=== PATIENT | female | born 1945 | race Caucasian/White ===

== ENCOUNTER → 2016-04-25 | Outpatient (CLI) | payer BC ==
[~2016-04-25] VITALS: Ht 157.5 cm; Wt 93.0 kg
[~2016-04-25] MED LIST: ACET-1256 PO; ALEN70TA2 PO; ATEN50TA8 PO; CHOL1CAP67 PO; FEXO1TAB49 PO; FLUT0.15 INTNAS; GLCSR/500 PO; HYDR-5688 PO; LISI2.5T5 PO; MELO7.5T5 PO; MULT-506 PO; PSYL48.59 PO; SYN137 PO; VENL-273 PO; ZCR10 PO
[2016-04-25 12:50] VITALS: Ht 157.5 cm; Wt 93.0 kg
== END | disposition home or self-care (01) ==
LOC: C.NRED 10:23
PROVIDERS: ATTEND Family Medicine
DX: E11.9 Type 2 diabetes mellitus without complications (principal)

== ENCOUNTER → 2017-01-24 | Outpatient (CLI) | payer BC ==
[~2017-01-24] MED LIST changes: -HYDR-5688 PO; -LISI2.5T5 PO
--- NOTE | 2017-01-24 15:52 | MAMMOGRAPHY REPORT ---
BILATERAL DIGITAL SCREENING MAMMOGRAM WITH CAD: 01/24/2017 CLINICAL HISTORY: Routine screening. Patient has no complaints. TECHNIQUE: Current study was also evaluated with a Computer Aided Detection (CAD) system. Bilateral CC and MLO views were obtained. COMPARISON: Comparison is made to exams dated: 01/17/2016 mammogram, 12/16/2014 mammogram, 12/10/2013 m ammogram, 11/17/2012 mammogram, and 10/24/2011 mammogram - [facility]. BREAST COMPOSITION: The tissue of both breasts is heterogeneously dense, which may obscure small mas ses. FINDINGS: No suspicious masses, calcifications, or areas of architectural distortion are noted in ei ther breast. There has been no significant interval change compared to prior exams. A biopsy marker clip is again noted in the right superior breast. A linear scar marker denotes a scar on the left 12 :00 breast. Bilateral benign-appearing calcifications are again noted. Bilateral asymmetries are st able. IMPRESSION: ACR BI-RADS CATEGORY 2: BENIGN There is no mammographic evidence of malignancy. A 1 year screening mammogram is recommended. The pa tient will receive written notification of the results. Approximately 10% of breast cancers are not detected with mammography. A negative mammographic report should not delay biopsy if a clinically suggestive mass is present. Paola Del Real M.D. /:01/24/2017 15:28:38 Electric Locomotive Crane Operator: Bertha MCDOWELL(Elise)(Master), [facility] letter sent: Normal 1/2 BI-RADS Code: ACR BI-RADS Category 2: Benign
== END | disposition home or self-care (01) ==
LOC: C.MAMM 12:20
PROVIDERS: ATTEND Physician Assistant
DX: Z12.31 Encounter for screening mammogram for malignant neoplasm of breast (principal)

== ENCOUNTER 2017-02-05 07:47 | Inpatient (IN) | payer BC, OTHER ==
[2017-01-03 13:10] VITALS: Ht 157.5 cm; Wt 96.8 kg
--- NOTE | 2017-01-03 13:43 | PAT Medication Instructions ---
Service Date Jan 03, 2017. Current Home Medication List Acetaminophen (Tylenol), 1,000 MG PO PRN Alendronate Sodium (Fosamax), 70 MG PO WK Atenolol (Tenormin), 50 MG PO QAM Cholecalciferol (Vitamin D-3), 1,000 UNITS PO QAM Fexofenadine Hcl (Debbie Allergy), 1 TAB PO NOON Fluticasone Propionate (Nasal) (Flonase Allergy Relief), 2 SPRAYS INTNAS QAM Levothyroxine Sodium (Levothyroxine Sodium), 137 MCG PO QAM Meloxicam (Mobic), 15 MG PO QAM Metformin HCl (Metformin HCl ER), 500 MG PO QAM Multivitamin (Multivitamin), 1 TAB PO QAM Psyllium (Metamucil), 1 DOSE PO NOON Simvastatin (Simvastatin), 10 MG PO QAM Venlafaxine Hcl (Venlafaxine Hcl Er), 75 MG PO QAM Medication Instructions For Your Scheduled Surgery -Check with your surgeon for instructions regarding: Meloxicam (Mobic), 15 MG PO QAM - Continue as directed: Alendronate Sodium (Fosamax), 70 MG PO WK - Hold the following medications 48 hours prior to surgery: Metformin HCl (Metformin HCl ER), 500 MG PO QAM - Hold the following medications the morning of surgery: Multivitamin (Multivitamin), 1 TAB PO QAM Cholecalciferol (Vitamin D-3), 1,000 UNITS PO QAM Fexofenadine Hcl (Debbie Allergy), 1 TAB PO NOON Psyllium (Metamucil), 1 DOSE PO NOON - Take the following medications the morning of surgery with a sip of water: Simvastatin (Simvastatin), 10 MG PO QAM Venlafaxine Hcl (Venlafaxine Hcl Er), 75 MG PO QAM Levothyroxine Sodium (Levothyroxine Sodium), 137 MCG PO QAM Fluticasone Propionate (Nasal) (Flonase Allergy Relief), 2 SPRAYS INTNAS QAM Acetaminophen (Tylenol), 1,000 MG PO PRN (if needed up to 4 hours prior to surgery) Atenolol (Tenormin), 50 MG PO QAM If you have any questions please call us at [phone] or [phone] or [phone]
--- NOTE | 2017-01-03 14:28 | DIAGNOSTIC IMAGING REPORT ---
CHEST PREADMISSION(PA/LAT) CLINICAL HISTORY: 71 years-old Female presenting with preoperative assessment. TECHNIQUE: 01/03/2017 COMPARISON: None. FINDINGS: Cardiac silhouette top normal in size. Minimal bandlike opacity in the left lung base. Left shoulder arthroplasty. Upper abdomen normal. IMPRESSION: 1. Minimal left basilar atelectasis or scarring. No other focal infiltrate. No convincing evidence of acute cardiopulmonary disease. Electronically signed by: Alejandro Mcleod M.D. 01/03/2017 2:27 PM Dictated Date/Time: 01/03/2017 2:26 PM
[2017-01-03 15:30] LABS: BASO % 0.4 %; BASO ABS # 0.03 K/uL (0-0.2); COMPLETE YES; EOS % 2.8 %; HEMATOCRIT 42.7 % (37-47); IG% 0.3 %; LYMPH ABS # 3.12 K/uL (1.2-3.4); MEAN CELL VOLUME 93.6 fL (80-100); MEAN CORPUSCULAR HEMOGLOBIN 30.9 pg (25-34); MEAN PLATELET VOLUME 10.2 fL (7.4-10.4); MONO % 9.3 %; NEUT % 46.2 %; PLATELET COUNT 232 K/uL (130-400); RED BLOOD COUNT 4.56 M/uL (4.2-5.4); WHITE BLOOD COUNT 7.61 K/uL (4.8-10.8)
[2017-01-03 15:34] LABS: URINE APPEARANCE CLEAR (CLEAR); URINE BILIRUBIN NEG (NEG); URINE COLOR YELLOW; URINE NITRITE NEG (NEG); URINE PH 7.5 (4.5-7.5); URINE SPECIFIC GRAVITY 1.016 (1.000-1.030); UROBILINOGEN NEG (NEG); ZZUR CULT IF INDIC CLEAN CATCH NO
[2017-01-03 15:39] LABS: MANUAL MICROSCOPIC REQUIRED? NO; REVIEW REQ? NO
[2017-01-03 15:44] LABS: PARTIAL THROMBOPLASTIN RATIO 1.1; PROTHROMBIN TIME (PATIENT) 10.5 SECONDS (9.0-12.0)
[2017-01-03 16:09] LABS: BUN/CREATININE RATIO 23.5 (10-20); CALCIUM 9.2 mg/dl (8.5-10.1); CREATININE 0.66 mg/dl (0.60-1.20); POTASSIUM 4.4 mmol/L (3.5-5.1)
--- NOTE | 2017-02-04 19:34 | HISTORY & PHYSICAL EXAMINATION ---
DATE OF ADMISSION: 02/05/2017 CHIEF COMPLAINT: Chronic right knee pain. HISTORY OF PRESENT ILLNESS: This is a 71-year-old female patient of Dr. Helm, complaining of chronic right knee pain, longstanding, now progressively getting worse. The patient has failed conservative treatment including anti-inflammatories, Tylenol, intra-articular injections, and the use of a cane. The patient has increased pain with weightbearing activities and her pain does interfere with her activities of daily living. PAST MEDICAL HISTORY: Hypercholesterolemia, irregular heartbeat, snoring, diabetes mellitus, hypothyroidism, osteoarthritis, obesity, and kidney stones. SOCIAL HISTORY: Nonsmoker, nondrinker. PAST SURGICAL HISTORY: Breast biopsy on the left, left shoulder replacement, and right knee arthroscopy for torn meniscus. FAMILY HISTORY: Noncontributory. REVIEW OF SYSTEMS: The patient complains of chronic right knee pain, otherwise denies any shortness of breath, chest pain, nausea, vomiting, or any other joint complaints. MEDICATIONS: Include: 1. Meloxicam 50 mg daily. 2. Levothyroxine 137 mcg daily. 3. Simvastatin 10 mg daily. 4. Atenolol 50 mg daily. 5. Venlafaxine 75 mg daily. 6. Metformin 500 mg daily. 7. Vitamin D3 of 1000 international units daily. 8. Multivitamin daily. 9. Alendronate 70 mg weekly on Friday. 10. ES Tylenol as needed. 11. Debbie as needed. 12. Metamucil as needed. 13. Flonase 2 sprays daily as needed. ALLERGIES: No known drug allergies. PHYSICAL EXAMINATION: GENERAL: Well-developed, well-nourished 71-year-old female in no acute distress. She is alert and oriented x3 and pleasant. HEENT: Normocephalic, atraumatic. Extraocular motions are intact. Pupils are equal and reactive to light. HEART: Regular rate and rhythm. No murmurs appreciated. LUNGS: Clear. ABDOMEN: Soft and nontender. Bowel sounds are present. EXTREMITIES: Right knee reveals a varus deformity with a limited range of motion of 0-125 degrees. She has medial joint line tenderness, crepitation moderately with passive range of motion. She has 4/5 strength. NEUROLOGIC: Neurovascularly, she is intact in her right lower extremity. DIAGNOSES: Right knee end-stage osteoarthritis, hypercholesterolemia, irregular heartbeat, sleep apnea, diabetes mellitus, hypothyroidism, osteoarthritis, obesity, kidney stones. PLAN: The patient was advised of her diagnosis. Indications, risks, benefits, and postop course have all been reviewed. The patient wishes to proceed with a right total knee arthroplasty. Necessary consent forms, preoperative testing and clearances will be obtained.
[2017-02-05] VITALS (9 sets, daily range): BP systolic 108–151; BP diastolic 65–82; PULSE 66–85; TEMP 36.5–37.1; O2SAT 88–99
[~2017-02-05] VITALS: Ht 157.5 cm; Wt 96.8 kg
[2017-02-05] MEDS: TRANEXAMIC ACID INJ 1,000 MG in SYRINGE 0 ML IV SCH ×2 (06:00→06:30)
[~2017-02-05 07:47] MED LIST changes: +ACETAMINOPHEN 500 MG TAB PO SCH; +BUPIVACAINE 0.25% 30 ML VIAL ONE; +BUPIVACAINE 0.5 % 5 MG/1 ML PF 10ML VIAL ONE; +CEFAZOLIN 2000MG IV PUSH 10 ML IV SCH; +CeleBREX 200 MG CAP PO SCH; +FAMOTIDINE 20 MG TAB PO SCH; +FENTANYL CITRATE INJ 50 MCG/1 ML 2 ML VIAL ONE; +GABAPENTIN 300 MG CAP PO SCH; +LACTATED RINGER'S 1000ML 1,000 ML IV SCH; +LACTATED RINGER'S 1000ML 500 ML IV ONE; +LACTATED RINGER'S 1000ML IV SCH; +METOCLOPRAMIDE HCL 10 MG TAB PO SCH; +MIDAZOLAM HCL 1 MG/ML 2ML VIAL ONE; +ROPIVACAINE 5MG/ML 30 ML 150 MG, BUPIVACAINE 0.5% MPF INJ 30 ML, EpINEphrine HCL INJ 0.... INFIL SCH; +TRANEXAMIC ACID INJ 1,000 MG in SODIUM CHLORIDE 0.9% 100ML 100 ML IV SCH
--- NOTE | 2017-02-05 10:08 | History & Physical Bridge Note ---
H&P Re-Evaluation Bridge Note: I have examined the patient, reviewed the History & Physical and in the interval since the performance of the History & Physical I have noted the following changes of clinical significance: No changes noted
[2017-02-05] MEDS ORDERED: POVIDONE-IODINE OP SOLN 30 ML BTL ONE (10:18)
[2017-02-05] MEDS ORDERED: ORTHO JOINT ANESTHETIC ONE (10:18)
[2017-02-05] MEDS ORDERED: BACITRACIN 50000 UNIT VIAL ONE (10:19)
[2017-02-05] MEDS ORDERED: PROPOFOL IV EMULSION 10 MG/ML 20 ML VIAL IV ONE (11:17)
--- NOTE | 2017-02-05 12:55 | [facility] Post Operative Brief Note ---
Immediate Operative Summary Operative Date Feb 05, 2017. Pre-Operative Diagnosis Right knee end-stage osteoarthritis,obesity BMI 39 Post-Operative Diagnosis Same Procedure(s) Performed Right total Knee Arthroplasty Surgeon Dr Garza Lens Finisher Surgeon(s) Christi Epps PA-C Estimated Blood Loss 5cc Findings tricompartmental djd oa Specimens a. Right knee bone and tissue Drains 2 hemovac Anesthesia spinal sedation Complication(s) None Disposition Recovery Room / PACU
[2017-02-05] MEDS ORDERED: SOD PHOSPHATE/SOD BIPHOSPHATE ENEMA 132 ML BTL PR PRN (13:00)
[2017-02-05] MEDS ORDERED: ONDANSETRON INJ 2 MG/ML 2 ML VIAL IV PRN (13:00)
[2017-02-05] MEDS ORDERED: MAGNESIUM HYDROXIDE SUSP 30 ML UDC PO PRN (13:00)
[2017-02-05] MEDS ORDERED: ZOLPIDEM TARTRATE 5 MG TAB PO PRN (13:00)
[2017-02-05] MEDS ORDERED: BISACODYL 10 MG SUPP PR PRN (13:00)
[2017-02-05] MEDS ORDERED: METOCLOPRAMIDE HCL INJ 5 MG/ML 2 ML VIAL IV PRN (13:00)
[2017-02-05] MEDS ORDERED: MoRPHine SULFATE 2 MG/ML CARP IV PRN (13:00)
--- NOTE | 2017-02-05 13:18 | Anesthesiology Progress Note ---
Anesthesia Post Op Note Date & Time Feb 05, 2017 at 13:18 Vital Signs Pain Intensity: 0 Vital Signs Past 12 Hours Date Time Temp Pulse Resp B/P (MAP) Pulse Ox O2 Delivery O2 Flow Rate FiO2 02/05/17 13:15 74 19 114/67 98 Nasal Cannula 2 02/05/17 13:05 36.1 76 22 116/65 97 Nasal Cannula 2 02/05/17 12:55 67 23 91/58 99 Nasal Cannula 2 02/05/17 12:48 36.5 68 21 101/58 99 Oxymask 10 02/05/17 08:46 36.8 66 18 151/82 96 Room Air Notes Mental Status: alert / awake / arousable, participated in evaluation Pt Amnestic to Procedure: Yes Nausea / Vomiting: adequately controlled Pain: adequately controlled Airway Patency, RR, SpO2: stable & adequate BP & HR: stable & adequate Hydration State: stable & adequate Neuraxial Anesthesia: was administered, sensory block is resolving Anesthetic Complications: no major complications apparent
--- NOTE | 2017-02-05 13:18 | DIAGNOSTIC IMAGING REPORT ---
TWO VIEWS RIGHT KNEE CLINICAL HISTORY: Postoperative examination. FINDINGS: AP and crosstable lateral portable views of the right knee are obtained. A right knee arthroplasty is in near anatomic alignment. There has been undersurface remodeling of the patella. No definite acute fracture is seen. Indeterminant cortical irregularity seen along the medial tibial plateau. There are expected postoperative changes around the knee including a surgical drain, soft tissue edema, and subcutaneous gas. IMPRESSION: 1. Expected postoperative changes status post right knee arthroplasty. No definite acute fracture is seen. 2. Cortical irregularity is suggested along the medial tibial plateau, only seen on the frontal view. Clinical correlation will be required. Electronically signed by: Avery Bailon M.D. 02/05/2017 1:17 PM Dictated Date/Time: 02/05/2017 1:16 PM
[2017-02-05] MEDS ORDERED: EpHEDrine SULFATE INJ 50 MG/ML AMP IV PRN (13:30)
[2017-02-05] MEDS ORDERED: ATROPINE SULFATE 0.1 MG/ML 5ML SYR IV PRN (13:30)
[2017-02-05] MEDS ORDERED: GLUCAGON FOR INJ 1 MG VIAL SQ PRN (14:45)
[2017-02-05] MEDS ORDERED: MoRPHine SULFATE 4 MG/ML 1 ML CARP\\VIAL IV PRN (14:45)
[2017-02-05] MEDS ORDERED: DEXTROSE 50% 50 ML SYR IV PRN (14:45)
[2017-02-05] MEDS ORDERED: GLUCOSE 10 TABS/TUBE PO PRN (14:45)
[2017-02-05] MEDS ORDERED: GLUCOSE 40% GEL 15 GM TUBE PO PRN (14:45)
[2017-02-05] MEDS: SODIUM CHLORIDE 0.9% 1000ML 1,000 ML IV SCH (16:12)
[2017-02-05] MEDS: OXYCODONE HCL IR 5 MG TAB (IMMEDIATE RELEASE) PO PRN ×2 (16:56→21:24)
[2017-02-05] MEDS: CEFAZOLIN IV 2,000 MG in SYRINGE 0 ML IV SCH (18:32)
[2017-02-05] MEDS: INSULIN ASPART 100 UNITS/ML 3 ML PEN SC SCH ×2 (18:35→21:00)
--- NOTE | 2017-02-05 19:32 | Progress Note ---
Subjective Date of Service: Feb 05, 2017. Subjective Pt evaluation today including: conversation w/ patient, physical exam, chart review, lab review, review of inpatient medication list feeling ok post op A1c 6.2 reviewed with pt notes lifestyle could improve, exercise could improve. willing to make changes no other acute issues no other acute complaints Review of Systems all other ROS otherwise negative except for as above Objective Vital Signs Date Time Temp Pulse Resp B/P (MAP) Pulse Ox O2 Delivery O2 Flow Rate FiO2 02/05/17 19:20 36.8 85 18 114/71 (85) 94 Room Air 02/05/17 18:09 36.7 77 18 123/74 (90) 97 Nasal Cannula 2.0 02/05/17 16:32 36.7 69 18 119/73 (88) 98 Nasal Cannula 2.0 02/05/17 15:36 36.5 72 18 122/75 (91) 99 Nasal Cannula 2.0 02/05/17 15:06 36.5 73 18 130/82 (98) 99 Nasal Cannula 2.0 02/05/17 14:30 36.6 81 16 108/70 (83) 98 Nasal Cannula 2.0 02/05/17 14:30 Nasal Cannula 02/05/17 14:00 77 17 106/60 96 Nasal Cannula 2 02/05/17 13:45 75 18 110/60 96 Nasal Cannula 2 02/05/17 13:30 69 16 97/59 96 Nasal Cannula 2 02/05/17 13:15 74 19 114/67 98 Nasal Cannula 2 02/05/17 13:05 36.1 76 22 116/65 97 Nasal Cannula 2 02/05/17 12:55 67 23 91/58 99 Nasal Cannula 2 02/05/17 12:48 36.5 68 21 101/58 99 Oxymask 10 02/05/17 08:46 36.8 66 18 151/82 96 Room Air Physical Exam General Appearance: no apparent distress Eyes: EOMI ENT: hearing grossly normal Neck: trachea midline Respiratory/Chest: no respiratory distress, no accessory muscle use Neurologic/Psychiatric: first sampler II-XII nml as tested, alert, normal mood/affect Skin: normal color, warm/dry Laboratory Results Last 24 Hours Test 02/05/17 08:15 02/05/17 13:14 02/05/17 14:53 02/05/17 16:57 Bedside Glucose 117 mg/dl 100 mg/dl 98 mg/dl 91 mg/dl Assessment and Plan DM2 - A1c 6.2 on low dosing of metformin. low dose supplemental insulin for now , discussed further lifestyle change as she recovers as it appears she is at the brink of being able to eliminate the need for DM meds with lifestyle hypothyroid - continue synthroid hyperlipid - continue simvastatin DVT proph - per ortho
[2017-02-05] MEDS: ACETAMINOPHEN 500 MG TAB PO SCH (21:25)
[2017-02-05] MEDS: ASPIRIN 81 MG ECTAB PO SCH (21:25)
[2017-02-05] MEDS: DOCUSATE SODIUM 100 MG CAP PO SCH (21:25)
[2017-02-06] MEDS: CEFAZOLIN IV 2,000 MG in SYRINGE 0 ML IV SCH (01:39)
[2017-02-06] MEDS: SODIUM CHLORIDE 0.9% 1000ML 1,000 ML IV SCH (01:39)
[2017-02-06 02:00] VITALS: BP 114/72; PULSE 67; O2SAT 95
[2017-02-06] MEDS: OXYCODONE HCL IR 5 MG TAB (IMMEDIATE RELEASE) PO PRN ×2 (03:26→10:17)
[2017-02-06 03:42] VITALS: BP 105/64; PULSE 76; TEMP 36.9; O2SAT 97
[2017-02-06] MEDS: LEVOTHYROXINE 137 MCG TAB PO SCH (05:48)
[2017-02-06] MEDS: ACETAMINOPHEN 500 MG TAB PO SCH ×3 (05:48→21:11)
[2017-02-06 06:11] LABS: HEMATOCRIT 36.2 % (37-47); MEAN CORPUSCULAR HEMOGLOBIN 30.4 pg (25-34); MEAN CORPUSCULAR HGB CONC 32.3 g/dl (32-36); MEAN PLATELET VOLUME 9.2 fL (7.4-10.4); PLATELET COUNT 175 K/uL (130-400); RED BLOOD COUNT 3.85 M/uL (4.2-5.4); WHITE BLOOD COUNT 9.83 K/uL (4.8-10.8)
[2017-02-06 06:39] LABS: CALCIUM 7.8 mg/dl (8.5-10.1); CREATININE 0.69 mg/dl (0.60-1.20); POTASSIUM 4.1 mmol/L (3.5-5.1)
--- NOTE | 2017-02-06 07:05 | OPERATIVE REPORT ---
DATE OF OPERATION: 02/05/2017 INDICATION FOR PROCEDURE: The patient is a 71-year-old female with chronic progressive osteoarthritis in her right knee. Radiographs demonstrate she has [id number] in the medial compartment and she has a varus knee. She also has patellofemoral DJD. She also has obesity, BMI 39. PREOPERATIVE DIAGNOSES: End-stage osteoarthritis, right knee; obesity, body mass index 39. POSTOPERATIVE DIAGNOSES: End-stage osteoarthritis, right knee; obesity, body mass index 39. PROCEDURE: Right total knee arthroplasty. SURGEON: Tristin Garza MD BUCKLE STRAP DRUM OPERATOR: Chuckie Epps PA-C ANESTHESIA: Spinal sedation, Orthomix. ESTIMATED BLOOD LOSS: 50 mL. DRAINS: Two Hemovac. COMPLICATIONS: None. OPERATIVE PROCEDURE: The patient was taken to the operating room, anesthetized under spinal anesthesia and sedation. She was placed supine on the operating room table. Pneumatic tourniquet was placed on right upper obese thigh. Her right lower extremity was prepped and draped with ChloraPrep in usual sterile fashion. The patient did have Ancef IV preop. Her right lower extremity was elevated, exsanguinated with Esmarch bandage. Pneumatic tourniquet was raised to 350 mmHg because of the obesity. Knee exam demonstrates she had full extension and she had flexion until her thigh met her calf which was around 115 to 120 degrees. The knee had no particular instability and did have an obese leg. An anterior incision was made across the right knee, skin was incised a moderately deep layer of fat. Subcutaneous flaps were elevated. An incision was made through the medial retinaculum extended up into the mid third of the quadriceps tendon and extended down to the medial tibial tubercle. Intraarticular findings demonstrated she had tricompartmental DJD, [id number] in the medial compartment, she had grade 4 wear in her upper trochlear groove and central patella. She had tricompartmental osteophytes. I used the [employer] Journey 2.0 total knee arthroplasty system using [employer] MRI templating. She was sized for a 4 femur, 2 tibia, but we did upsize the tibia to 3 intraoperatively. The knee was exposed by excising the infrapatellar fat pad and the fat pad over the anterior femur for placement of the component in that area. We did some partial synovectomy of the suprapatellar pouch where there were some thickened synovitis and synovial bands. I released the lateral synovial bands. I did a subperiosteal peel lateral release around the patella, excised the cruciate ligaments, excised the medial meniscus remnants and lateral meniscus. I did not have to do any particular releases as she had a fairly balanced knee. With the femur exposed, the custom femoral cutting block was pinned in position and the distal femoral cut was made. Then the 5-in-1 cutting block with a size 4 femur was used. The anterior, posterior and chamfer cuts were made. Then the knee was extended and a subperiosteal peel lateral release was performed. The patient had a very tight lateral retinaculum and we had some difficulty everting the patella at all. The patella width was measured and width was reproduced using a freehand cut technique and we used a 29 patellar component. Drill holes were made and the excess lateral facet was beveled off to prevent any impingement on the femoral condyle of the prosthetic. Then the tibia was subluxed and the retractors were placed and the custom tibial cutting block was pinned in position. The proximal tibial cut was made. We used a lamina bargeman to assess ligamentous balance and ligaments were balanced in extension and flexion. Then the tibia was re-exposed and the tibial baseplate size 2 was placed, but we thought it was too small, so we went ahead with a 3 which gave more appropriate coverage. It was externally rotated in line with the tibial tubercle, pinned in position and the punch for the stem was used. The fourth femoral trial was inserted and centered and the notch cutting device was used. A collet was placed and we did trial tibial inserts and 13 insert gave balanced ligaments through full range of motion. The patella had some slight liftoff with maximum flexion, so we did do a lateral release of the lateral retinaculum leaving the synovium intact and this allowed the patella to track completely centrally at this time. The trials were removed. The anesthetic Orthomix cocktail was injected per protocol. The knee was copiously irrigated with pulsatile lavage, antibiotic solution and bacitracin. The final components were cemented with Simplex G cement. Final components were the 4 right Oxinium posterior stabilized [employer] Journey 2.0 femur and tibia size 3 and the polyethylene posterior stabilized high-flex 13 and the 29 patella dome patella. While the cement cured, we used Betadine soak per protocol. I then irrigated out copiously with antibiotic solution and bacitracin. Brought 2 drains out laterally and connected them to Hemovac. I then closed the quadriceps tendon and medial retinaculum with [id number] #1 Vicryl sutures. I took the knee full range of motion and repair was secured. The subcutaneous tissues were closed with interrupted 2-0 Vicryl and #1 Vicryl. Then we closed the skin with a ZipLine closure device. We placed protective barrier and Silverlon dressing over that and the tourniquet was let down. The patient had approximately 5 mL of blood loss and tolerated the procedure well. JENNIFER Murphy was my wheelchair van operator first responder, he functioned as wheelchair van operator first responder throughout the entire procedure. He assisted in patient positioning, prepping, draping, leg positioning, soft tissue retraction, instrument management and assisted in the skin closure, and will participate in the postoperative care of patient. I attest to the content of the Intraoperative Record and any orders documented therein. Any exception s are noted below.
[2017-02-06 07:10] VITALS: BP 110/68; PULSE 75; TEMP 36.9; O2SAT 97
[2017-02-06] MEDS: INSULIN ASPART 100 UNITS/ML 3 ML PEN SC SCH ×4 (08:00→21:00)
--- NOTE | 2017-02-06 08:06 | Orthopedic Progress Note ---
Orthopedic Progress Note Date of Service Feb 06, 2017. Subjective Post OP Day: 1 Reports: feeling well (Pt states O2 sat was 88 on RA, now on O2 protocal, denies CP or SOB) Objective N/V intact, dressing C/D/I (Hemovac in place), toes mobile Date Time Temp Pulse Resp B/P (MAP) Pulse Ox O2 Delivery O2 Flow Rate FiO2 02/06/17 07:10 36.9 75 16 110/68 (82) 97 Nasal Cannula 2.0 02/06/17 03:42 36.9 76 18 105/64 (78) 97 Nasal Cannula 2.0 02/06/17 02:00 67 16 114/72 (86) 95 Nasal Cannula 2.0 02/05/17 23:18 96 Nasal Cannula 2.0 02/05/17 23:15 37.1 80 18 108/65 (79) 88 Room Air 02/05/17 23:07 Nasal Cannula 2.0 02/05/17 19:20 36.8 85 18 114/71 (85) 94 Room Air 02/05/17 18:09 36.7 77 18 123/74 (90) 97 Nasal Cannula 2.0 02/05/17 16:50 Nasal Cannula 02/05/17 16:32 36.7 69 18 119/73 (88) 98 Nasal Cannula 2.0 02/05/17 15:36 36.5 72 18 122/75 (91) 99 Nasal Cannula 2.0 02/05/17 15:06 36.5 73 18 130/82 (98) 99 Nasal Cannula 2.0 02/05/17 14:30 36.6 81 16 108/70 (83) 98 Nasal Cannula 2.0 02/05/17 14:30 Nasal Cannula 02/05/17 14:00 77 17 106/60 96 Nasal Cannula 2 02/05/17 13:45 75 18 110/60 96 Nasal Cannula 2 02/05/17 13:30 69 16 97/59 96 Nasal Cannula 2 02/05/17 13:15 74 19 114/67 98 Nasal Cannula 2 02/05/17 13:05 36.1 76 22 116/65 97 Nasal Cannula 2 02/05/17 12:55 67 23 91/58 99 Nasal Cannula 2 02/05/17 12:48 36.5 68 21 101/58 99 Oxymask 10 02/05/17 08:46 36.8 66 18 151/82 96 Room Air Laboratory Results 24 Hours: Test 02/06/17 05:59 Hematocrit 36.2 % Hemoglobin 11.7 g/dL Assessment & Plan Assessment: 71 yo female stable POD #1 s/p right TKA Plan: 1. Med management 2. DVT prophylaxis- ASA, SCDs 3. PT/OT 4. D/C planning- home w/ HH
[2017-02-06] MEDS: CHOLECALCIFEROL 1000 INTER.UNIT TAB PO SCH (08:52)
[2017-02-06] MEDS: DOCUSATE SODIUM 100 MG CAP PO SCH ×2 (08:52→21:11)
[2017-02-06] MEDS: ASPIRIN 81 MG ECTAB PO SCH ×2 (08:52→21:11)
[2017-02-06] MEDS: VENLAFAXINE HCL XR 75 MG CAPXR PO SCH (08:52)
[2017-02-06] MEDS: PANTOprazole SOD 40 MG TAB PO SCH (08:52)
[2017-02-06] MEDS: MULTIVITAMIN TAB PO SCH (08:52)
[2017-02-06] MEDS: SIMVASTATIN 10 MG TAB PO SCH (08:52)
[2017-02-06] MEDS: FLUTICASONE PROPIONATE NA SPR 16 GM BTL SCH (08:52)
[2017-02-06] MEDS: TRAMADOL HCL 50 MG TAB PO PRN ×3 (08:54→18:38)
[2017-02-06 08:57] VITALS: O2SAT 91
--- NOTE | 2017-02-06 10:50 | Hospitalist Progress Note ---
Hospitalist Progress Note Date of Service Feb 06, 2017. Subjective Pt evaluation today including: conversation w/ patient, physical exam, lab review, review of studies, review of inpatient medication list Voiding: no voiding problems Patient states she is feeling well today. Pain is moderately controlled. Just finished working w/ PT. Eating and drinking OK. +Flatus postop, no BM. She was told her O2 dropped last evening and required O2 supplement. Her PCP has recommended sleep study after surgery. Patient denies any fever, chills, sweats, lightheadedness, dizziness, vision changes, CP, palpitations, edema, SOB, wheezing, cough, abdominal pain, nausea, vomiting, diarrhea, urinary symptoms, melena, numbness/tingling, weakness, anxiety/depression, active bleeding, or new skin discoloration/changes. Medications Current Inpatient Medications Medications (Trade) Dose Ordered Sig/Sanjuana Route Start Time Stop Time Status Last Admin Dose Admin Atenolol (Tenormin Tab) 50 mg QAM PO 02/06/17 09:00 03/08/17 08:59 02/06/17 08:54 50 MG Fexofenadine HCl (Debbie Tab) 180 mg DAILY@1200 PO 02/06/17 12:00 03/08/17 11:59 Fluticasone Propionate (Flonase Nasal [place]) 2 sprays QAM NA 02/06/17 09:00 03/08/17 08:59 02/06/17 08:52 2 SPRAYS Levothyroxine Sodium (Synthroid Tab) 137 mcg DAILYBB PO 02/06/17 06:00 03/08/17 05:59 02/06/17 05:48 137 MCG Simvastatin (Zocor Tab) 10 mg QAM PO 02/06/17 09:00 03/08/17 08:59 02/06/17 08:52 10 MG Venlafaxine HCl (effeXOR EXTENDED REL CAP) 75 mg QAM PO 02/06/17 09:00 03/08/17 08:59 02/06/17 08:52 75 MG Cholecalciferol (Vitamin D Tab) 1,000 inter.unit QAM PO 02/06/17 09:00 03/08/17 08:59 02/06/17 08:52 1,000 INTER.UNIT Psyllium Hydrophilic Mucilloid (Metamucil Powder) 1 pkt DAILY@1200 PO 02/06/17 12:00 03/08/17 11:59 Oxycodone HCl (Roxicodone Immediate Rel Tab) 1 TABLET FOR PAIN RATING... Q4H PRN PO 02/05/17 13:00 02/19/17 12:59 02/06/17 10:17 5 MG Morphine Sulfate (MoRPHine SULFATE INJ) 2 mg Q4H PRN IV 02/05/17 13:00 02/19/17 12:59 Acetaminophen (Tylenol Tab) 1,000 mg Q8 PO 02/05/17 22:00 03/07/17 21:59 02/06/17 05:48 1,000 MG Magnesium Hydroxide (Milk Of Magnesia Susp) 30 ml Q6H PRN PO 02/05/17 13:00 03/07/17 12:59 Bisacodyl (Dulcolax Supp) 10 mg DAILY PRN RI 02/05/17 13:00 03/07/17 12:59 Sodium Biphosphate/ Sodium Phosphate (Fleet Enema) 132 ml DAILY PRN RI 02/05/17 13:00 03/07/17 12:59 Docusate Sodium (coLACE CAP) 100 mg BID PO 02/05/17 21:00 03/07/17 20:59 02/06/17 08:52 100 MG Diphenhydramine HCl (Benadryl Cap) 25 mg Q8H PRN PO 02/05/17 13:00 03/07/17 12:59 Zolpidem Tartrate (Ambien Tab) 5 mg HSZ PRN PO 02/05/17 13:00 03/07/17 12:59 Multivitamins (Multivitamin Tab) 1 tab QAM PO 02/06/17 09:00 03/08/17 08:59 02/06/17 08:52 1 TAB Ondansetron HCl (Zofran Inj) 4 mg Q6H PRN IV 02/05/17 13:00 03/07/17 12:59 Metoclopramide HCl (Reglan Inj) 10 mg Q6H PRN IV 02/05/17 13:00 03/07/17 12:59 Pantoprazole Sodium (Protonix Tab) 40 mg QAM PO 02/06/17 09:00 03/08/17 08:59 02/06/17 08:52 40 MG Tramadol HCl (Ultram Tab) 1 tablet for pain rating... Q4H PRN PO 02/05/17 13:00 03/07/17 12:59 02/06/17 08:54 50 MG Aspirin (Ecotrin Tab) 81 mg BID PO 02/05/17 21:00 03/07/17 20:59 02/06/17 08:52 81 MG Insulin Aspart (novoLOG ASPART) SLIDING SCALE G... ACHS SC 02/05/17 17:15 03/07/17 17:14 02/05/17 18:35 4 UNITS Glucose (Glucose 40% Gel) 15-30 GRAMS 15 GRAMS... UD PRN PO 02/05/17 14:45 03/07/17 14:44 Glucose (Glucose Chew Tab) 4-8 Tablets 4 Tabl... UD PRN PO 02/05/17 14:45 03/07/17 14:44 Dextrose (Dextrose 50% 50ML Syringe) 25-50ML OF 50% DW IV FOR... UD PRN IV 02/05/17 14:45 03/07/17 14:44 Glucagon (Glucagon Inj) 1 mg UD PRN SQ 02/05/17 14:45 03/07/17 14:44 Morphine Sulfate (MoRPHine SULFATE INJ) 4 mg Q4H PRN IV 02/05/17 14:45 02/19/17 14:44 Objective Vital Signs Date Time Temp Pulse Resp B/P (MAP) Pulse Ox O2 Delivery O2 Flow Rate FiO2 02/06/17 08:57 91 Room Air 02/06/17 07:40 Nasal Cannula 2.0 02/06/17 07:10 36.9 75 16 110/68 (82) 97 Nasal Cannula 2.0 02/06/17 03:42 36.9 76 18 105/64 (78) 97 Nasal Cannula 2.0 02/06/17 02:00 67 16 114/72 (86) 95 Nasal Cannula 2.0 02/05/17 23:18 96 Nasal Cannula 2.0 02/05/17 23:15 37.1 80 18 108/65 (79) 88 Room Air 02/05/17 23:07 Nasal Cannula 2.0 02/05/17 19:20 36.8 85 18 114/71 (85) 94 Room Air 02/05/17 18:09 36.7 77 18 123/74 (90) 97 Nasal Cannula 2.0 02/05/17 16:50 Nasal Cannula 02/05/17 16:32 36.7 69 18 119/73 (88) 98 Nasal Cannula 2.0 02/05/17 15:36 36.5 72 18 122/75 (91) 99 Nasal Cannula 2.0 02/05/17 15:06 36.5 73 18 130/82 (98) 99 Nasal Cannula 2.0 02/05/17 14:30 36.6 81 16 108/70 (83) 98 Nasal Cannula 2.0 02/05/17 14:30 Nasal Cannula 02/05/17 14:00 77 17 106/60 96 Nasal Cannula 2 02/05/17 13:45 75 18 110/60 96 Nasal Cannula 2 02/05/17 13:30 69 16 97/59 96 Nasal Cannula 2 02/05/17 13:15 74 19 114/67 98 Nasal Cannula 2 02/05/17 13:05 36.1 76 22 116/65 97 Nasal Cannula 2 02/05/17 12:55 67 23 91/58 99 Nasal Cannula 2 02/05/17 12:48 36.5 68 21 101/58 99 Oxymask 10 Physical Exam General Appearance: no apparent distress, + obese Eyes: normal inspection, PERRL ENT: hearing grossly normal Neck: supple Respiratory/Chest: lungs clear, no respiratory distress, no accessory muscle use Cardiovascular: regular rate, rhythm Abdomen: normal bowel sounds, non tender, soft Extremities: no pedal edema, no calf tenderness, + pertinent finding (Hemovac w / bloody drainage ) Neurologic/Psychiatric: alert, normal mood/affect, oriented x 3 Skin: normal color, warm/dry, no rash Laboratory Results Last 24 Hours Test 02/05/17 13:14 02/05/17 14:53 02/05/17 16:57 02/05/17 20:20 Bedside Glucose 100 mg/dl 98 mg/dl 91 mg/dl 125 mg/dl Test 02/06/17 05:59 02/06/17 08:02 White Blood Count 9.83 K/uL Red Blood Count 3.85 M/uL Hemoglobin 11.7 g/dL Hematocrit 36.2 % Mean Corpuscular Volume 94.0 fL Mean Corpuscular Hemoglobin 30.4 pg Mean Corpuscular Hemoglobin Concent 32.3 g/dl RDW Standard Deviation 49.1 fL RDW Coefficient of Variation 14.2 % Platelet Count 175 K/uL Mean Platelet Volume 9.2 fL Sodium Level 138 mmol/L Potassium Level 4.1 mmol/L Chloride Level 106 mmol/L Carbon Dioxide Level 25 mmol/L Anion Gap 7.0 mmol/L Blood Urea Nitrogen 14 mg/dl Creatinine 0.69 mg/dl Est Creatinine Clear Calc Drug Dose 83.6 ml/min Estimated GFR () 102.9 Estimated GFR (Non- 88.8 BUN/Creatinine Ratio 20.0 Random Glucose 146 mg/dl Calcium Level 7.8 mg/dl Bedside Glucose 139 mg/dl Assessment and Plan Patient is a 71 y/o female, with PMHx of T2DM, hypothyroidism, anxiety, and HLD , s/p R TKA by Dr. Garza on 02/05. s/p R TKA by Dr. Garza on 02/05: - Pain management, PT/OT, and DVT prophylaxis as per primary team - Postop CBC and PRP- STABLE T2DM- HgbA1c 6.2%: - Metformin 500 mg QAM held while inpatient- resume at discharge - BSG ACHS and ISS Hypothyroidism: Continue Synthroid 137 mcg daily HLD: Continue Simvastatin 10 mg daily Irregular heartbeat: Continue Atenolol 50 mg QAM Anxiety: Effexor 75 mg daily ?JAYLIN: f/u w/ PCP for sleep study GI prophylaxis: Protonix 40 mg daily DVT prophylaxis: ASA 81 mg BID as per surgical team Code Status: LEVEL I, FULL Dispo: As per primary team- planning for home w/ [facility] - Patient stable for discharge from medical standpoint, will sign-off.
[2017-02-06] MEDS: FEXOFENADINE HCL 180 MG TAB PO SCH (12:00)
[2017-02-06] MEDS: PSYLLIUM 58.6% PWD PACK S\\F PO SCH (12:00)
[2017-02-06 13:07] VITALS: BP 111/69; PULSE 76; TEMP 37; O2SAT 92
[2017-02-06 15:00] VITALS: BP 124/74; PULSE 82; TEMP 36.8; O2SAT 93
[2017-02-07] VITALS (7 sets, daily range): BP systolic 118–132; BP diastolic 74–80; PULSE 68–84; TEMP 36.4–37.4; O2SAT 89–95
[2017-02-07] MEDS: TRAMADOL HCL 50 MG TAB PO PRN ×3 (01:57→16:06)
[2017-02-07] MEDS: ACETAMINOPHEN 500 MG TAB PO SCH ×2 (06:11→15:20)
[2017-02-07] MEDS: LEVOTHYROXINE 137 MCG TAB PO SCH (06:11)
[2017-02-07 06:27] LABS: HEMATOCRIT 34.4 % (37-47); MEAN CELL VOLUME 93.5 fL (80-100); MEAN CORPUSCULAR HEMOGLOBIN 30.4 pg (25-34); MEAN CORPUSCULAR HGB CONC 32.6 g/dl (32-36); MEAN PLATELET VOLUME 9.5 fL (7.4-10.4); PLATELET COUNT 169 K/uL (130-400); RED BLOOD COUNT 3.68 M/uL (4.2-5.4); WHITE BLOOD COUNT 10.07 K/uL (4.8-10.8)
[2017-02-07 06:59] LABS: CALCIUM 8.5 mg/dl (8.5-10.1); CREATININE 0.49 mg/dl (0.60-1.20); POTASSIUM 3.9 mmol/L (3.5-5.1)
[2017-02-07] MEDS: INSULIN ASPART 100 UNITS/ML 3 ML PEN SC SCH ×2 (08:00→12:00)
--- NOTE | 2017-02-07 08:02 | Orthopedic Progress Note ---
Orthopedic Progress Note Date of Service Feb 07, 2017. Subjective Post OP Day: 2 Reports: feeling well, pain controlled w PO medications, Denies: complaints, chest pain, SOB, nausea / vomiting, light headedness, calf pain Additional Notes: HAD ONE ISOLATED EPISODE OF DIZZINESS IN BR, NONE SINCE. gOT "WOOZY" ONE TIME IN PT YESTERDAY. THINKS IT MAY BE RELATED TO OXY. Objective calves soft nontender, N/V intact, capillary refill less than 2 sec., dressing C /D/I, A&O x3, toes mobile SILVERLON IN TACT. Date Time Temp Pulse Resp B/P (MAP) Pulse Ox O2 Delivery O2 Flow Rate FiO2 02/07/17 07:43 37.4 78 20 132/80 (97) 91 Room Air 02/07/17 00:20 Room Air 02/07/17 00:04 36.9 84 16 131/76 (94) 90 Room Air 02/06/17 15:20 Room Air 02/06/17 15:00 36.8 82 18 124/74 (91) 93 Room Air 02/06/17 13:07 37.0 76 16 111/69 (83) 92 Room Air 02/06/17 08:57 91 Room Air Laboratory Results 24 Hours: Test 02/07/17 06:09 Hematocrit 34.4 % Hemoglobin 11.2 g/dL Assessment & Plan Assessment: 71 yo female stable POD #2 s/p right TKA Plan: 1. Med management 2. DVT prophylaxis- ASA, SCDs 3. PT/OT 4. D/C planning- home w/ HH TODAY LATER TOWARDS DINNER IF NO DIZZINESS, WILL STOP OXY PATIENT STATES TRAMADOL HAS DONE WELL FOR HER IN THE PAST.
[2017-02-07] MEDS ORDERED: ULT50X PO (08:04)
[2017-02-07] MEDS ORDERED: ACET-24 PO (08:04)
[2017-02-07] MEDS ORDERED: ASPEC81 PO (08:04)
--- NOTE | 2017-02-07 08:06 | Discharge Instructions ---
Discharge Instructions Date of Service Feb 07, 2017. Admission Reason for Admission: Right Knee Degenerative Joint Disease Discharge Discharge Diagnosis / Problem: RIGHT TKA Discharge Goals Goal(s): Improve function Activity Recommendations Activity Limitations: as noted below . Instructions / Follow-Up Instructions / Follow-Up ACTIVITY RECOMMENDATIONS: SELF CARE INSTRUCTIONS AFTER TOTAL KNEE REPLACEMENT A. You may need to continue a physical therapy program after discharge from the hospital. There are several options available to you. Your doctor will assist you in selecting the best one for you. 1. An out-patient facility 2 to 3 times a week for therapy or home therapy. 2. Continue working on all exercises taught to you in the hospital. Your goals should be to increase bending of your knee to 90 degrees and beyond and to fully straighten your knee. B. You may progress at your own pace from walking with a walker or crutches to a cane; then to no assistive devices. C. Make walking a part of your daily routine. Be up as much as comfortable with rest periods throughout the day. Rest with leg elevation is very important. Use the ice wrap frequently for the first 3-4 weeks. D. There are no restrictions on activities. 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 E. Wear the long elastic stockings (KATELYN hose) 20 hours a day for 2 weeks after surgery. They can be removed several times a day for laundering and for a bath. F. You may shower, no tub baths until cleared by your doctor. SPECIAL CARE INSTRUCTIONS: VERY IMPORTANT TO READ AND REVIEW A. There are a few signs you need to watch for after you are home. Call [facility] if you notice any of the followin. Increased severe knee pain. Some pain is expected especially when you exercise. 2. Increased swelling in your leg or knee; pain or swelling of the calf muscle in either lower leg. 3. Any fluid drainage from the incision. 4. Shortness of breath or chest pain. B. Please call [facility] at if you have any concerns or questions about your operation or recovery. The doctor or his nurse will return your call promptly. C. You must take antibiotics before dental work, bladder, bowel or other surgery. Your doctor will provide you with a permanent care to carry describing this precaution. IMPORTANT: * REMEMBER TO TAKE ASPIRIN, 81 MG, TWICE DAILY FOR 4 WEEKS UNLESS OTHERWISE DIRECTED. THIS IS YOUR BLOOD THINNER. * HIGH RISK PATIENTS MAY BE PRESCRIBED A STRONGER BLOOD THINNER. THIS WILL BE PROVIDED AT DISCHARGE. * CALL IF INCREASED PAIN, REDNESS, DRAINAGE OR FEVER GREATER THAT 101. * WEAR KATELYN HOSE 20 HOURS PER DAY FOR 2 WEEKS. * YOU MAY HAVE A LARGE BAND-AID LIKE DRESSING (SILVERON). THIS WILL REMAIN ON YOUR INCISION FOR 7 DAYS, THEN CAN BE REMOVED. IF INCISION IS LEAKING THROUGH DRESSING, CALL THE OFFICE . YOU WILL HAVE A "ZIPPER" TYPE DRESSING UNDER THE SILVERLON, PLEASE KEEP THIS IN TACT UNTIL FOLLOW UP IN OFFICE. FOLLOW UP VISIT: If appointment is not already scheduled: Please call [facility] to make a follow-up appointment for 2 weeks after your surgery at . Current Hospital Diet Patient's current hospital diet: Diabetes Type 2 Diet Discharge Diet Recommended Diet: Diabetes Type 2 Diet Procedures Procedures Performed: Right total Knee Arthroplasty Pending Studies Studies pending at discharge: no Laboratory Results Hemoglobin A1c Test 01/03/17 14:03 Range/Units Estimated Average Glucose 131 mg/dl Hemoglobin A1c 6.2 H 4.5-5.6 % Medical Emergencies . Who to Call and When: Medical Emergencies: If at any time you feel your situation is an emergency, please call 911 immediately. . Non-Emergent Contact Non-Emergency issues call your: Primary Care Provider . "Provider Documentation" section prepared by Chuckie Epps. . VTE Core Measure Inpt VTE Proph given/why not?: Other Anticoagulation (ASA), T.E.Evin Oliveira, SCD's [place] Drug Monitoring Program Search Results: patient reviewed within database, no issues identified
[2017-02-07] MEDS: PANTOprazole SOD 40 MG TAB PO SCH (09:00)
[2017-02-07] MEDS: FLUTICASONE PROPIONATE NA SPR 16 GM BTL SCH (09:16)
[2017-02-07] MEDS: MULTIVITAMIN TAB PO SCH (09:17)
[2017-02-07] MEDS: VENLAFAXINE HCL XR 75 MG CAPXR PO SCH (09:17)
[2017-02-07] MEDS: CHOLECALCIFEROL 1000 INTER.UNIT TAB PO SCH (09:18)
[2017-02-07] MEDS: SIMVASTATIN 10 MG TAB PO SCH (09:18)
[2017-02-07] MEDS: ASPIRIN 81 MG ECTAB PO SCH (10:47)
[2017-02-07] MEDS: DOCUSATE SODIUM 100 MG CAP PO SCH (10:47)
[2017-02-07] MEDS: FEXOFENADINE HCL 180 MG TAB PO SCH (10:49)
[2017-02-07] MEDS: PSYLLIUM 58.6% PWD PACK S\\F PO SCH (10:49)
--- NOTE | 2017-02-21 09:44 | DISCHARGE SUMMARY ---
HISTORY OF PRESENT ILLNESS: This is a 71-year-old female patient of Dr. Garza'iva complaining of chronic right knee pain, long-standing progressively getting worse. The patient failed conservative treatment and elected to proceed with a right total knee arthroplasty. PAST MEDICAL HISTORY: Hypercholesterolemia, irregular heartbeat, snoring, diabetes mellitus, hypothyroidism, osteoarthritis, obesity and kidney stones. POSTOPERATIVE COURSE: The patient underwent elective right total knee arthroplasty on 02/05/2017. She was followed closely postoperatively with DVT prophylaxis in the form of aspirin, physical therapy, medical consultation and pain control. Postoperatively postoperative day #1 she did have some decrease in her oxygen saturations overnight and was given supplemental oxygen. She subsequently resolved that problem and was able to be discharged on room air, questionable obstructive sleep apnea. The patient will follow up with her family physician for possible sleep study as an outpatient. Otherwise, uneventful postoperative course. PHYSICAL EXAMINATION: On discharge, patient's right knee incision was clean, dry and intact. ZipLine closure was intact. There was no redness or drainage. There is no calf tenderness. Negative Homans sign. Neurologically and neurovascularly she was intact in her right lower extremity. DIAGNOSES: Status post right total knee arthroplasty with ZipLine closure. The patient also has a history of hypercholesterolemia, irregular heartbeat, snoring, diabetes mellitus, hypothyroidism, osteoarthritis, obesity and kidney stones. PLAN: The patient was discharged home with home health services. She will continue her preadmission medications with the addition of pain control. She will continue aspirin twice daily for DVT prophylaxis. The patient will make a note to follow up with her primary care physician for probable sleep study due to her low oxygenation saturations at night.
== END 2017-02-07 16:40 | disposition home health service (06) | DRG 470 ==
LOC: C.ACU 07:47 → C.3E 10:05 → ENRESERV 13:34
PROVIDERS: ADMIT Orthopaedic Surgery Sports Medicine; ATTEND Orthopaedic Surgery Sports Medicine
PROC: 0SRC0J9 Replacement of Right Knee Joint with Synthetic Substitute, Cemented, Open Approach (ICD-10-PCS; principal; 2017-02-05 10:10)
DX: M17.11 Unilateral primary osteoarthritis, right knee (principal); E78.5 Hyperlipidemia, unspecified; E11.9 Type 2 diabetes mellitus without complications; E03.9 Hypothyroidism, unspecified; E66.9 Obesity, unspecified; Z96.612 Presence of left artificial shoulder joint; F41.9 Anxiety disorder, unspecified; I49.9 Cardiac arrhythmia, unspecified; Z68.39 Body mass index [BMI] 39.0-39.9, adult; Z87.442 Personal history of urinary calculi

== ENCOUNTER → 2017-05-15 | Outpatient (CLI) | payer BC ==
[~2017-05-15] MED LIST changes: -ACET-1256 PO; +ACET-24 PO; -ACETAMINOPHEN 500 MG TAB PO SCH; +ASPEC81 PO; -BUPIVACAINE 0.25% 30 ML VIAL ONE; -BUPIVACAINE 0.5 % 5 MG/1 ML PF 10ML VIAL ONE; -CEFAZOLIN 2000MG IV PUSH 10 ML IV SCH; -CeleBREX 200 MG CAP PO SCH; -FAMOTIDINE 20 MG TAB PO SCH; -FENTANYL CITRATE INJ 50 MCG/1 ML 2 ML VIAL ONE; -GABAPENTIN 300 MG CAP PO SCH; -LACTATED RINGER'S 1000ML 1,000 ML IV SCH; -LACTATED RINGER'S 1000ML 500 ML IV ONE; -LACTATED RINGER'S 1000ML IV SCH; -MELO7.5T5 PO; -METOCLOPRAMIDE HCL 10 MG TAB PO SCH; -MIDAZOLAM HCL 1 MG/ML 2ML VIAL ONE; -ROPIVACAINE 5MG/ML 30 ML 150 MG, BUPIVACAINE 0.5% MPF INJ 30 ML, EpINEphrine HCL INJ 0.... INFIL SCH; -TRANEXAMIC ACID INJ 1,000 MG in SODIUM CHLORIDE 0.9% 100ML 100 ML IV SCH; +ULT50X PO
== END | disposition home or self-care (01) ==
LOC: C.RC 09:03
PROVIDERS: ATTEND Physician Assistant
DX: R05 Cough (principal)

== ENCOUNTER 2018-09-08 08:02 | Inpatient (IN) ==
--- NOTE | 2018-08-26 11:38 | Anesthesiology Consultation ---
Date of Service August 26, 2018 Assessment & Plan (1) Encounter for pre-operative examination: - No previous intubation records. Chart Review Chart Review: Acceptable Risk for Surgery and Patient seen in Pre Admission Testing Consults Requested medical & cardiac (Courtney Bustamante @ [facility] (08/18) & Claudia Padgett (08/12)) Patient [place] [facility] [place] on 08/12[place]18 for preoperative evaluation. Per cardio, "patient is at an acceptable risk to proceed with upcoming surgery without any additional cardiovascular testing or intervention." Patient was seen by PCPs office on 09/01/18. Per note from this visit, "Patient is medically cleared for her left hip surgery." Teaching & Discussion Pre-Anesthesia Teaching/Discussion Notes: Instructed NPO after midnight before surgery, except medications with 15 cc of water. Medication instructions provided according to the PAT guidelines. History Surgery Operation Date: 09/08/18 09:45 Proposed Procedures p Left Posterior Total Hip Arthroplasty - Mendoza [place], Height/Weight Height: 5 ft 2 in Weight: 101.9 kg Allergies Allergy/AdvReac Type Severity Reaction Status Date / Time lisinopril AdvReac Unknown COUGH Verified 08/23/18 14:53 tramadol [From Ultram] AdvReac NIGHTMARES Verified 08/23/18 14:53 Medications Home Medications Medication Instructions Recorded Confirmed Last Taken acetaminophen [Acetaminophen Extra 1,000 mg PO QID PRN 08/19/18 08/23/18 Unknown Strength] alendronate 70 mg PO WK 08/19/18 08/23/18 Unknown celecoxib [Celebrex] 200 mg PO BID 08/19/18 08/23/18 Unknown cholecalciferol (vitamin D3) 1,000 unit PO QAM 08/19/18 08/23/18 Unknown [Vitamin D3] levothyroxine 137 mcg PO QAM 08/19/18 08/23/18 Unknown metoprolol succinate 50 mg PO QPM 08/19/18 08/23/18 Unknown metoprolol succinate 100 mg PO QAM 08/19/18 08/23/18 Unknown [id number] acid-vit K 1 cap PO QAM 08/19/18 08/23/18 Unknown [Multi For Her 50 Plus] psyllium husk [Metamucil] 0.4 g PO DAILY PRN 08/19/18 08/23/18 Unknown simvastatin 10 mg PO QAM 08/19/18 08/23/18 Unknown venlafaxine 75 mg PO QAM 08/23/18 08/23/18 Unknown Past Medical History Medical History Depression Heart palpitations PVC High cholesterol History of renal stone Hx of diabetes mellitus WAS ON MEDS - THEN REMOVED - MONITORING A1C Hypothyroid Osteoarthritis Osteoporosis Sleep apnea USES CPAP Exercise / Class Metabolic Activity III < 4 Walking/Shop/Light housework (Limited due to hip pain. Able to climb FOS slowly. Denies CP. Occasionally gets GARLAND going up FOS. ) Past Surgical History Surgical History History of total right knee replacement (TKR) Hx of breast biopsy LEFT Hx of shoulder replacement LEFT Past Anesthesia History No Hx of Anesthesia Complications (Was aware of what was going on during knee replacement during one point. ) and No Family Hx of Anesthesia Complications History of PONV No Hx of PONV and No Hx of Motion Sickness Social History Smoking Status: Never smoker Do You Dip or Chew Tobacco: No Hx Alcohol Use: No Hx Substance Use: No Review of Systems Patient denies chest pain, shortness of breath, reflux, cough, wheezing, palpitations. +GARLAND (occasionally when climbing FOS) +Joint Pain (Hip, left knee) +Palpitati ons (from PVCs) Physical Exam Vital Signs BP: 114/80 P: 80 R: 20 T: 98.0 SPO2: 98% on RA Constitutional + morbidly obese ENMT Thyromental Distance: < 3.5 Finger Breadths (3) Mallampati Class: III Neck normal visual inspection and + thick neck; neck extension not limited Respiratory normal respiratory effort Auscultation: lungs clear to auscultation bilaterally Cardiovascular Rate/Rhythm: regular rate and regular rhythm Heart Sounds: no murmur Vessels: no carotid bruit Neurologic moves all extremities Psychiatric Orientation: alert and oriented x 3 Testing Laboratory Results Laboratory Tests 08/23/18 08/23/18 14:11 14:11 WBC 8.02 Hgb 15.8 Hct 45.5 Plt Count 230 Sodium 140 Potassium 3.9 Chloride 104 Carbon Dioxide 29 BUN 13 Creatinine 0.72 Glucose 102 H U/A Negative 08/26/18 08/26/18 12:14 12:14 PT 10.4 INR 1.0 APTT 24.9 Blood Type O Positive Antibody Screen NEGATIVE [facility] 08/19/18 HgBA1C: 6.1% Electrocardiogram Date: 08/23/18 Findings: + NSR @ (72) and + no change from (01/03/17) Chest X-Ray Date: 08/23/18 Findings: + NAD FINDINGS: Left shoulder arthroplasty is incidentally noted. There is no pneumothorax or pleural effusion. There is no consolidation to suggest pneumonia. Cardiomediastinal silhouette is stable. Appearance of the chest is unchanged. IMPRESSION: No acute cardiopulmonary findings. No change in appearance of the chest. Stress Test Date: 12/11/17 Type: DSE Findings: + WNL Resting EF: 71% Resting LV Function: normal Resting RWMA: + none Valvular Disease: no significant valvular disease Negative for dobutamine stress ECG and echo for myocardial ischemia at 85% MPHR. Other Testing Holter Monitor October 2017 Conclusions: 1. Normal sinus rhythm throughout 2. Rare premature ventricular contractions 3. Rare premature atrial complexes 4. Brief runs of an SVT numbering no more than 20 beats in length 5. No diary entries
--- NOTE | 2018-08-26 11:47 | PAT Medication Instructions ---
Medication Instructions Date of Service August 26, 2018 Home Medications acetaminophen [Acetaminophen Extra Strength] 1,000 mg PO QID NEEDED alendronate 70 mg PO WK celecoxib [Celebrex] 200 mg PO BID cholecalciferol (vitamin D3) 1,000 unit PO QAM levothyroxine 137 mcg PO QAM metoprolol succinate 50 mg PO QPM metoprolol succinate 100 mg PO QAM [id number] acid-vit K [Multi For Her 50 Plus] 1 cap PO QAM psyllium husk [Metamucil] 0.4 g PO DAILY NEEDED simvastatin 10 mg PO QAM venlafaxine 75 mg PO QAM Continue as directed alendronate 70 mg PO WK ASK your surgeon for instructions celecoxib [Celebrex] 200 mg PO BID - STOP 7 DAYS BEFORE SURGERY DO NOT take the morning of surgery cholecalciferol (vitamin D3) 1,000 unit PO QAM [id number] acid-vit K [Multi For Her 50 Plus] 1 cap PO QAM psyllium husk [Metamucil] 0.4 g PO DAILY NEEDED Take morning of surgery With a small sip of water, OTHERWISE NOTHING TO EAT OR DRINK AFTER MIDNIGHT: acetaminophen [Acetaminophen Extra Strength] 1,000 mg PO QID NEEDED levothyroxine 137 mcg PO QAM metoprolol succinate 100 mg PO QAM simvastatin 10 mg PO QAM venlafaxine 75 mg PO QAM Take evening before surgery acetaminophen [Acetaminophen Extra Strength] 1,000 mg PO QID NEEDED metoprolol succinate 50 mg PO QPM Other Notes If you have any questions please call us at [phone] or [phone] or [phone] or [phone]
[2018-08-26 13:38] LABS: Partial Thromboplastin Ratio 0.9; Partial Thromboplastin Time 24.9 Seconds (21.0-31.0); Prothrombin Time 10.4 Seconds (9.0-12.0)
--- NOTE | 2018-09-06 17:07 | History & Physical Report ---
Date of Service September 06, 2018 Assessment & Plan (1) Degenerative joint disease of left hip: I have indicated the patient for left total hip replacement. The risks, benefits and complications of surgery were explained to the patient which include but not limited to infection, acute blood loss, DVT/PE, injury to nerves, vessels, bone, soft tissue, arthrofibrosis, chronic pain, failure of the prosthesis, hip dislocation, leg length discrepancy, need for additional surgery, cardiac and pulmonary events and . The patient wished to proceed with surgery and informed consent was obtained at this time. We will plan for ASA BID post-operatively for DVT prophylaxis. Upon discharge the patient will be discharged home with home health services. Appropriate clearances by PCP and cardio were obtained. History of Present Illness Chief Complaint: .Left hip pain/DJD Primary Care Provider: SUSAN Allred The patient is a 72 year old female who presents with complaints of severe left hip pain and DJD. The patient has failed outpatient conservative treatments to this point which included NSAIDs, corticosteroid injection, PT/HEP. The patient's pain and limited function have progressed to the point where they severely hinder their activities of daily living and they no longer tolerate exercise programs. They are requesting to proceed with total hip replacement surgery. Allergies Allergy/AdvReac Type Severity Reaction Status Date / Time lisinopril AdvReac Unknown COUGH Verified 09/08/18 08:37 tramadol [From Ultram] AdvReac NIGHTMARES Verified 09/08/18 08:37 Home Medications Home Medications Medication Instructions Recorded Confirmed Type acetaminophen [Acetaminophen Extra 1,000 mg PO QID PRN 08/19/18 09/08/18 History Strength] alendronate 70 mg PO WK 08/19/18 09/08/18 History celecoxib [Celebrex] 200 mg PO BID 08/19/18 09/08/18 History cholecalciferol (vitamin D3) 1,000 unit PO QAM 08/19/18 09/08/18 History [Vitamin D3] levothyroxine 137 mcg PO QAM 08/19/18 09/08/18 History metoprolol succinate 50 mg PO QPM 08/19/18 09/08/18 History metoprolol succinate 100 mg PO QAM 08/19/18 09/08/18 History nbmrsrjf-cay-rnfbr acid-vit K 1 cap PO QAM 08/19/18 09/08/18 History [Multi For Her 50 Plus] psyllium husk [Metamucil] 0.4 g PO DAILY PRN 08/19/18 09/08/18 History simvastatin 10 mg PO QAM 08/19/18 09/08/18 History venlafaxine 75 mg PO QAM 08/23/18 08/23/18 History Past Med/Surg History Medical History Depression Heart palpitations PVC High cholesterol History of renal stone Hx of diabetes mellitus WAS ON MEDS - THEN REMOVED - MONITORING A1C Hypothyroid Osteoarthritis Osteoporosis Sleep apnea USES CPAP Surgical History History of total right knee replacement (TKR) Hx of breast biopsy LEFT Hx of shoulder replacement LEFT Family History Grandmother (Maternal) Family history of diabetes mellitus Social History Preferred Language: Turkish Communication Ability: Effective Beliefs That Will Affect Care: None Current Living Situation: Spouse Other Information That Helps Us Care for You: No Feels Safe at Home: Yes Safety Concerns: Feels Safe At This Time Smoking Status: Never smoker Do You Dip or Chew Tobacco: No Second Hand Exposure: No Hx Alcohol Use: No Hx Substance Use: No Review of Systems Review of Systems: All systems reviewed & are unremarkable except as noted in HPI & below Constitutional: as per Subjective / HPI Physical Exam Physical Exam: LLE NVSI +EHL/FHL/TA/GS SILT grossly, +2 DP pulse, compartments soft NT, limited painful ROM, antalgic gait. Constitutional: WD/WN, vitals as above Eyes: PERRL, conjunctivae normal, anicteric sclerae ENMT: external ear and nose normal, oropharynx normal Neck: trachea midline, no thyromegaly Respiratory: normal respiratory effort, lungs clear to auscultation Cardiovascular: RRR, no murmur, no edema Gastrointestinal (Abdomen): normal bowel sounds, soft, nontender, no hepatosplenomegaly Musculoskeletal: no cyanosis or clubbing, extremities motor strength 5/5 Skin: no rashes, warm and dry Neurologic: patellar DTR's 2+ bilat, sensation intact Psychiatric: A+Ox3, euthymic affect Lymphatic: no cervical or axillary lymphadenopathy Results & Data Diagnostic Findings Multiple views of the hip demonstrates severe DJD with complete loss of the joint space. +osteophytes, +sclerosis, +subchondral cysts.
[~2018-09-08 08:02] MED LIST changes: -ACET-24 PO; +ACETAMINOPHEN 500 MG TAB PO SCH; -ALEN70TA2 PO; -ASPEC81 PO; -ATEN50TA8 PO; +BUPIVACAINE 0.5 % 5 MG/1 ML PF 10ML VIAL ONE; +CEFAZOLIN 2000MG 2,000 MG/15 ML SYR IV SCH; -CHOL1CAP67 PO; +CeleBREX 200 MG CAP PO SCH; +FAMOTIDINE 20 MG TAB PO SCH; -FEXO1TAB49 PO; -FLUT0.15 INTNAS; +GABAPENTIN 300 MG PO SCH; -GLCSR/500 PO; +LR 500ML BOLUS, THEN 15ML/HR IV SCH; +MIDAZOLAM HCL 1 MG/ML 2ML VIAL ONE; -MULT-506 PO; -PSYL48.59 PO; +ROPIVACAINE 0.5% HCL/PF 150 MG, BUPIVACAINE 0.5% MPF 30 ML, EPINEPHrine 30MG/30ML (OR U... INFIL SCH; -SYN137 PO; +TRANEXAMIC ACID 1,000 MG **IV Intra-op IV SCH; +TRANEXAMIC ACID 1,000 MG **IV Pre-op IV SCH; -ULT50X PO; -VENL-273 PO; -ZCR10 PO; +dexAMETHasone 4 MG TAB PO SCH; +fentaNYL citrate 100 MCG/2 ML VIAL ONE
[2018-09-08] MEDS ORDERED: BACITRACIN INJ 50,000 UNIT VIAL ONE (08:07)
[2018-09-08] MEDS ORDERED: ORTHO JOINT ANESTHETIC ONE (08:07)
[2018-09-08] MEDS ORDERED: POVIDONE-IODINE OP SOLN 30 ML BTL ONE (08:07)
[2018-09-08] MEDS ORDERED: ePHEDrine sulfate 50 MG/ML AMP IV PRN (09:28)
[2018-09-08] MEDS ORDERED: ATROPINE SULFATE 0.1 MG/ML 10ML SYR IV PRN (09:28)
[2018-09-08] MEDS ORDERED: HYDROmorphone INJ 1 MG/ML SYRINGE IV PRN (09:28)
[2018-09-08] MEDS ORDERED: ONDANSETRON INJ 2 MG/ML 2 ML VIAL ONE (09:34)
[2018-09-08] MEDS ORDERED: LIDOCAINE HCL 2% 2 ML VIAL/AMP(20MG/ML) INFIL ONE (09:34)
[2018-09-08] MEDS ORDERED: PROPOFOL IV EMULSION 10 MG/ML 20 ML VIAL IV ONE (09:34)
--- NOTE | 2018-09-08 10:16 | History & Physical Bridge Note ---
Date of Service September 08, 2018 History & Physical Bridge Note I have examined the patient, reviewed the History & Physical and in the interval since the performance of the History & Physical I have noted the following changes of clinical significance: no changes noted
[2018-09-08] MEDS ORDERED: PHENYLEPHRINE 100MCG/ML 5ML SYR ONE (11:13)
[2018-09-08] MEDS ORDERED: ePHEDrine sulfate 50 MG/ML SYR ONE (11:13)
[2018-09-08] MEDS ORDERED: PHENYLEPHRINE HCL 10 MG/ML VIAL ONE (11:13)
--- NOTE | 2018-09-08 12:18 | Post Operative Brief Note ---
Immediate Post Op Note v1 Date of Surgery September 08, 2018 Pre & Post Diagnosis Operation Date: 09/08/18 10:10 Pre-Op Diagnosis: Left Hip Degenerative joint disease Post-Op Diagnosis: Left Hip Degenerative joint disease Procedure Operation Date: 09/08/18 10:10 Actual Procedures p Left Total Hip Arthroplasty, uncemented, posterior approach(Left) - Mendoza Calhoun DO Surgeon Mendoza Calhoun DO Business Continuity Management Director Vignesh Graham Estimated Blood Loss 275 Findings Consistent with Post-Op Diagnosis Fluids 1300 cc LR Specimens femoral head Anesthesia Type Spinal MAC Complications none Disposition Disposition: Recovery Room Overlapping Procedure I was present for: the critical portions of procedure. I was immediately available: during the entire case. Back up surgeon: was not required during procedure.
--- NOTE | 2018-09-08 12:54 | Operative Report ---
Post Operative Report Pre & Post Diagnosis Operation Date: 09/08/18 10:10 Pre-Op Diagnosis: Left Hip Degenerative joint disease Post-Op Diagnosis: Left Hip Degenerative joint disease Procedure Operation Date: 09/08/18 10:10 Actual Procedures p Left Total Hip Arthroplasty, uncemented, posterior approach(Left) - Mendoza Calhoun DO Surgeon Mendoza Calhoun DO Demi Chef Vignesh Graham Estimated Blood Loss 275 Findings Consistent with Post-Op Diagnosis Specimens femoral head Anesthesia Type Spinal MAC Complications none Disposition Disposition: Recovery Room Indications The patient is a 72-year-old femur who presents with severe progressive left hip DJD who has failed outpatient conservative treatments. I indicated the patient for a total hip replacement and the risks and benefits were explained in detail which included but not limited to infection, bleeding, blood clot, damage to surrounding bone, nerves, vessels, soft tissue, hip dislocation, failure of the prosthesis, leg length discrepancy, need for additional surgery and . The patient agreed to proceed with replacement of the hip and informed consent was obtained. Appropriate clearances were obtained. Description of Procedure COMPONENTS USED: Evaristo ML taper hip system: Acetabulum size 48, femur size 7.5 std offset, femoral head 32-3.5, liner 4832, acetabular screw 30 mm x 1. Following induction of adequate spinal anesthesia, the patient was transferred to the OR table and placed in lateral decubitus position with right hip down. The left hip was prepped and draped in the typical sterile fashion. A timeout was performed, patient identified and site mich confirmed. Appropriate antibiotics were given. A standard posterolateral/Teresita-Langenbeck incision was made. Subcutaneous tissue was sharply dissected. Electrocautery was utilized for hemostasis. The fascia was incised throughout the length of the wound and retracted with the Charnley retractor. The bursa was taken down and the short external rotators were identified. The piriformis was tagged with #1 Vicryl. The short external rotators and capsule were divided from the posterior aspect of the femur using electrocautery. The posterior capsule was tagged with #1 Vicryl. Both external rotators and posterior capsule were swept posterior and protected, along with protecting the sciatic nerve. The hip was dislocated by flexion and internally rotation in a controlled manner and exposure of the femoral neck was gained with an old-style Hohmann and a blunt cobra retractor. A femoral cutting guide was utilized for making the appropriate level femoral neck cut with reciprocating saw. The femoral head was removed, measured and reserved on the back table. Next, attention was turned to the acetabulum. A posterior and anterior offset retractor was placed to gain adequate exposure. Acetabular labrum as well as posterior capsule elements were removed using electrocautery and forceps. Fovea centralis was cleared of all soft tissue. Sequential reaming was performed starting at 43 mm and carried up to a 47 mm and decision was made to proceed with impaction of a 48 mm trabecular metal cup. This was impacted and held using a single 30 mm bone screw. The trial acetabular liner was placed at this time. Next, attention was turned to the proximal femur where a Bovie and pickup was used to further clear short external rotators from their insertion on the femur. Box osteotome and canal finder was used to gain access to the femoral canal and the lateral reamer on power was used to further open the proximal lateral canal. Sequentially rasping was carried up to a 7.5 which gave good fit and fill of the proximal femur. A trial reduction was carried out with a standard offset femoral neck component a 32-3 point mm femoral head. The trial reduction was stable in all degrees of rotation with no [id number] impingement. The hip was dislocated, trial components were removed and access to the acetabulum was re-established. The trial liner was removed and the cup was irrigated to ensure all debris was removed. The final acetabular liner was inserted and properly seated in the cup. Access to the femur was once more gained and the size 7.5 femoral stem with standard offset was impacted into position. The hip was once more assessed with the 32-3.5 mm femoral head. Stability was accessed and found to be excelle nt with equal leg lengths. The hip was dislocated for the last time and the final 32-3.5 ceramic femoral head was impacted in place and the hip was reduced. Range of motion was checked once again and found to be stable. A Betadine soak was performed. After 3 minutes, the hip was once more irrigated with copious sterile saline solution with bacitracin. The calos-incisional soft tissue was injected utilizing [place] ortho mix which includes a combination of Ropivicaine 0.5% 150mg, Bupivicaine 0.5%/Epinephrine 1:200,000 30ml, Toradol 30mg, Dexamethasone 4mg, Ketamine 10mg, Clonidine 100mcg and NSS 30ml Orthomix solution. The piriformis, external rotators and capsule were repaired to the greater trochanter through bone tunnels using #5 FiberWire. The fascia was closed using #1 Vicryl, subcutaneous tissue was closed using 2-0 Vicryl, and skin was closed with simeon. Sterile dressings were applied which included prevena incisional vac. The patient tolerated the procedure well and was transported to PACU in stable condition. Due to the complex nature of the procedure, the entire surgery was performed with the operational assistance of Vignesh Graham PA-C. The occupational therapy assistant, under direct supervision, was involved in the actual performance of all aspects of the surgical procedure including patient positioning, hemostasis, tissue retraction, instrument management and wound closure. I attest to the content of the Intraoperative Record and any orders documented therein. Any exceptions are noted below.
--- NOTE | 2018-09-08 13:12 | XRay Report ---
SINGLE VIEW PELVIS; SINGLE VIEW LEFT HIP CLINICAL HISTORY: Postoperative examination. FINDINGS: An AP portable view of the hips and pelvis with a crosstable lateral portable view of the l eft hip are obtained. A bipolar left hip arthroplasty is in near-anatomic alignment. A single cortica l lag screw transfixes the acetabular cup. No acute fracture is identified. There are expected postop erative changes overlying the left hip including skin clips, subcutaneous gas, a surgical drain, and soft tissue swelling. Small phlebolith are noted in the pelvis. Mild to moderate arthritic change is seen in the right hip. IMPRESSION: Expected postoperative findings status post left hip arthroplasty. No acute fracture is s een. Electronically signed by: Avery Bailon M.D. 09/08/2018 1:11 PM
--- NOTE | 2018-09-08 13:18 | Anesthesiology Progress Note ---
Date of Service September 08, 2018 Anesthesia Post Procedure Vital Signs Vital Signs: Temp Pulse Pulse Resp BP BP Pulse Ox 09/08/18 13:05 82 15 103/67 91 09/08/18 12:55 85 17 104/61 99 09/08/18 12:45 36.9 C 87 20 95/61 L 100 09/08/18 08:48 36.5 C 80 20 142/80 H 95 Pain Intensity Left Hip: Pain Intensity: 4 Transfer of Care Handoff Completed per policy Notes Mental Status: alert / awake / arousable Patient Amnestic to Procedure: Yes Nausea / Vomiting: adequately controlled Pain: adequately controlled Airway Patency, RR, SpO2: stable & adequate BP & HR: stable & adequate Hydration State: stable & adequate Anesthetic Complications: no major complications apparent and Pt Satisfied with anesthetic care
[2018-09-08] MEDS ORDERED: OXYCODONE HCL IR 5 MG TAB (IMMEDIATE RELEASE) PO PRN (13:25)
[2018-09-08] MEDS ORDERED: BISACODYL 10 MG SUPP PR PRN (13:25)
[2018-09-08] MEDS ORDERED: MAGNESIUM HYDROXIDE SUSP 30 ML UDC PO PRN (13:25)
[2018-09-08] MEDS ORDERED: METOCLOPRAMIDE HCL INJ 5 MG/ML 2 ML VIAL IV PRN (13:25)
[2018-09-08] MEDS ORDERED: ONDANSETRON INJ 2 MG/ML 2 ML VIAL IV PRN (13:25)
[2018-09-08] MEDS ORDERED: HYDROmorphone INJ 0.5 MG/0.5 ML SYR IV PRN (13:25)
[2018-09-08] MEDS ORDERED: NALOXONE HCL 0.4 MG/1 ML VIAL/CARP IV PRN (13:25)
[2018-09-08] MEDS: SODIUM CHLORIDE 0.9% 1000ML 1,000 ML IV SCH (14:18)
[2018-09-08] MEDS: KETOROLAC TROMETHAMINE 15 MG/ML VIAL IV SCH ×2 (14:19→20:37)
[2018-09-08] MEDS: ACETAMINOPHEN 500 MG TAB PO SCH (15:42)
[2018-09-08] MEDS: CEFAZOLIN 2000MG 2,000 MG/15 ML SYR IV SCH (17:37)
--- NOTE | 2018-09-08 19:12 | Orthopedic Progress Note ---
Date of Service September 08, 2018 Assessment & Plan (1) Degenerative joint disease of left hip: s/p left SHAE -ancef x 24 -DVT ppx: SCDs, TEDs, ASA BID -WBAT LLE -Posterior hip precautions -PT/OT -am labs -PO XR demonstrates well aligned well fixed prosthesis -DC planning Subjective Post Operative Progress Note Patient seen sitting up in bed, comfortable, denies complaints, pain well controlled, no acute issues. Still feeling effects of spinal/local anesthesia Review of Systems Review of Systems: All systems reviewed & are unremarkable except as noted in HPI & below Constitutional: as per Subjective / HPI Physical Exam Physical Exam: LLE PE limited secondary to spinal/local anesthesia, + 2 DP pulse, compartments soft NT, dressing CDI Constitutional: WD/WN, vitals as above Results & Data Vital Signs (Past 12 Hours) Vital Signs Temp Pulse Pulse Pulse Resp BP BP 09/08/18 19:03 36.5 C 91 H 18 109/70 09/08/18 16:24 36.4 C L 86 17 111/71 09/08/18 15:46 87 109/73 09/08/18 15:28 36.4 C L 89 16 93/61 L 09/08/18 14:26 36.5 C 88 20 121/79 09/08/18 13:55 36.5 C 82 20 96/60 L 09/08/18 13:30 37.0 C 78 16 100/68 09/08/18 13:15 36.7 C 78 24 110/72 09/08/18 13:05 82 15 103/67 09/08/18 12:55 85 17 104/61 09/08/18 12:45 36.9 C 87 20 95/61 L 09/08/18 08:48 36.5 C 80 20 142/80 H Pulse Ox 09/08/18 19:03 95 09/08/18 16:24 96 09/08/18 15:46 09/08/18 15:28 95 09/08/18 14:26 96 09/08/18 13:55 98 09/08/18 13:30 96 09/08/18 13:15 95 09/08/18 13:05 91 09/08/18 12:55 99 09/08/18 12:45 100 09/08/18 08:48 95
[2018-09-08] MEDS: DOCUSATE SODIUM 100 MG CAP PO SCH (20:35)
[2018-09-08] MEDS ORDERED: SENNA 8.6 MG TAB PO SCH (21:00)
[2018-09-08] MEDS ORDERED: METOPROLOL SUCC 50MG EXT REL TAB PO SCH (21:00)
[2018-09-09] MEDS: SODIUM CHLORIDE 0.9% 1000ML 1,000 ML IV SCH (00:31)
[2018-09-09] MEDS: ACETAMINOPHEN 500 MG TAB PO SCH ×2 (00:37→07:15)
[2018-09-09] MEDS: KETOROLAC TROMETHAMINE 15 MG/ML VIAL IV SCH ×2 (02:18→07:15)
[2018-09-09] MEDS: CEFAZOLIN 2000MG 2,000 MG/15 ML SYR IV SCH (02:18)
[2018-09-09 06:02] LABS: Hematocrit (blood only) 34.9 % (37-47); Hemoglobin 11.8 g/dL (12.0-16.0); Immature Granulocytes # (auto) 0.03 K/uL (0.00-0.02); Immature Granulocytes % (auto) 0.2 %; Lymphocytes # (auto) 1.18 K/uL (1.2-3.4); Lymphocytes % (auto) 7.6 %; Mean Corpuscular Hgb Conc 33.8 g/dL (32-36); Mean Corpuscular Volume 93.1 fL (80-100); Mean Platelet Volume 9.2 fL (7.4-10.4); Monocytes # (auto) 1.23 K/uL (0.11-0.59); Monocytes % (auto) 7.9 %; Neutrophils # (auto) 13.09 K/uL (1.4-6.5); Neutrophils % (auto) 84.3 %; Platelet Count 207 K/uL (130-400); RDW Standard Deviation 47.9 fL (36.4-46.3); Red Blood Count 3.75 M/uL (4.2-5.4); White Blood Count 15.53 K/uL (4.8-10.8)
[2018-09-09] MEDS ORDERED: LEVOTHYROXINE SODIUM 137 MCG TABLET PO SCH (06:30)
[2018-09-09 06:33] LABS: BUN Creatinine Ratio 18.6 (10-20); Calcium 8.3 mg/dl (8.5-10.1); Creatinine Clr Calc Pharmacy 71.1 ml/min; Est GFR (Non-African American) 72.5; Potassium 4.1 mmol/L (3.5-5.1)
[2018-09-09] MEDS: DOCUSATE SODIUM 100 MG CAP PO SCH (08:41)
[2018-09-09] MEDS ORDERED: MULTIVITAMIN TAB PO SCH (09:00)
[2018-09-09] MEDS ORDERED: ASPIRIN 325 MG ECTAB PO SCH (09:00)
[2018-09-09] MEDS ORDERED: METOPROLOL SUCC 50MG EXT REL TAB PO SCH (09:00)
[2018-09-09] MEDS ORDERED: SIMVASTATIN 10 MG TAB PO SCH (09:00)
--- NOTE | 2018-09-09 10:15 | Orthopedic Progress Note ---
Date of Service September 09, 2018 Assessment & Plan (1) Degenerative joint disease of left hip: s/p left SHAE -ancef x 24 -DVT ppx: SCDs, TEDs, ASA BID -WBAT LLE -Posterior hip precautions -PT/OT -am labs - hgb 11.8 -PO XR demonstrates well aligned well fixed prosthesis -DC planning home with home HH today Subjective Post Operative Progress Note Patient seen sitting in chair at bedside, comfortable, denies complaints, pain well controlled, no acute issues. Review of Systems Review of Systems: All systems reviewed & are unremarkable except as noted in HPI & below Constitutional: as per Subjective / HPI Physical Exam Physical Exam: LLE NVSI +EHL/FHL/TA/GS SILT grossly, +2 DP pulse, compartments soft NT, dressing cdi. Foot drop left lower extremity paresthesia resolved. Constitutional: WD/WN, vitals as above Results & Data Vital Signs (Past 12 Hours) Vital Signs Temp Pulse Pulse Resp BP Pulse Ox 09/09/18 07:45 36.9 C 78 17 118/62 94 09/09/18 03:10 37.0 C 71 16 101/61 95 09/08/18 23:12 36.9 C 91 H 15 104/58 L 92
--- NOTE | 2018-09-10 15:02 | Discharge Summary ---
Date of Service September 10, 2018 Admission HPI Per Admitting Provider The patient is a 72 year old female who presents with complaints of severe left hip pain and DJD. The patient has failed outpatient conservative treatments to this point which included NSAIDs, corticosteroid injection, PT/HEP. The patient's pain and limited function have progressed to the point where they severely hinder their activities of daily living and they no longer tolerate exercise programs. They are requesting to proceed with total hip replacement surgery. Principal Diagnosis Left total hip replacement Discharge Exam LLE NVSI +EHL/FHL/TA/GS SILT grossly, +2 DP pulse, compartments soft NT, dressing cdi. Constitutional WD/WN, vitals as above Eyes PERRL, conjunctivae normal, anicteric sclerae ENMT external ear and nose normal, oropharynx normal Neck trachea midline, no thyromegaly Respiratory normal respiratory effort, lungs clear to auscultation Cardiovascular RRR, no murmur, no edema Gastrointestinal (Abdomen) normal bowel sounds, soft, nontender, no hepatosplenomegaly Musculoskeletal no cyanosis or clubbing, extremities motor strength 5/5 Skin no rashes, warm and dry Neurologic patellar DTR's 2+ bilat, sensation intact Psychiatric A+Ox3, euthymic affect Lymphatic no cervical or axillary lymphadenopathy Discharge Data Allergies Allergy/AdvReac Type Severity Reaction Status Date / Time lisinopril AdvReac Unknown COUGH Verified 09/08/18 08:37 tramadol [From Ultram] AdvReac NIGHTMARES Verified 09/08/18 08:37 Consultations 09/09/18 08:00 Consult Case Management - Discharge Planning Routine Procedures Performed Operation Date: 09/08/18 10:10 Actual Procedures p Left Total Hip Arthroplasty, uncemented, posterior approach(Left) - Mendoza Calhoun DO [facility] Course (1) Degenerative joint disease of left hip: The patient is a 72 -year-old female who presents with long standing history of severe left hip DJD and failed outpatient conservative treatments including NSAIDs, bracing, injections and home walking/exercise program. The patient's symptoms have progressed to the point where it has been difficult to perform even normal activities of daily living. I indicated the patient for a left total hip arthroplasty, the risks, benefits and complications of the procedure include but not limited to infection, bleeding, damage to bone, nerves, vessels, surrounding soft tissue, may develop blood clots, loss of function, leg length discrepancy, dislocation, failure of the components, loosening of the components, the need for additional surgery and . The patient wished to proceed with surgery at this time and informed consent was obtained. Hospital Course: On 09/08/18 the patient was taken to the operating room, adequate anesthesia administered and underwent a left total hip arthroplasty. The patient tolerated the procedure well and was taken to the PACU in stable condition. Post- operatively the patient was started on a DVT ppx medication and given appropriate IV antibiotics. Consults were placed to physical therapy, occupational therapy and case management. On POD#1, the patient did well overnight and their pain was well controlled. Labs were drawn and the Hgb was 11.8. The patient progressed well with PT. Dressings were changed at this time and the incision was clean, dry and intact. The patients hospital stay was relatively uneventful and they were deemed stable by the orthopedic team and consultants to be discharged home with HH on 09/09/18. Discharge Instructions: Upon discharge the patient may weight bear as tolerates through their operative extremity. They were instructed to keep the incision clean and dry at all times. The patient may shower but should not submerge the incision, avoid bathing, pools and hot tubes. The patient was given a script for pain medication and should take as instructed. The patient was given a script for DVT ppx 325mg ASA BID and should take as directed. The patient was instructed to not drive or travel for long distances until cleared to do so. If the patient develops any symptoms of fevers, chills, nausea, vomiting, increased redness, swelling, pain or drainage from the surgical site, they should notify the office and/or proceed to the nearest emergency room. The patient should follow up in 10-14 days after surgery for their routine post-operative follow-up appointment and should call the office to confirm the date and time. s/p left SHAE POD#1 -ancef x 24 -DVT ppx: SCDs, TEDs, ASA BID -WBAT LLE -Posterior hip precautions -PT/OT -am labs - hgb 11.8 -PO XR demonstrates well aligned well fixed prosthesis -DC planning home with home HH today Total Time Total Time Spent Total Time Spent (In Minutes): >60 minutes Total Time Includes: Examination of the Patient, Discharge Planning, Medication Reconciliation and Communication With Other Providers Discharge Plan Discharge Items Patient Disposition: Home - Home Health Services Reason For Visit: Left Hip Osteoarthritis Discharge Diagnosis: Left total hip replacement Condition: Good Discharge Goals: Decrease discomfort, Improve function, Increase independence a nd Therapeutic intervention Activity: Per 'Additional Instructions' section Lifting: Wait until after follow-up appointment Bathing Comment: No bathing, pools or hot tubs. Sexual Activity: Wait until after follow-up appointment Exercise/Sports: Wait until after follow-up appointment Driving/Machine Use Comment: No driving till cleared by your surgeon Weightbearing: Left weightbearing Non-emergency contact: Primary Care Provider and Surgeon Call non-emergency contact if: you have any medication questions, your symptoms worsen, your pain is not controlled, your pain is worsening, your pain is unusual for you, your pain is concerning for you, you have a fever, your temperature is above 101, your wound has increased redness, your wound has increased drainage and your wound pain has increased Follow-up/Referrals: Rachel Bustamante CRNP [Primary Care Provider] - Diet: Regular Addtl Provider Instructions: ACTIVITY RECOMMENDATIONS: SELF CARE INSTRUCTIONS AFTER TOTAL HIP REPLACEMENT Until the incision and soft tissues around your hip have healed, there is a possibility that the hip prosthesis could dislocate. A. Observe the following precautions to prevent dislocation: 1. Don't bend your hip greater than 90 degrees. 2. Avoid crossing your legs or ankles while standing or lying. 3. Sit with your feet placed 6 inches apart. 4. When sitting, keep your knees below your hips. Sit on a firm surface, avoid deep, soft chairs and couches. Use an elevated toilet seat in the bathroom. 5. Don't bend over at the waist. Use a long handled shoehorn and a sock aid to help you put on your shoes and socks. A field staff can help you vegetable picker objects that are too high or too low to reach. 6. Keep car riding to a minimum for at least one month after surgery. B. Your balance may be shaky for a while. Use crutches or a walker until directed by your doctor. C. Use hand rails when walking on stairs. D. Wear low heeled shoes with non-slip soles. E. Be sure that your floors are free of things that could trip you - throw rugs, electrical cords, small objects. Avoid wet and waxed floors, especially with crutches and canes. F. Try to walk several times a day with rest periods between. G. Continue with all the exercises taught to you in the hospital. Again, make walking a part of your daily routine. SPECIAL CARE INSTRUCTIONS: VERY IMPORTANT TO READ AND REVIEW A. You may still be at risk for phlebitis and blood clots. 1. Wear surgical stockings (KATELYN hose) for 2 weeks after surgery to improve circulation and reduce swelling. 2. Take Aspirin 325mg twice daily for 4 weeks or as directed by your doctor. This is your blood thinner. 3. High risk patients may be prescribed a stronger blood thinner if necessary. 4. If you are on Coumadin normally, your family doctor/liaison planner should monitor your blood work. Expect a phone call the day of or the day after bloodwork is drawn to adjust your dosage. B. You must take antibiotics before having dental work, bladder, bowel and other surgery. Your doctor will provide you with a permanent card to carry describing precautions. C. Call [facility] if you have a fever, redness or swelling around the incision, cloudy drainage from incision, or sudden increase in pain in your hip, not relieved by your regular pain medication. D. Please call the office at if you have any concerns or questions about your operation or recovery. * YOU MAY SHOWER, NO TUB BATHS UNTIL CLEARED BY YOUR DOCTOR. * WEAR KATELYN HOSE 20 HOURS PER DAY FOR 2 WEEKS. * YOU SHOULD USE A WALKER OR CRUTCHES FOR 2-4 WEEKS. THIS WILL HELP PREVENT STRAIN ON YOUR HIP MUSCLE AND ALLOW IT TO HEAL PROPERLY. YOU MAY WEAN TO A CANE TOLERATED. * MOST PATIENTS WILL HAVE HOME NURSING FOR THERAPY. IF YOU DECIDE TO DO OUTPATIENT PHYSICAL THERAPY, PLEASE SCHEDULE THIS 3 TIMES PER WEEK. *PREVENA incisional vac is a special dressing covering your incision. This dressing provides a sterile dry environment while you are healing. The dressing is to be left in place for 7 days post-operatively. Your home nurse or surgeon will remove. If you develop any redness or blisters or have any questions notify your surgeon immediately. FOLLOW UP VISIT: If appointment is not already scheduled: Please call [facility] to make a follow-up appointment for 2 weeks after your surgery at . Prescriptions: New acetaminophen [Tylenol Extra Strength] 500 mg Tablet 1,000 mg PO Q8H PRN (Reason: pain) Qty: 90 RF: 0 aspirin 325 mg Tablet,Delayed Release (Dr/Ec) 325 mg PO BID 28 Days Qty: 56 RF: 0 oxycodone 5 mg Tablet 5 mg PO Q6H MDD 6 tabs PRN (Reason: pain) Qty: 30 RF: 0 sennosides [Senokot] 8.6 mg Tablet 17.2 mg PO HS PRN (Reason: constipation) Qty: 28 RF: 0 Continued celecoxib [Celebrex] 200 mg Capsule 200 mg PO BID RF: 0 levothyroxine 137 mcg Tablet 137 mcg PO QAM RF: 0 metoprolol succinate 50 mg Tablet Extended Release 24 Hr 50 mg PO QPM RF: 0 metoprolol succinate 50 mg Tablet Extended Release 24 Hr 100 mg PO QAM RF: 0 alendronate 70 mg Tablet 70 mg PO WK RF: 0 simvastatin 10 mg Tablet 10 mg PO QAM RF: 0 cholecalciferol (vitamin D3) [Vitamin D3] 1,000 unit Tablet 1,000 unit PO QAM RF: 0 Multi For Her 50 Plus 400-80 mcg Capsule 1 cap PO QAM RF: 0 psyllium husk [Metamucil] 0.4 gram Capsule 0.4 g PO DAILY PRN (Reason: Constipation) RF: 0 venlafaxine 75 mg capsule,extended release 24hr 75 mg PO QAM RF: 0 Discontinued acetaminophen [Acetaminophen Extra Strength] 500 mg Tablet 1,000 mg PO QID PRN (Reason: Pain) RF: 0 Stand-Alone Forms: [facility], [facility]/Other Patient Handouts: Replacement Hip After Hospital Discharge Orders: Discharge Order (Routine); Ordered 09/09/18 Ordered By: Mendoza Calhoun Admission Data Admit Date/Time: 09/08/18 12:51 Attending Provider: Mendoza Calhoun Admit Provider: Mendoza Calhoun Primary Care Provider: Rachel Bustamante Other Providers: Jake Toribio Service: Surgical Services Other Interventions: Discharge Summary Assessment (RN) Last Done: 09/09/18 10:18 DC Date/Time DO NOT enter until pt leaves facility: 09/09/18 14:31
== END 2018-09-09 14:31 | disposition home health service (06) | DRG 470 ==
LOC: ASU 08:02 → 3E 12:51
DX: M16.12 Unilateral primary osteoarthritis, left hip

== ENCOUNTER 2023-10-16 03:43 | Inpatient (IN) ==
--- NOTE | 2023-10-16 04:30 | Emergency Department Note ---
Impression & Plan Hypoxia, COVID, Weakness admit to the [facility] ED Provider Note NAME: DEAN CORTÉS AGE: 77 SEX: Female INFORMANT: Patient ED PROVIDER(S): Karen Pearl DO CHIEF COMPLAINT: Cough and shortness of breath PLAN: Disposition: admit to the [facility] MEDICAL DECISION MAKING: this is a 77-year-old female patient who presents to the emergency department with cough, shortness of breath and fever over the past 4 days. The patient became extremely weak today to the point that she needed assistance with ambulating. patient has been vaccinated and considers himself up-to-date. patient has persistent and unrelenting cough. Laboratory studies reveal white blood cell count of 11.8. Glucose of 132. Troponin was negative. H&H were stable. COVID was positive on the upper respiratory bio fire test. Lactate and procalcitonin were negative. O2 saturation was 86-87% on room air. The patient was placed on supplemental oxygen. Chest x-ray was unremarkable and revealed no areas of consolidation or opacities. Patient was given a dose of IV Decadron. The [facility] will evaluate for further inpatient care Triage Nursing notes: reviewed and agree With them. Vital Signs: reviewed and unremarkable Differential Diagnosis: COVID, sepsis, pneumonia, hyponatremia Diagnostics, independently interpreted by me: ECG: normal sinus rhythm at a rate of [address] segment elevation or signs of ischemia. There is no ectopy. Cardiac Monitoring: Normal sinus rhythm at 75 Imaging studies: portable chest x-ray-as per my independent interpretation HPI: 77 year old Female arrives for evaluation of shortness of breath, cough and fever. patient developed a sore throat and cough approximately four days ago. patient now is short of breath, extremely weak and has a fever. Tonight, she needed assistance up out of a chair and was having difficulty ambulating. PAST MEDICAL HISTORY: See Below, PAST SURGICAL HISTORY: See Below, SOCIAL HISTORY: See Below, HOME MEDICATIONS: See list ALLERGIES: see list VITALS: See Below PHYSICAL EXAMINATION: HEENT: Head - normocephalic and atraumatic. Pupils are equal, round, and reactive to light. Extraocular eye muscles are intact, and sclera are anicteric. Nose - moist nasal mucosa without discharge. Mouth - moist buccal mucosa. Oropharynx is nonerythematous and there is no tonsillar exudate or edema noted. Neck: Supple; No JVD or cervical lymphadenopathy Heart: Regular rate and rhythm. There is a normal S1 and S2 with no murmurs, clicks, or gallops appreciated. Lungs: Diminished breath sounds at both lung bases with rhonchi throughout. Abdomen: Soft, completely nontender, nondistended, with good bowel sounds. There are no palpable pulsatile masses or hepatosplenomegaly. There is no guarding, rigidity, or rebound noted. Extremities: No evidence of cyanosis, clubbing, or edema. There are easily palpable peripheral pulses. Skin: warm and dry with good turgor and no rashes. Emergency department course: The patient was evaluated in room B-8. A complete history and physical was performed. Patient was placed on supplemental oxygen. and septic protocol was performed. An order was placed for continuous cardiac monitoring. The patient was in a normal sinus rhythm at a rate of 75. A twelve-lead EKG was obtained as described above. Patient was given a dose of IV Decadron. Patient will be evaluated by the [facility] Hospitalist. Past Med/Surg History Problem List (Updated 10/16/23 @ 06:25 by Willem Thornton MD) Depression hx Rheumatoid arthritis Hypoxia COVID-19 virus infection Interstitial lung disease History of colon polyps Esophageal dysphagia Dyspnea on exertion Inflammatory arthritis Carpal tunnel syndrome, right Cervical radicular pain PVC (premature ventricular contraction) PSVT (paroxysmal supraventricular tachycardia) PAC (premature atrial contraction) Degenerative joint disease of left hip History of renal stone Right knee DJD High triglycerides (Chronic) PAC (premature atrial contraction) PVC's (premature ventricular contractions) Type 2 diabetes mellitus Hypertension pt denies Osteoarthritis Sleep apnea cpap Hypothyroid Osteoporosis Medical History Rheumatoid arthritis History of colon polyps History of anesthesia reaction History of kidney stones Heart palpitations PAC (premature atrial contraction) PVC's (premature ventricular contractions) Carpal tunnel syndrome on both sides Type 2 diabetes mellitus Hypertension Depression Osteoarthritis Sleep apnea Hypothyroid Osteoporosis Surgical History H/O left cataract extraction (04/2023) Hx of right cataract extraction (04/2023) History of esophagogastroduodenoscopy (EGD) History of colonoscopy History of cystoscopy History of total left hip arthroplasty Hx of breast biopsy Hx of shoulder replacement History of total right knee replacement (TKR) Family History Grandmother (Maternal) Diabetes Grandmother (Paternal) Diabetes Uncle Colorectal cancer Aunt Colorectal cancer Father COPD (chronic obstructive pulmonary disease) Smoker Mother Breast cancer Aunt Breast cancer Aunt Pancreatic cancer Other No family history of adverse response to anesthesia Denies family history of Ovarian cancer Prostate cancer Myocardial infarction Social History Smoking Status: Never smoker Second Hand Exposure: Yes (hx as child); Do You Dip or Chew Tobacco: No; Hx Alcohol Use: No Hx Substance Use: No Preferred Language: Swedish Communication Ability: Effective Visual Impairment: No Limitations Hearing Ability: Normal [employer] Estimator Required: No Beliefs That Will Affect Care: None marital status: Current Living Situation: Spouse 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 How many Children do You have: 3 Feels Safe at Home: Yes Childhood Exposure to Second-Hand Smoke: Yes Diet: regular caffeine: No during the past year weight has: remained stable Dental Care, Regularly: Yes Physical Activity Frequency: Daily Seatbelt Use: always Sunscreen Use: Yes Assistive Devices: Cane, CPAP and Glasses Allergies Allergies Allergy/AdvReac Type Severity Reaction Status Date / Time lisinopril Allergy Unknown COUGH Verified 07/07/23 09:54 bupropion [From Wellbutrin] AdvReac Unknown nightmares Verified 07/07/23 09:54 tramadol [From Ultram] AdvReac Unknown NIGHTMARES Verified 07/07/23 09:54 Home Meds Home Medications Medication Instructions Recorded Confirmed [id number] acid 1 cap PO QAM 08/19/18 10/16/23 400 mcg-vitamin K 80 mcg capsule (Multi For Her 50 Plus) psyllium husk 0.4 gram capsule 0.4 g PO UD PRN Constipation 08/19/18 10/16/23 (Metamucil) solifenacin 5 mg tablet (Vesicare) 5 mg PO QPM 10/07/19 10/16/23 cholecalciferol (vitamin D3) 25 1,000 unit PO QAM 08/06/22 10/16/23 mcg (1,000 unit) tablet (Vitamin D3) biotin 1 mg capsule 1 mg PO BID 10/16/23 10/16/23 magnesium citrate,mag oxide 250 mg 500 mg PO DIRECTED PRN 10/16/23 10/16/23 capsule Constipation Previous Rx's Medication Instructions Recorded acetaminophen 500 mg tablet 1,000 mg (2 x 500 mg) PO Q8H PRN 09/08/18 (Tylenol Extra Strength) pain #90 tabs hydroxychloroquine 200 mg tablet 200 mg PO BID #180 tabs 01/28/23 metoprolol succinate 50 mg 50 mg PO HS #90 tabs 02/24/23 tablet,extended release 24 hr albuterol sulfate 90 mcg/actuation 2 puff inhalation Q6H PRN 03/06/23 aerosol inhaler shortness of breath #8.5 grams diltiazem HCl 180 mg 180 mg PO QAM #90 caps 05/26/23 capsule,extended release 24 hr simvastatin 10 mg tablet 10 mg PO QPM #90 tabs 05/27/23 levothyroxine 137 mcg tablet 137 mcg PO DAILY #90 tabs 05/29/23 venlafaxine 75 mg capsule,extended 75 mg PO QAM #90 caps 07/11/23 release 24 hr metformin 500 mg tablet,extended 500 mg PO QAM #180 tabs 09/10/23 release 24 hr methylprednisolone 4 mg tablet 2 mg (1/2 x 4 mg) PO QAM #45 tabs 09/17/23 Results & Data (ED) Vital Signs Vital Signs - 24 hr 10/16/23 03:51 10/16/23 04:04 10/16/23 04:08 Temperature 37.3 C Temperature Source Oral Pulse Rate 76 73 75 Pulse Rate [Apical] Pulse Rhythm Regular Regular Pulse Rhythm [Apical] Pulse Strength [Apical] Respiratory Rate 20 24 Respiratory Effort / Characteristics SOB on Exertion Respiratory Depth Normal Respiratory Pattern Regular Blood Pressure 135/62 Blood Pressure [Right Arm] Blood Pressure Mean 86 Blood Pressure Mean [Right Arm] Blood Pressure Position [Right Arm] Pulse Oximetry 89 L 97 Oxygen Delivery Method Room Air Nasal Cannula Oxygen Flow Rate 2 Sepsis Recent Fever Within 48 Hours No Sepsis New/Unexplained Change in Mental Status N/A Sepsis Action Taken by Nursing No Action Required 10/16/23 04:23 10/16/23 04:38 10/16/23 05:00 Temperature Temperature Source Pulse Rate Pulse Rate [Apical] 73 71 68 Pulse Rhythm Pulse Rhythm [Apical] Regular Regular Regular Pulse Strength [Apical] Normal Normal Normal Respiratory Rate 20 20 20 Respiratory Effort / Characteristics Non-Labored Spontaneous Non-Labored Spontaneous Non-Labored Spontaneous Respiratory Depth Normal Normal Normal Respiratory Pattern Regular Regular Regular Blood Pressure Blood Pressure [Right Arm] 108/58 L 125/64 115/63 Blood Pressure Mean Blood Pressure Mean [Right Arm] 74 84 80 Blood Pressure Position [Right Arm] Lying Lying Lying Pulse Oximetry 96 95 94 Oxygen Delivery Method Nasal Cannula Nasal Cannula Nasal Cannula Oxygen Flow Rate 2 2 2 Sepsis Recent Fever Within 48 Hours Sepsis New/Unexplained Change in Mental Status Sepsis Action Taken by Nursing 10/16/23 06:00 Temperature Temperature Source Pulse Rate Pulse Rate [Apical] 68 Pulse Rhythm Pulse Rhythm [Apical] Regular Pulse Strength [Apical] Normal Respiratory Rate 28 H Respiratory Effort / Characteristics Non-Labored Spontaneous Respiratory Depth Normal Respiratory Pattern Regular Blood Pressure Blood Pressure [Right Arm] 134/78 Blood Pressure Mean Blood Pressure Mean [Right Arm] 96 Blood Pressure Position [Right Arm] Lying Pulse Oximetry 94 Oxygen Delivery Method Nasal Cannula Oxygen Flow Rate 2 Sepsis Recent Fever Within 48 Hours Sepsis New/Unexplained Change in Mental Status Sepsis Action Taken by Nursing Laboratory Data 10/16/23 04:00 10/16/23 04:00 Lab Results 10/16/23 10/16/23 10/16/23 Range/Units 03:50 04:00 04:30 WBC 11.81 H (4.8-10.8) K/ul RBC 4.37 (4.20-5.40) M/uL Hgb 13.6 (12.0-16.0) g/dl Hct 41.1 (37.0-47.0) % MCV 94.1 (80.0-100.0) fL MCH 31.1 (25.0-34.0) pg MCHC 33.1 (32.0-36.0) g/dL RDW Std Deviation 50.8 H (36.4-46.3) fL RDW Coeff of Shahid 14.6 H (11.5-14.5) % Plt Count 189 (130-400) K/uL MPV 9.6 (9.4-12.4) fL Immature Gran % (Auto) 0.5 % Neut % (Auto) 80.6 % Lymph % (Auto) 10.7 % [place] % (Auto) 7.7 % Eos % (Auto) 0.2 % Baso % (Auto) 0.3 % Neut # (Auto) 9.53 H (1.40-6.50) K/uL Lymph # (Auto) 1.26 (1.20-3.40) K/uL [place] # (Auto) 0.91 H (0.11-0.59) K/uL Eos # (Auto) 0.02 (0.00-0.50) K/uL Baso # (Auto) 0.03 (0.00-0.20) K/uL Immature Gran # (Auto) 0.06 (0.01-0.20) K/uL Sodium 136 (136-145) mmol/L Potassium 3.8 (3.5-5.1) mmol/L Chloride 101 (98-107) mmol/L Carbon Dioxide 26 (21-32) mmol/L Anion Gap 9 (3-11) BUN 12 (6-23) mg/dl Creatinine 0.65 (0.6-1.2) mg/dl Est Cr Clr Drug Dosing 81.9 ml/min Est GFR ( Amer) 100.7 ml/min Est GFR (Non-Af Amer) 86.8 ml/min BUN/Creatinine Ratio 18.5 (10-20) Glucose 132 H (70-99(Fasting)) mg/dl Lactate 1.4 (0.4-2.0) mmol/L Calcium 9.2 (8.6-10.3) mg/dl Magnesium 1.8 (1.7-2.4) mg/dl Total Bilirubin 0.4 (0.2-1.0) mg/dl Direct Bilirubin 0.1 (0-0.2) mg/dl AST 18 (13-39) U/L ALT 17 (7-52) U/L Alkaline Phosphatase 50 (34-104) U/L Troponin I High Sens 6.5 (0-14) pg/ml Total Protein 6.6 (6.0-8.3) gm/dl Albumin 3.8 (3.4-5.0) gm/dl Procalcitonin 0.12 (0-0.5) ng/ml Adenovirus (PCR) Not Detected (NotDetected) B. pertussis DNA (PCR) Not Detected (NotDetected) B.parapertussis DNA PCR Not Detected (NotDetected) C. pneumoniae DNA (PCR) Not Detected (NotDetected) Coronavirus OC43 (PCR) Not Detected (NotDetected) Coronavirus HKU1 (PCR) Not Detected (NotDetected) Coronavirus 229E (PCR) Not Detected (NotDetected) SARS-CoV-2 (PCR) DETECTED A (NotDetected) Coronavirus NL63 (PCR) Not Detected (NotDetected) Human Metapneumovir PCR Not Detected (NotDetected) Influenza Type A (PCR) Not Detected (NotDetected) Influenza Type B (PCR) Not Detected (NotDetected) M. pneumoniae (PCR) Not Detected (NotDetected) Parainfluenza 1 (PCR) Not Detected (NotDetected) Parainfluenza 2 (PCR) Not Detected (NotDetected) Parainfluenza 3 (PCR) Not Detected (NotDetected) Parainfluenza 4 (PCR) Not Detected (NotDetected) RSV (PCR) Not Detected (NotDetected) Entero/Rhino (PCR) Not Detected (NotDetected) Administered Medications Discontinued Medications Dexamethasone (Dexamethasone Sod Inj 4 Mg/Ml Vial) 10 mg IV NOW STA Stop: 10/16/23 05:20 Last Admin: 10/16/23 05:26 Dose: 10 mg Documented By: ZACHARIAHW Discharge Plan Visit Data Chief Complaint: Flu Like Symptoms Stated Complaint: SOB, Fever, Cough, Sore Throat ED Provider: Karen Pearl Discharge Problem: Hypoxia, COVID, Weakness Forms Stand Alone Forms: [facility] Prescriptions Prescriptions: No Action hydroxychloroquine 200 mg tablet 200 mg PO BID Qty: 180 2RF metoprolol succinate 50 mg tablet extended release 24 hr 50 mg PO HS Qty: 90 3RF Rx Instructions: Take 1 tablet by mouth every day at bedtime diltiazem HCl 180 mg capsule,extended release 24hr 180 mg PO QAM Qty: 90 3RF simvastatin 10 mg tablet 10 mg PO QPM Qty: 90 1RF levothyroxine 137 mcg tablet 137 mcg PO DAILY Qty: 90 3RF venlafaxine 75 mg capsule,extended release 24hr 75 mg PO QAM Qty: 90 3RF metformin 500 mg tablet extended release 24 hr 500 mg PO QAM Qty: 180 3RF methylprednisolone 4 mg tablet 2 mg PO QAM Qty: 45 2RF Rx Instructions: Use as Directed. May increase dosages as necessary for flares. albuterol sulfate 90 mcg/actuation HFA aerosol inhaler 2 puff inhalation Q6H PRN (Reason: shortness of breath) Qty: 8.5 5RF Multi For Her 50 Plus 400-80 mcg Capsule 1 cap PO QAM psyllium husk [Metamucil] 0.4 gram Capsule 0.4 g PO UD PRN (Reason: Constipation) Patient Comments: RARELY acetaminophen [Tylenol Extra Strength] 500 mg Tablet 1,000 mg PO Q8H PRN (Reason: pain) Qty: 90 0RF cholecalciferol (vitamin D3) [Vitamin D3] 25 mcg (1,000 unit) tablet 1,000 unit PO QAM solifenacin [Vesicare] 5 mg Tablet 5 mg PO QPM biotin 1 mg Capsule 1 mg PO BID magnesium citrate,mag oxide 250 mg Capsule 500 mg PO DIRECTED PRN (Reason: Constipation) Referrals Referrals: Megan Murphy DO [Primary Care Provider] -
[2023-10-16 04:31] LABS: Basophils # (auto) 0.03 K/uL (0.00-0.20); Basophils % (auto) 0.3 %; Eosinophils # (auto) 0.02 K/uL (0.00-0.50); Eosinophils % (auto) 0.2 %; Hematocrit (blood only) 41.1 % (37.0-47.0); Hemoglobin 13.6 g/dl (12.0-16.0); Immature Granulocytes # (auto) 0.06 K/uL (0.01-0.20); Immature Granulocytes % (auto) 0.5 %; Lymphocytes # (auto) 1.26 K/uL (1.20-3.40); Lymphocytes % (auto) 10.7 %; Mean Corpuscular Hemoglobin 31.1 pg (25.0-34.0); Mean Corpuscular Hgb Conc 33.1 g/dL (32.0-36.0); Mean Corpuscular Volume 94.1 fL (80.0-100.0); Mean Platelet Volume 9.6 fL (9.4-12.4); Monocytes # (auto) 0.91 K/uL (0.11-0.59); Monocytes % (auto) 7.7 %; Neutrophils # (auto) 9.53 K/uL (1.40-6.50); Neutrophils % (auto) 80.6 %; Platelet Count 189 K/uL (130-400); RDW Coefficient of Variation 14.6 % (11.5-14.5); RDW Standard Deviation 50.8 fL (36.4-46.3); Red Blood Count 4.37 M/uL (4.20-5.40); White Blood Count 11.81 K/ul (4.8-10.8)
[2023-10-16 04:33] LABS: Albumin Level 3.8 gm/dl (3.4-5.0); BUN Creatinine Ratio 18.5 (10-20); Bilirubin Direct 0.1 mg/dl (0-0.2); Bilirubin,Total 0.4 mg/dl (0.2-1.0); Calcium 9.2 mg/dl (8.6-10.3); Creatinine Clr Calc Pharmacy 81.9 ml/min; Est GFR (African American) 100.7 ml/min; Est GFR (Non-African American) 86.8 ml/min; Magnesium 1.8 mg/dl (1.7-2.4); Potassium 3.8 mmol/L (3.5-5.1); Total Protein 6.6 gm/dl (6.0-8.3)
[2023-10-16 04:39] LABS: Troponin I High Sensitivity 6.5 pg/ml (0-14)
[2023-10-16 05:06] LABS: Adenovirus PCR Not Detected (NotDetected); Bordetella parapertussis PCR Not Detected (NotDetected); Bordetella pertussis PCR Not Detected (NotDetected); Chlamydia pneumoniae PCR Not Detected (NotDetected); Coronavirus 229E PCR Not Detected (NotDetected); Coronavirus CoV-2 (COVID19)PCR DETECTED (NotDetected); Coronavirus HKU1 PCR Not Detected (NotDetected); Coronavirus NL63 PCR Not Detected (NotDetected); Coronavirus OC43PCR Not Detected (NotDetected); Human Metapneumovirus PCR Not Detected (NotDetected); Influenza A PCR Not Detected (NotDetected); Influenza B PCR Not Detected (NotDetected); Mycoplasma pneumoniae PCR Not Detected (NotDetected); Parainfluenza Virus 1 PCR Not Detected (NotDetected); Parainfluenza Virus 2 PCR Not Detected (NotDetected); Parainfluenza Virus 3 PCR Not Detected (NotDetected); Parainfluenza Virus 4 PCR Not Detected (NotDetected); Respiratory Syncytial VirusPCR Not Detected (NotDetected); Rhinovirus/Enterovirus PCR Not Detected (NotDetected)
[2023-10-16] MEDS: DEXAMETHASONE SOD INJ 4 MG/ML VIAL IV STA (05:26)
--- NOTE | 2023-10-16 06:30 | History & Physical Report ---
Date of Service October 16, 2023 Assessment & Plan (1) COVID-19 virus infection: (2) Hypoxia: (3) Interstitial lung disease: (4) Type 2 diabetes mellitus: (5) Hypertension: (6) PAC (premature atrial contraction): (7) PSVT (paroxysmal supraventricular tachycardia): (8) PVC (premature ventricular contraction): (9) Sleep apnea: (10) Rheumatoid arthritis: (11) Depression: Plan Viral process/hypoxia/COVID-19 infection/interstitial lung disease- Admit to [facility] [place] with telemetry Patient's symptoms are primarily head and neck, with less so respiratory. Normal-appearing chest x-ray Received dexamethasone 10 mg IV from the ED, continue dexamethasone at 4 mg IV every morning Continue albuterol HFA 2 puffs every 6 hours as needed Guaifenesin extended release 1200 mg p.o. twice daily Acetaminophen to 1000 mg by mouth every 8 hours as needed for mild pain or fever COVID-19 precautions Rheumatoid arthritis- Continue hydroxychloroquine, acetaminophen Hypertension/PSVT/PACs/PVCs- Continue diltiazem extended release, metoprolol succinate Diabetes mellitus- Hold metformin Placed on Accu-Cheks with NovoLog SSI Expect an increase in blood sugars while on dexamethasone IV History of Present Illness Chief Complaint: The patient presents to the emergency department with complaint of 4 days of sore throat, cough, shortness of breath and intermittent temperature, he developed weakness today and needed to be helped up from her chair and someone to help her to be stable when she walks Primary Care Provider: Megan Murphy DO . The patient is a 77-year-old female with a past medical history including interstitial lung disease, esophageal dysphagia, inflammatory arthritis on hydroxychloroquine, PVCs, PSVT, PAC, hypertriglyceridemia, diabetes mellitus type 2, hypertension, osteoarthritis, sleep apnea, hypothyroidism, and osteoporosis. She presents to the emergency department with 4 days of persistent and progressive sore throat, cough, shortness of breath, dyspnea on exertion, intermittent temperature, and today progressed to feeling weak and difficulty with ambulation. Testing in the emergency department included a respiratory BioFire test which was positive for COVID-19. Patient's oxygenation was 89% on room air, that improved to 96% on 2 L nasal cannula oxygen. The patient was given dexamethasone 10 mg IV from the ED, and was then referred for evaluation for admission. Allergies Allergy/AdvReac Type Severity Reaction Status Date / Time lisinopril Allergy Unknown COUGH Verified 07/07/23 09:54 bupropion [From Wellbutrin] AdvReac Unknown nightmares Verified 07/07/23 09:54 tramadol [From Ultram] AdvReac Unknown NIGHTMARES Verified 07/07/23 09:54 Home Medications Medication Instructions Recorded Confirmed Type fitlrvmcbubt-prmwalhu-yvhlq acid 1 cap PO QAM 08/19/18 10/16/23 History 400 mcg-vitamin K 80 mcg capsule (Multi For Her 50 Plus) psyllium husk 0.4 gram capsule 0.4 g PO UD PRN Constipation 08/19/18 10/16/23 History (Metamucil) acetaminophen 500 mg tablet 1,000 mg (2 x 500 mg) PO Q8H PRN 09/08/18 10/16/23 Rx (Tylenol Extra Strength) pain #90 tabs solifenacin 5 mg tablet (Vesicare) 5 mg PO QPM 10/07/19 10/16/23 History cholecalciferol (vitamin D3) 25 1,000 unit PO QAM 08/06/22 10/16/23 History mcg (1,000 unit) tablet (Vitamin D3) hydroxychloroquine 200 mg tablet 200 mg PO BID #180 tabs 01/28/23 10/16/23 Rx metoprolol succinate 50 mg 50 mg PO HS #90 tabs 02/24/23 10/16/23 Rx tablet,extended release 24 hr albuterol sulfate 90 mcg/actuation 2 puff inhalation Q6H PRN 03/06/23 10/16/23 Rx aerosol inhaler shortness of breath #8.5 grams diltiazem HCl 180 mg 180 mg PO QAM #90 caps 05/26/23 10/16/23 Rx capsule,extended release 24 hr simvastatin 10 mg tablet 10 mg PO QPM #90 tabs 05/27/23 10/16/23 Rx levothyroxine 137 mcg tablet 137 mcg PO DAILY #90 tabs 05/29/23 10/16/23 Rx venlafaxine 75 mg capsule,extended 75 mg PO QAM #90 caps 07/11/23 10/16/23 Rx release 24 hr metformin 500 mg tablet,extended 500 mg PO QAM #180 tabs 09/10/23 10/16/23 Rx release 24 hr methylprednisolone 4 mg tablet 2 mg (1/2 x 4 mg) PO QAM #45 tabs 09/17/23 10/16/23 Rx biotin 1 mg capsule 1 mg PO BID 10/16/23 10/16/23 History magnesium citrate,mag oxide 250 mg 500 mg PO DIRECTED PRN 10/16/23 10/16/23 History capsule Constipation Past Med/Surg History Problem List (Updated 10/16/23 @ 06:25 by Willem Thornton MD) Depression hx Rheumatoid arthritis Hypoxia COVID-19 virus infection Interstitial lung disease History of colon polyps Esophageal dysphagia Dyspnea on exertion Inflammatory arthritis Carpal tunnel syndrome, right Cervical radicular pain PVC (premature ventricular contraction) PSVT (paroxysmal supraventricular tachycardia) PAC (premature atrial contraction) Degenerative joint disease of left hip History of renal stone Right knee DJD High triglycerides (Chronic) PAC (premature atrial contraction) PVC's (premature ventricular contractions) Type 2 diabetes mellitus Hypertension pt denies Osteoarthritis Sleep apnea cpap Hypothyroid Osteoporosis Medical History Rheumatoid arthritis History of colon polyps History of anesthesia reaction History of kidney stones Heart palpitations PAC (premature atrial contraction) PVC's (premature ventricular contractions) Carpal tunnel syndrome on both sides Type 2 diabetes mellitus Hypertension Depression Osteoarthritis Sleep apnea Hypothyroid Osteoporosis Surgical History H/O left cataract extraction (04/2023) Hx of right cataract extraction (04/2023) History of esophagogastroduodenoscopy (EGD) History of colonoscopy History of cystoscopy History of total left hip arthroplasty Hx of breast biopsy Hx of shoulder replacement History of total right knee replacement (TKR) Family History Grandmother (Maternal) Diabetes Grandmother (Paternal) Diabetes Uncle Colorectal cancer Aunt Colorectal cancer Father COPD (chronic obstructive pulmonary disease) Smoker Mother Breast cancer Aunt Breast cancer Aunt Pancreatic cancer Other No family history of adverse response to anesthesia Denies family history of Ovarian cancer Prostate cancer Myocardial infarction Social History Smoking Status: Never smoker Second Hand Exposure: Yes (hx as child); Do You Dip or Chew Tobacco: No; Hx Alcohol Use: No Hx Substance Use: No Preferred Language: Ghanaian Communication Ability: Effective Visual Impairment: No Limitations Hearing Ability: Normal Patient Access Required: No Beliefs That Will Affect Care: None marital status: Current Living Situation: Spouse 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 How many Children do You have: 3 Feels Safe at Home: Yes Childhood Exposure to Second-Hand Smoke: Yes Diet: regular caffeine: No during the past year weight has: remained stable Dental Care, Regularly: Yes Physical Activity Frequency: Daily Seatbelt Use: always Sunscreen Use: Yes Assistive Devices: Cane, CPAP and Glasses Review of Systems Review of Systems: The patient denies chest pain, palpitations, lower extremity swelling, chills, sweats, nausea, vomiting, diarrhea , constipation, abdominal pain, pelvic pain, blood in urine or stool, dysuria, urinary frequency or urgency, lightheadedness, dizziness, headache, memory loss, loss of consciousness, rash, abnormal bruising or bleeding, imbalance, focal weakness, numbness or tingling in arms or legs, generalized arthralgias or myalgias, back or neck pain, or night sweats. The review of systems is otherwise negative other than for that already noted above, and at least 10 systems have been reviewed. Physical Exam Physical Exam: The patient is awake, alert and oriented 3, well developed and well nourished, normocephalic and atraumatic, lying in bed and in no acute distress. HEENT--PERRL, EOMI, mucous membranes and oropharynx normal. Neck--supple. No JVD. No bruits. Thyroid normal, trachea midline, no adenopathy. Heart--normal S1 and S2. No murmurs, rubs or gallops. Lungs--few coarse breath sounds bilaterally. No respiratory distress, no accessory muscle use. Abdomen--normal bowel sounds and soft. Nontender. Nondistended, no hernias or masses, no organomegaly. Extremities--no cyanosis or clubbing. No edema. Dermatologic--normal skin turgor, normal color, no abnormal lymph nodes, no rash. Neurologic--cranial nerves II through XII grossly intact. Rheumatologic--normal range of motion. Psychiatric--normal affect. Results & Data Results & Data Vital Signs (Past 12 Hours) Vital Signs Temp Pulse Pulse Resp BP BP Pulse Ox 10/16/23 06:00 68 28 H 134/78 94 10/16/23 05:00 68 20 115/63 94 10/16/23 04:38 71 20 125/64 95 10/16/23 04:23 73 20 108/58 L 96 10/16/23 04:08 75 24 97 10/16/23 04:04 37.3 C 73 20 135/62 89 L 10/16/23 03:51 76 O2 Del Method O2 Flow Rate 10/16/23 06:00 Nasal Cannula 2 10/16/23 05:00 Nasal Cannula 2 10/16/23 04:38 Nasal Cannula 2 10/16/23 04:23 Nasal Cannula 2 10/16/23 04:08 Nasal Cannula 2 10/16/23 04:04 Room Air 10/16/23 03:51 Laboratory Results Laboratory Results WBC 11.81 K/ul (4.8-10.8) H 10/16/23 04:00 RBC 4.37 M/uL (4.20-5.40) 10/16/23 04:00 Hgb 13.6 g/dl (12.0-16.0) 10/16/23 04:00 Hct 41.1 % (37.0-47.0) 10/16/23 04:00 MCV 94.1 fL (80.0-100.0) 10/16/23 04:00 MCH 31.1 pg (25.0-34.0) 10/16/23 04:00 MCHC 33.1 g/dL (32.0-36.0) 10/16/23 04:00 RDW Std Deviation 50.8 fL (36.4-46.3) H 10/16/23 04:00 RDW Coeff of Shahid 14.6 % (11.5-14.5) H 10/16/23 04:00 Plt Count 189 K/uL (130-400) 10/16/23 04:00 MPV 9.6 fL (9.4-12.4) 10/16/23 04:00 Immature Gran % (Auto) 0.5 % 10/16/23 04:00 Neut % (Auto) 80.6 % 10/16/23 04:00 Lymph % (Auto) 10.7 % 10/16/23 04:00 Edwards % (Auto) 7.7 % 10/16/23 04:00 Eos % (Auto) 0.2 % 10/16/23 04:00 Baso % (Auto) 0.3 % 10/16/23 04:00 Neut # (Auto) 9.53 K/uL (1.40-6.50) H 10/16/23 04:00 Lymph # (Auto) 1.26 K/uL (1.20-3.40) 10/16/23 04:00 Edwards # (Auto) 0.91 K/uL (0.11-0.59) H 10/16/23 04:00 Eos # (Auto) 0.02 K/uL (0.00-0.50) 10/16/23 04:00 Baso # (Auto) 0.03 K/uL (0.00-0.20) 10/16/23 04:00 Immature Gran # (Auto) 0.06 K/uL (0.01-0.20) 10/16/23 04:00 Sodium 136 mmol/L (136-145) 10/16/23 04:00 Potassium 3.8 mmol/L (3.5-5.1) 10/16/23 04:00 Chloride 101 mmol/L (98-107) 10/16/23 04:00 Carbon Dioxide 26 mmol/L (21-32) 10/16/23 04:00 Anion Gap 9 (3-11) 10/16/23 04:00 BUN 12 mg/dl (6-23) 10/16/23 04:00 Creatinine 0.65 mg/dl (0.6-1.2) 10/16/23 04:00 Est Cr Clr Drug Dosing 81.9 ml/min 10/16/23 04:00 Est GFR ( Amer) 100.7 ml/min 10/16/23 04:00 Est GFR (Non-Af Amer) 86.8 ml/min 10/16/23 04:00 BUN/Creatinine Ratio 18.5 (10-20) 10/16/23 04:00 Glucose 132 mg/dl (70-99(Fasting)) H 10/16/23 04:00 Lactate 1.4 mmol/L (0.4-2.0) 10/16/23 04:30 Calcium 9.2 mg/dl (8.6-10.3) 10/16/23 04:00 Magnesium 1.8 mg/dl (1.7-2.4) 10/16/23 04:00 Total Bilirubin 0.4 mg/dl (0.2-1.0) 10/16/23 04:00 Direct Bilirubin 0.1 mg/dl (0-0.2) 10/16/23 04:00 AST 18 U/L (13-39) 10/16/23 04:00 ALT 17 U/L (7-52) 10/16/23 04:00 Alkaline Phosphatase 50 U/L (34-104) 10/16/23 04:00 Troponin I High Sens 6.5 pg/ml (0-14) 10/16/23 04:00 Total Protein 6.6 gm/dl (6.0-8.3) 10/16/23 04:00 Albumin 3.8 gm/dl (3.4-5.0) 10/16/23 04:00 Procalcitonin 0.12 ng/ml (0-0.5) 10/16/23 04:00 Adenovirus (PCR) Not Detected (NotDetected) 10/16/23 03:50 B. pertussis DNA (PCR) Not Detected (NotDetected) 10/16/23 03:50 B.parapertussis DNA PCR Not Detected (NotDetected) 10/16/23 03:50 C. pneumoniae DNA (PCR) Not Detected (NotDetected) 10/16/23 03:50 Coronavirus OC43 (PCR) Not Detected (NotDetected) 10/16/23 03:50 Coronavirus HKU1 (PCR) Not Detected (NotDetected) 10/16/23 03:50 Coronavirus 229E (PCR) Not Detected (NotDetected) 10/16/23 03:50 SARS-CoV-2 (PCR) DETECTED (NotDetected) A 10/16/23 03:50 Coronavirus NL63 (PCR) Not Detected (NotDetected) 10/16/23 03:50 Human Metapneumovir PCR Not Detected (NotDetected) 10/16/23 03:50 Influenza Type A (PCR) Not Detected (NotDetected) 10/16/23 03:50 Influenza Type B (PCR) Not Detected (NotDetected) 10/16/23 03:50 M. pneumoniae (PCR) Not Detected (NotDetected) 10/16/23 03:50 Parainfluenza 1 (PCR) Not Detected (NotDetected) 10/16/23 03:50 Parainfluenza 2 (PCR) Not Detected (NotDetected) 10/16/23 03:50 Parainfluenza 3 (PCR) Not Detected (NotDetected) 10/16/23 03:50 Parainfluenza 4 (PCR) Not Detected (NotDetected) 10/16/23 03:50 RSV (PCR) Not Detected (NotDetected) 10/16/23 03:50 Entero/Rhino (PCR) Not Detected (NotDetected) 10/16/23 03:50 Code Status & VTE Plan Code Status Full code VTE Prophylaxis Plan VTE Prophylaxis will be ordered: Yes PG Care Time/CCT Total # of Minutes Spent Total Time Spent with Patient: Total time spent is greater than 50% in coordination of care (as documented) at patient's floor/unit and/or counseling patient: Coding Level of Care Code 46526 INT INP/OBS CARE 375MIN Diagnoses COVID-19 virus infection U07.1 Hypoxia R09.02 Interstitial lung disease J84.9 Type 2 diabetes mellitus E11.9 Primary hypertension I10 Hypertension type: primary hypertension PAC (premature atrial contraction) I49.1 PSVT (paroxysmal supraventricular tachycardia) I47.1 PVC (premature ventricular contraction) I49.3 Sleep apnea G47.30 Rheumatoid arthritis M06.9 Depression F32.9 (5) Hypertension Hypertension type: primary hypertension Qualified Code(s): I10 - Essential (primary) hypertension
[2023-10-16] MEDS ORDERED: GLUCAGON FOR INJ 1 MG VIAL SQ PRN (06:44)
[2023-10-16] MEDS ORDERED: GLUCOSE 40% GEL 15 GM TUBE PO PRN (06:44)
[2023-10-16] MEDS ORDERED: [UNRECOGNIZED DRUG - OTHER] PO PRN (06:44)
[2023-10-16] MEDS ORDERED: CARBOHYDRATES FOR HYPOGLYCEMIA PO PRN (06:44)
[2023-10-16] MEDS ORDERED: ENOXAPARIN 0.5 MG/KG SQ SCH (06:44)
[2023-10-16] MEDS ORDERED: ALBUTEROL HFA 8 GM INHALER INH PRN (06:44)
[2023-10-16] MEDS ORDERED: ONDANSETRON INJ 2 MG/ML 2 ML VIAL IV PRN (06:44)
[2023-10-16] MEDS ORDERED: GLUCOSE 10 TAB/TUBE PO PRN (06:44)
[2023-10-16] MEDS ORDERED: DEXTROSE 50% 50 ML SYRINGE IV PRN (06:44)
[2023-10-16] MEDS ORDERED: PSYLLIUM or GUAR GUM FIBER 4GM PACKET PO PRN (07:01)
[2023-10-16 07:04] LABS: Appearance Urine Clear (Clear); Bilirubin Urine Negative (Negative); Blood Urine Negative (Negative); Color Urine Yellow; Glucose Urine UA Negative (Negative); Ketones Urine Negative (Negative); Leukocyte Esterase Urine Negative (Negative); Nitrite Urine Negative (Negative); Protein Urine Negative (Negative); Specific Gravity Urine 1.011 (1.000-1.030); Urobilinogen Urine Negative (Negative); pH Urine 6.5 (4.5-7.5)
--- NOTE | 2023-10-16 07:25 | XRay Report ---
SINGLE VIEW CHEST CLINICAL HISTORY: Sepsis FINDINGS: An AP, portable, upright chest radiograph is compared to study dated 08/23/2018 and correlat ed with chest CT dated 05/01/2021. The heart is mildly enlarged noting atherosclerotic calcification o f the thoracic aorta. The pulmonary vasculature is noncongested. There is chronic elevation of the ri ght hemidiaphragm and bibasilar scarring/atelectasis. No airspace consolidation or large pleural effu ivy is identified. No pneumothorax is seen. The skeletal structures are osteopenic. The bony thorax is grossly intact. A left shoulder arthroplasty is in place. Arthritic change is seen in the right sh oulder. IMPRESSION: No active disease in the chest. ACT 112: Negative or not required by law. Electronically signed by: Avery Bailon M.D. 10/16/2023 7:24 AM
[2023-10-16] MEDS: guaiFENesin 600 MG TABCR PO SCH (07:57)
[2023-10-16] MEDS: CHOLECALCIFEROL 25 MCG (1000 UNITS) TAB PO SCH (07:57)
[2023-10-16] MEDS: VENLAFAXINE HCL XR 75 MG CAPXR PO SCH (07:57)
[2023-10-16] MEDS: dilTIAZem HCL 180 MG CAPCR PO SCH (07:57)
[2023-10-16] MEDS: HYDROXYCHLOROQUINE SULFATE 200 MG TAB PO SCH (07:57)
[2023-10-16] MEDS: LEVOTHYROXINE SODIUM 137 MCG TABLET PO SCH (07:57)
[2023-10-16] MEDS: MULTIVITAMIN TAB PO SCH (07:57)
[2023-10-16] MEDS: ENOXAPARIN INJ 60 MG/0.6 ML SYR SQ SCH (07:58)
[2023-10-16] MEDS ORDERED: NON-FORMULARY MEDICATION (Biotin 1 mg Capsule) PO SCH (09:00)
[2023-10-16] MEDS: INSULIN ASPART PER UNIT CHARGE SC SCH (09:19)
[2023-10-16 09:54] LABS: C Reactive Protein 12.27 mg/dl (0-0.5)
[2023-10-16] MEDS: ACETAMINOPHEN 500 MG TAB PO PRN (11:57)
--- NOTE | 2023-10-16 13:34 | Electrocardiogram Report ---
Test Reason : Blood Pressure : / mmHG Vent. Rate : 076 BPM Atrial Rate : 076 BPM P-R Int : 164 ms QRS Dur : 072 ms QT Int : 398 ms P-R-T Axes : 071 -03 006 degrees QTc Int : 447 ms Normal sinus rhythm Normal ECG When compared with ECG of 23-AUG-2018 13:52, No significant change was found Confirmed by Des Lo ([id number]) on 10/16/2023 1:34:50 PM Referred By: REFERRED SELF Confirmed By:Cam Lo
--- NOTE | 2023-10-16 16:45 | Communication Note ---
Date of Service: October 16, 2023 Patient seen and examined this evening. Patient reports to be feeling well and better than when she first got here. She was weaned off her oxygen and was on room air at time of encounter. She denied any chest pain or shortness of breath. She still does have congestion. Plan: Viral process/hypoxia/COVID-19 infection/interstitial lung disease- Patient's symptoms are primarily head and neck, with less so respiratory. Normal-appearing chest x-ray Received dexamethasone 10 mg IV from the ED, continue dexamethasone at 6mg PO daily. Continue albuterol HFA 2 puffs every 6 hours as needed Guaifenesin extended release 1200 mg p.o. twice daily Acetaminophen to 1000 mg by mouth every 8 hours as needed for mild pain or fever COVID-19 precautions Rheumatoid arthritis- Continue hydroxychloroquine, acetaminophen Hypertension/PSVT/PACs/PVCs- Continue diltiazem extended release, metoprolol succinate Diabetes mellitus- Hold metformin Placed on Accu-Cheks with NovoLog SSI Expect an increase in blood sugars while on dexamethasone
[2023-10-16] MEDS: METOPROLOL SUCC 50MG EXT REL TAB PO SCH (21:06)
[2023-10-16] MEDS: SIMVASTATIN 10 MG TAB PO SCH (21:06)
[2023-10-16] MEDS: OXYBUTYNIN CHLORIDE XL 5 MG TABCR PO SCH (21:06)
[2023-10-17] MEDS ORDERED: dexAMETHasone 4 MG in SYRINGE 0 ML IV SCH (06:00)
[2023-10-17 09:02] LABS: Basophils # (auto) 0.02 K/uL (0.00-0.20); Basophils % (auto) 0.1 %; Hematocrit (blood only) 42.2 % (37.0-47.0); Immature Granulocytes # (auto) 0.09 K/uL (0.01-0.20); Immature Granulocytes % (auto) 0.7 %; Lymphocytes # (auto) 1.76 K/uL (1.20-3.40); Lymphocytes % (auto) 12.9 %; Mean Corpuscular Hemoglobin 31.1 pg (25.0-34.0); Mean Corpuscular Hgb Conc 33.2 g/dL (32.0-36.0); Mean Corpuscular Volume 93.8 fL (80.0-100.0); Mean Platelet Volume 9.8 fL (9.4-12.4); Monocytes # (auto) 1.08 K/uL (0.11-0.59); Monocytes % (auto) 7.9 %; Neutrophils # (auto) 10.68 K/uL (1.40-6.50); Neutrophils % (auto) 78.4 %; Platelet Count 230 K/uL (130-400); RDW Coefficient of Variation 14.3 % (11.5-14.5); RDW Standard Deviation 49.1 fL (36.4-46.3); White Blood Count 13.63 K/ul (4.8-10.8)
[2023-10-17 09:13] LABS: BUN Creatinine Ratio 21.4 (10-20); C Reactive Protein 10.38 mg/dl (0-0.5); Calcium 9.4 mg/dl (8.6-10.3); Est GFR (African American) 98.2 ml/min; Est GFR (Non-African American) 84.8 ml/min; Magnesium 2.2 mg/dl (1.7-2.4); Potassium 4.2 mmol/L (3.5-5.1)
[2023-10-17] MEDS: dexAMETHasone 1 MG TAB PO SCH (09:24)
[2023-10-17 09:38] LABS: Estimated Average Glucose 154 mg/dl
--- NOTE | 2023-10-17 11:08 | Discharge Summary ---
Date of Service October 17, 2023 Admission HPI Per Admitting Provider The patient is a 77-year-old female with a past medical history including interstitial lung disease, esophageal dysphagia, inflammatory arthritis on hydroxychloroquine, PVCs, PSVT, PAC, hypertriglyceridemia, diabetes mellitus type 2, hypertension, osteoarthritis, sleep apnea, hypothyroidism, and osteoporosis. She presents to the emergency department with 4 days of persistent and progressive sore throat, cough, shortness of breath, dyspnea on exertion, intermittent temperature, and today progressed to feeling weak and difficulty with ambulation. Testing in the emergency department included a respiratory BioFire test which was positive for COVID-19. Patient's oxygenation was 89% on room air, that improved to 96% on 2 L nasal cannula oxygen. The patient was given dexamethasone 10 mg IV from the ED, and was then referred for evaluation for admission. Principal Diagnosis COVID-19 Discharge Exam Constitutional WD/WN, vitals as above Eyes PERRL, conjunctivae normal, anicteric sclerae Respiratory normal respiratory effort, lungs clear to auscultation Cardiovascular RRR, no murmur, no edema Skin no rashes, warm and dry Psychiatric A+Ox3, euthymic affect Discharge Data Allergies Allergy/AdvReac Type Severity Reaction Status Date / Time lisinopril Allergy Unknown COUGH Verified 07/07/23 09:54 bupropion [From Wellbutrin] AdvReac Unknown nightmares Verified 07/07/23 09:54 tramadol [From Ultram] AdvReac Unknown NIGHTMARES Verified 07/07/23 09:54 Consultations 10/16/23 05:19 ED Decision to Admit Stat Ordered Studies 10/17/23 08:18 10/17/23 08:18 Vital Signs Temp 36.7 C 10/17/23 14:35 Pulse 76 10/17/23 14:35 Resp 20 10/17/23 14:35 BP 121/81 10/17/23 14:35 Pulse Ox 94 10/17/23 14:35 O2 Del Method Room Air 10/17/23 12:00 O2 Flow Rate 96 10/16/23 16:04 Chest X-Ray 10/16/23 04:08 SINGLE VIEW CHEST CLINICAL HISTORY: Sepsis FINDINGS: An AP, portable, upright chest radiograph is compared to study dated 08/23/2018 and correlated with chest CT dated 05/01/2021. The heart is mildly enlarged noting atherosclerotic calcification of the thoracic aorta. The pulmonary vasculature is noncongested. There is chronic elevation of the right hemidiaphragm and bibasilar scarring/atelectasis. No airspace consolidation or large pleural effusion is identified. No pneumothorax is seen. The skeletal structures are osteopenic. The bony thorax is grossly intact. A left shoulder arthroplasty is in place. Arthritic change is seen in the right shoulder. IMPRESSION: No active disease in the chest. ACT 112: Negative or not required by law. Electronically signed by: Avery Bailon M.D. 10/16/2023 7:24 AM Hospital Course (1) COVID-19 virus infection: Patient presented to the ED on 10/15 for congestion and shortness of breath. She was found to be + for COVID. CXR was negative for any abnormalities. She was given dexamethasone 10mg IV on 10/15 and dexamethasone 7mg PO on 10/16. She noticed improvement in her symptoms. She was to use her albuterol inhaler 2 puffs every 6 hours prn. Mucinex was given in the hospital and was recommended upon discharge. She was to use tylenol as needed for pain or fever. Plan Chronic conditions: RA: hydroxychloroquine, resume methylprednisolone outpatient. Diabetes: resume previous diabetic medications upon discharge HTN, PSVT/PACs/PVCs: Diltiazem, metoprolol succinate Total Time Total Time Spent Total Time Spent (In Minutes): 32 Total Time Includes: Examination of the Patient, Discharge Planning and Medication Reconciliation Discharge Plan Discharge Items Patient Disposition: Home - Self-Care Reason For Visit: COVID-19, ILD, HYPOXIA Discharge Diagnosis: COVID-19 Activity: Resume your previous activity Non-emergency contact: Primary Care Provider Call non-emergency contact if: you have any medication questions, your symptoms worsen and you have a fever Follow-up/Referrals: Megan Murphy DO [Primary Care Provider] - 10/24/23 11:15 am (With Ezequiel Pritchett PA-C--[address], [address] [facility], [address], [place], [place] [phone]) Diet: Carb Consistent or DM2 and Heart Healthy Addtl Attending Provider Instructions: Ms. Morris, You were hospitalized for flu-like symptoms and found to be positive for COVID- 19. During your inpatient stay you were given steroids and Mucinex to help with your symptoms. Please see recommendations below regarding your discharge. 1. Please continue taking Mucinex twice daily until your congestion resolves 2. Please continue to drink an adequate amount of fluids. 3. You may resume your previous outpatient medications upon discharge. Please follow up with your PCP within 1-2 weeks of discharge. If you start to develop worsening symptoms such as shortness of breath, chest pain, dizziness, lightheadedness, or worsening fatigue please report back to the ED for further evaluation. Sincerely, Laurita Aradna PA-C Pending Studies at Discharge: No Stand-Alone Forms: My [employer], Smoking Cessation Medications and DC Order Prescriptions: Continued hydroxychloroquine 200 mg tablet 200 mg PO BID Qty: 180 2RF metoprolol succinate 50 mg tablet extended release 24 hr 50 mg PO HS Qty: 90 3RF Rx Instructions: Take 1 tablet by mouth every day at bedtime diltiazem HCl 180 mg capsule,extended release 24hr 180 mg PO QAM Qty: 90 3RF simvastatin 10 mg tablet 10 mg PO QPM Qty: 90 1RF levothyroxine 137 mcg tablet 137 mcg PO DAILY Qty: 90 3RF venlafaxine 75 mg capsule,extended release 24hr 75 mg PO QAM Qty: 90 3RF metformin 500 mg tablet extended release 24 hr 500 mg PO QAM Qty: 180 3RF methylprednisolone 4 mg tablet 2 mg PO QAM Qty: 45 2RF Rx Instructions: Use as Directed. May increase dosages as necessary for flares. albuterol sulfate 90 mcg/actuation HFA aerosol inhaler 2 puff inhalation Q6H PRN (Reason: shortness of breath) Qty: 8.5 5RF Multi For Her 50 Plus 400-80 mcg Capsule 1 cap PO QAM psyllium husk [Metamucil] 0.4 gram Capsule 0.4 g PO UD PRN (Reason: Constipation) Patient Comments: RARELY acetaminophen [Tylenol Extra Strength] 500 mg Tablet 1,000 mg PO Q8H PRN (Reason: pain) Qty: 90 0RF cholecalciferol (vitamin D3) [Vitamin D3] 25 mcg (1,000 unit) tablet 1,000 unit PO QAM solifenacin [Vesicare] 5 mg Tablet 5 mg PO QPM biotin 1 mg Capsule 1 mg PO BID magnesium citrate,mag oxide 250 mg Capsule 500 mg PO DIRECTED PRN (Reason: Constipation) Discharge Orders: Discharge Order (Routine); Ordered 10/17/23 Ordered By: Laurita Aranda Admission Data Admit Date/Time: 10/16/23 06:17 Attending Provider: Herman Apple Admit Provider: Willem Thornton Primary Care Provider: Megan Murphy Other Providers: Willem Thornton Other Interventions: Discharge Summary Assessment (RN) Last Done: 10/17/23 14:35 Supervising Physician Co-Signing Physician Notes During face to face encounter, I obtained a brief physical examination, discussed hospital stay with patient and discharge instructions with patient. I discussed discharge plan of care with DANIEL Aranda. I reviewed above note and agree with it except for the following: Patient improved with corticosteroids. Given day 5 of symptoms, and inflammatory markers decreasing and patient no longer requiring hospitalization. We will have patient resume her home corticosteroids. Coding Level of Care Code 43751 INP/OBS DISCH >30 MIN Diagnoses COVID-19 virus infection U07.1
== END 2023-10-17 16:55 | disposition home or self-care (01) | DRG 178 ==
LOC: ED 03:43 → SUATTDRO 06:17 → EDINP 06:17 → 2W 16:20

== ENCOUNTER 2024-01-07 07:46 | Observation (INO) ==
--- NOTE | 2023-11-27 16:01 | PAT Medication Instructions ---
Medication Instructions Date of Service November 27, 2023 Home Medications Medication Instructions Recorded acetaminophen 500 mg tablet 1,000 mg (2 x 500 mg) PO Q8H PRN 09/08/18 (Tylenol Extra Strength) pain #90 tabs metoprolol succinate 50 mg 50 mg PO HS #90 tabs 02/24/23 tablet,extended release 24 hr albuterol sulfate 90 mcg/actuation 2 puff inhalation Q6H PRN 03/06/23 aerosol inhaler shortness of breath #8.5 grams diltiazem HCl 180 mg 180 mg PO QAM #90 caps 05/26/23 capsule,extended release 24 hr venlafaxine 75 mg capsule,extended 75 mg PO QAM #90 caps 07/11/23 release 24 hr metformin 500 mg tablet,extended 500 mg PO QAM #180 tabs 09/10/23 release 24 hr methylprednisolone 4 mg tablet 2 mg (1/2 x 4 mg) PO QAM #45 tabs 09/17/23 simvastatin 10 mg tablet 10 mg PO QPM #90 tabs 11/26/23 afmxnmwbllak-gglxtqil-bkcqi acid 400 mcg-vitamin K 80 mcg capsule (Multi For Her 50 Plus) 1 cap PO QAM psyllium husk 0.4 gram capsule (Metamucil) 0.4 g PO UD PRN acetaminophen 500 mg tablet (Tylenol Extra Strength) 1,000 mg (2 x 500 mg) PO Q8H PRN solifenacin 5 mg tablet (Vesicare) 5 mg PO QPM cholecalciferol (vitamin D3) 25 mcg (1,000 unit) tablet (Vitamin D3) 1,000 unit PO QAM metoprolol succinate 50 mg tablet,extended release 24 hr 50 mg PO HS albuterol sulfate 90 mcg/actuation aerosol inhaler 2 puff inhalation Q6H PRN diltiazem HCl 180 mg capsule,extended release 24 hr 180 mg PO QAM venlafaxine 75 mg capsule,extended release 24 hr 75 mg PO QAM metformin 500 mg tablet,extended release 24 hr 500 mg PO QAM methylprednisolone 4 mg tablet 2 mg (1/2 x 4 mg) PO QAM biotin 1 mg capsule 1 mg PO BID hydroxychloroquine 200 mg tablet 200 mg PO BID simvastatin 10 mg tablet 10 mg PO QPM levothyroxine 137 mcg tablet 137 mcg PO QAM ASK your prescriber and surgeon hydroxychloroquine 200 mg tablet 200 mg PO BID STOP taking 2 weeks before surgery (or as soon as possible if surgery is within 2 weeks) biotin 1 mg capsule 1 mg PO BID DO NOT take the morning of surgery brryksuqtgvg-fqcvpkjk-ffepe acid 400 mcg-vitamin K 80 mcg capsule (Multi For Her 50 Plus) 1 cap PO QAM psyllium husk 0.4 gram capsule (Metamucil) 0.4 g PO UD PRN cholecalciferol (vitamin D3) 25 mcg (1,000 unit) tablet (Vitamin D3) 1,000 unit PO QAM metformin 500 mg tablet,extended release 24 hr 500 mg PO QAM Take morning of surgery With a small sip of water, OTHERWISE NOTHING TO EAT OR DRINK AFTER MIDNIGHT: acetaminophen 500 mg tablet (Tylenol Extra Strength) 1,000 mg (2 x 500 mg) PO Q8H PRN(if needed) albuterol sulfate 90 mcg/actuation aerosol inhaler 2 puff inhalation Q6H PRN(use if needed; please bring with you to hospital day of surgery if possible) diltiazem HCl 180 mg capsule,extended release 24 hr 180 mg PO QAM venlafaxine 75 mg capsule,extended release 24 hr 75 mg PO QAM methylprednisolone 4 mg tablet 2 mg (1/2 x 4 mg) PO QAM levothyroxine 137 mcg tablet 137 mcg PO QAM Take evening before surgery acetaminophen 500 mg tablet (Tylenol Extra Strength) 1,000 mg (2 x 500 mg) PO Q8H PRN(if needed) albuterol sulfate 90 mcg/actuation aerosol inhaler 2 puff inhalation Q6H PRN(if needed) solifenacin 5 mg tablet (Vesicare) 5 mg PO QPM metoprolol succinate 50 mg tablet,extended release 24 hr 50 mg PO HS simvastatin 10 mg tablet 10 mg PO QPM Other Notes If you have any questions please call us at [phone] or [phone] or [phone] or [phone]
--- NOTE | 2023-12-10 10:13 | Anesthesiology Consultation ---
Date of Service December 10, 2023 Assessment & Plan (1) Encounter for pre-operative examination: - awaiting [place] PCP 01/02/24 pre-operative evaluation. - check BSG am DOS. - cardiology office visit 08/14/23 [place]: "...Type 2 Diabetes Mellitus, Sleep Apnea, Dyslipidemia, Nephrolithiasis, Pulmonary Nodules, Osteoporosis, DJD s/p R TKA, Longstanding Palpitations (which initially started > 20 years ago), PVC's, PAC's, PSVT, Interstitial Lung Disease on CXR 04/2022, and Rheumatoid Arthritis -- who presents today for Cardiologic Follow-up...complains of significant fatigue which has become chronic, she plays out early, and she does have significant pain with her knees and back...I suspected a lot of fatigue is related to her rheumatoid arthritis. Additionally patient is now chronically on Prednisone 2 mg daily. The adrenal cortex generally secretes between 5 and 7 mg of cortisol per day so her current dose may be subphysiologic...doing well from a cardiac standpoint..rarely experiences palpitations but overall they are well controlled on her current regimen. Patient has not experienced any angina pectoris or anginal equivalent symptoms, overt signs or symptoms of heart failure, nor has she had any symptoms suggestive of a sustained dysrhythmia. She has not had any neurologic symptoms suggestive of stroke or mini stroke...does not experience claudication with her day-to-day activities...compliant with her medications and she has not had any adverse side effects...blood pressure is well controlled, and her palpitations are minimal on her current regimen..." - Outpatient joint assessment: Patient is currently scheduled for inpatient pathway. If re-evaluated and patient/surgeon requests outpatient pathway, patient is not recommended candidate for outpatient joint program from anesthesia standpoint. Chart Review Chart Review: Pending: Refer to Additional Notes / Consult section and Patient seen in Pre Admission Testing Teaching & Discussion Pre-Anesthesia Teaching/Discussion Notes: Instructed NPO after midnight before surgery, except medications with 15 cc of water. Medication instructions provided according to the PAT guidelines. History Surgery Operation Date: 01/07/24 07:15 Proposed Procedures p Left Total Knee Arthroplasty - Tristin Garza MD Height/Weight Height: 5 ft 2 in Weight: 99.7 kg Allergies Allergy/AdvReac Type Severity Reaction Status Date / Time lisinopril Allergy Unknown COUGH Verified 11/27/23 10:16 bupropion [From Wellbutrin] AdvReac Unknown nightmares Verified 11/27/23 10:16 tramadol [From Ultram] AdvReac Unknown NIGHTMARES Verified 11/27/23 10:16 Medications Home Medications Medication Instructions Recorded Confirmed Last Taken jisurnolcihm-nqwrdxow-ktvdx acid 1 cap PO QAM 08/19/18 11/27/23 04/08/23 400 mcg-vitamin K 80 mcg capsule (Multi For Her 50 Plus) psyllium husk 0.4 gram capsule 0.4 g PO UD PRN Constipation 08/19/18 11/27/23 04/08/23 (Metamucil) acetaminophen 500 mg tablet 1,000 mg (2 x 500 mg) PO Q8H PRN 09/08/18 11/27/23 09/05/22 (Tylenol Extra Strength) pain #90 tabs solifenacin 5 mg tablet (Vesicare) 5 mg PO QPM 10/07/19 11/27/23 04/08/23 cholecalciferol (vitamin D3) 25 1,000 unit PO QAM 08/06/22 11/27/23 09/04/22 mcg (1,000 unit) tablet (Vitamin D3) metoprolol succinate 50 mg 50 mg PO HS #90 tabs 02/24/23 11/27/23 04/08/23 tablet,extended release 24 hr albuterol sulfate 90 mcg/actuation 2 puff inhalation Q6H PRN 03/06/23 11/27/23 Unknown aerosol inhaler shortness of breath #8.5 grams diltiazem HCl 180 mg 180 mg PO QAM #90 caps 05/26/23 11/27/23 Unknown capsule,extended release 24 hr venlafaxine 75 mg capsule,extended 75 mg PO QAM #90 caps 07/11/23 11/27/23 Unknown release 24 hr metformin 500 mg tablet,extended 500 mg PO QAM #180 tabs 09/10/23 11/27/23 Unknown release 24 hr methylprednisolone 4 mg tablet 2 mg (1/2 x 4 mg) PO QAM #45 tabs 09/17/23 11/27/23 Unknown biotin 1 mg capsule 1 mg PO BID 10/16/23 11/27/23 Unknown hydroxychloroquine 200 mg tablet 200 mg PO BID 11/05/23 11/27/23 Unknown simvastatin 10 mg tablet 10 mg PO QPM #90 tabs 11/26/23 11/27/23 Unknown levothyroxine 137 mcg tablet 137 mcg PO QAM 11/27/23 11/27/23 Unknown nitrofurantoin 100 mg PO BID 5 days #10 caps 12/10/23 Unknown monohydrate/macrocrystals 100 mg capsule (Macrobid) Past Medical History Medical History (Updated 12/10/23 @ 10:50 by Lamar Pelayo PA-C) Carpal tunnel syndrome on both sides Dyspnea on exertion occasional, chronic x 1 year-notes worsening after having COVID 10/2023 Heart palpitations History of anesthesia reaction with knee replacement-"could hear everything clear as day, could not feel any pain, did not last long." She notes did very well without any awareness for hip replacement History of colon polyps History of COVID-19 10/2023-fatigue persists, no other symptoms History of kidney stones passed on own Hypertension patient denies, states metoprolol is for palpitations, follows with Jake Toribio Hypertriglyceridemia Hypothyroidism Inflammatory arthritis Interstitial lung disease noted in records, patient denies Osteoarthritis Osteoporosis PAC (premature atrial contraction) PSVT (paroxysmal supraventricular tachycardia) follows with Jake Toribio Pulmonary nodules PVC's (premature ventricular contractions) follows with Jake Toribio Rheumatoid arthritis Sleep apnea CPAP-compliant Type 2 diabetes mellitus NIDDM Patient denies h/o stroke, seizures, heart attack, heart failure, blood clots/DVTs or blood transfusions. Past Family History Family History Grandmother (Maternal) Diabetes Grandmother (Paternal) Diabetes Uncle Colorectal cancer Aunt Colorectal cancer Father COPD (chronic obstructive pulmonary disease) Smoker Mother Breast cancer Aunt Breast cancer Aunt Pancreatic cancer Other No family history of adverse response to anesthesia Denies family history of Ovarian cancer Prostate cancer Myocardial infarction Past Surgical History Surgical History H/O left cataract extraction (04/2023) History of colonoscopy History of cystoscopy History of esophagogastroduodenoscopy (EGD) History of total left hip arthroplasty History of total right knee replacement (TKR) Hx of breast biopsy left--benign Hx of right cataract extraction (04/2023) Hx of shoulder replacement left Past Anesthesia History No Family Hx of Anesthesia Complications and Other (see above) History of PONV No Hx of PONV and No Hx of Motion Sickness Social History Smoking Status: Never smoker Do You Dip or Chew Tobacco: No Hx Alcohol Use: No Hx Substance Use: No substance use type: does not use Review of Systems Patient denies chest pain, reflux, fever, chills, cough, wheezing, or palpitations. Physical Exam Vital Signs Vitals BP 136/80 P 67 TEMP 98.4 SP02 96% on RA RESP 18 Physical Patient resting comfortably in chair in no acute distress, alert and oriented, responding appropriately throughout visit Full cervical extension range of motion without pain TMD < 3 finger breadths Mallampati Score 2 Dentition: intact, denies chipped or loose teeth, caps/crowns, implants or bridges Lungs: normal respiratory effort. Good air movement, clear throughout to auscultation, no adventitious breath sounds Cardiac: regular rate and rhythm, no murmurs noted Carotid arteries: negative bruit bilat Lab Results Anesthesia Preop Results Results Anesthesia Widget: WBC 15.48 K/ul (4.8-10.8) H 12/10/23 Hgb 13.7 g/dl (12.0-16.0) 12/10/23 Hct 42.0 % (37.0-47.0) 12/10/23 Plt 252 K/uL (130-400) 12/10/23 Na 141 mmol/L (136-145) 12/10/23 K 4.0 mmol/L (3.5-5.1) 12/10/23 Cl 103 mmol/L (98-107) 12/10/23 CO2 31 mmol/L (21-32) 12/10/23 BUN 21 mg/dl (6-23) 12/10/23 Creat 0.71 mg/dl (0.6-1.2) 12/10/23 Glucose Level 151 mg/dl (70-99(Fasting)) H 12/10/23 POC Glucose 139 mg/dl (70-99) H 10/17/23 PT 10.9 Seconds (9.0-12.0) 12/10/23 PTT 24 Seconds (21-31) 12/10/23 INR 1.0 (0.9-1.1) 12/10/23 HA1c 7.0 % (4.5-5.6) H 10/17/23 Urine Color Yellow 12/10/23 Urine Appearance Cloudy (Clear) A 12/10/23 Urine pH 5.5 (4.5-7.5) 12/10/23 Urine Specific [place] 1.024 (1.000-1.030) 12/10/23 Urine Protein 1+ (Negative) H 12/10/23 Urine Glucose (UA) Negative (Negative) 12/10/23 Urine Ketones Trace (Negative) H 12/10/23 Urine Blood Negative (Negative) 12/10/23 Urine Nitrite Negative (Negative) 12/10/23 Urine Bilirubin Negative (Negative) 12/10/23 Urine Urobilinogen Negative (Negative) 12/10/23 Urine Leukocyte Esterase 2+ (Negative) H 12/10/23 Urine WBC (Auto) 11-20 /hpf (0-5) H 12/10/23 Urine RBC (Auto) 6-10 /hpf (0-2) H 12/10/23 Urine Hyaline Casts (Auto) 0-2 /lpf (0-2) 12/10/23 Urine Epithelial Cells (Auto) 11-20 /hpf (0-2) H 12/10/23 Urine Bacteria (Auto) 2+ (None Seen) H 12/10/23 Blood Type O Positive 12/10/23 Antibody Screen NEGATIVE 12/10/23 Testing Laboratory Results PCP office made aware of abnormal UA. Electrocardiogram Date: 10/16/23 NSR, rate 76 bpm Chest X-Ray Date: 10/16/23 No active disease in the chest. Echocardiogram Date: 08/04/23 EF 65-70% No LV regional wall motion abnormalities Mild cLVH No significant valvular abnormalities Grade I diastolic dysfunction Cervical Spine Date: 12/10/23 Degenerative changes without evidence of acute abnormality.
--- NOTE | 2024-01-05 16:35 | History & Physical Report ---
Date of Service January 05, 2024 Assessment & Plan (1) Osteoarthritis of left knee: Plan: End-stage left knee osteoarthritis. Plan is to proceed with a [employer] knee replacement like she had on the contralateral knee. Osteoarthritis type: primary Qualified Code(s): M17.12 - Unilateral primary osteoarthritis, left knee (2) Status post right knee replacement: History of Present Illness Chief Complaint: Left knee pain Primary Care Provider: Megan Murphy DO 78-year-old female with end-stage arthritis of her left knee presents for knee replacement surgery. History of right knee replacement 02/05/2017 Patient denies headaches, sweats, fevers, chills, double vision, blurred vision, cough, sore throat, dysphagia, sob at rest, wheezing, n/v/d/c, numbness, tingling, fatigue, urinary symptoms. ROS positive for irregular heartbeat, chest pain, PSVT, PVCs, sleep apnea on CPAP, depression, testing of cardiac situation at [facility] including echocardiogram and stress test, shortness of breath climbing up flight of stairs or walking up a hill, treatment for diabetes and hypothyroidism, inflammatory arthritis including spine, prior treatment of kidney stones. Allergies Allergy/AdvReac Type Severity Reaction Status Date / Time lisinopril Allergy Unknown COUGH Verified 12/19/23 13:03 bupropion [From Wellbutrin] AdvReac Unknown nightmares Verified 12/19/23 13:03 tramadol [From Ultram] AdvReac Unknown NIGHTMARES Verified 12/19/23 13:03 Home Medications Medication Instructions Recorded Confirmed Type vjnkmexwzpdw-demzmnlq-pjvhj acid 1 cap PO QAM 08/19/18 01/02/24 History 400 mcg-vitamin K 80 mcg capsule (Multi For Her 50 Plus) psyllium husk 0.4 gram capsule 0.4 g PO UD PRN Constipation 08/19/18 01/02/24 History (Metamucil) acetaminophen 500 mg tablet 1,000 mg (2 x 500 mg) PO Q8H PRN 09/08/18 01/02/24 Rx (Tylenol Extra Strength) pain #90 tabs solifenacin 5 mg tablet (Vesicare) 5 mg PO QPM 10/07/19 01/02/24 History cholecalciferol (vitamin D3) 25 1,000 unit PO QAM 08/06/22 01/02/24 History mcg (1,000 unit) tablet (Vitamin D3) metoprolol succinate 50 mg 50 mg PO HS #90 tabs 02/24/23 01/02/24 Rx tablet,extended release 24 hr albuterol sulfate 90 mcg/actuation 2 puff inhalation Q6H PRN 03/06/23 01/02/24 Rx aerosol inhaler shortness of breath #8.5 grams venlafaxine 75 mg capsule,extended 75 mg PO QAM #90 caps 07/11/23 01/02/24 Rx release 24 hr metformin 500 mg tablet,extended 500 mg PO QAM #180 tabs 09/10/23 01/02/24 Rx release 24 hr biotin 1 mg capsule 1 mg PO BID 10/16/23 01/02/24 History hydroxychloroquine 200 mg tablet 200 mg PO BID 11/05/23 01/02/24 History simvastatin 10 mg tablet 10 mg PO QPM #90 tabs 11/26/23 01/02/24 Rx levothyroxine 137 mcg tablet 137 mcg PO QAM 11/27/23 01/02/24 History diltiazem HCl 180 mg 180 mg PO QAM 01/02/24 History capsule,extended release 24 hr methylprednisolone 4 mg tablet 4 mg PO QAM 01/02/24 History Past Med/Surg History Problem List Status post right knee replacement Hypoxia 10/31/23 COVID-19 virus infection 10/16/23 Rheumatoid arthritis Interstitial lung disease History of colon polyps Esophageal dysphagia PAC (premature atrial contraction) PVC's (premature ventricular contractions) Dyspnea on exertion Inflammatory arthritis Carpal tunnel syndrome, right Cervical radicular pain 10/31/23 Type 2 diabetes mellitus Hypertension pt denies PVC (premature ventricular contraction) PSVT (paroxysmal supraventricular tachycardia) PAC (premature atrial contraction) Degenerative joint disease of left hip History of renal stone Depression hx Osteoarthritis Sleep apnea cpap Hypothyroid Osteoporosis Right knee DJD High triglycerides (Chronic) Medical History Interstitial lung disease noted in records, patient denies Pulmonary nodules Osteoporosis Inflammatory arthritis Type 2 diabetes mellitus NIDDM PAC (premature atrial contraction) PVC's (premature ventricular contractions) follows with Kip Catarino PSVT (paroxysmal supraventricular tachycardia) follows with Obiep Catarino Rheumatoid arthritis Osteoarthritis Sleep apnea CPAP-compliant Hypothyroidism Hypertension patient denies, states metoprolol is for palpitations, follows with Jake Gonsalezr Hypertriglyceridemia Dyspnea on exertion occasional, chronic x 1 year-notes worsening after having COVID 10/2023 History of COVID-19 10/2023-fatigue persists, no other symptoms History of colon polyps History of anesthesia reaction with knee replacement-"could hear everything clear as day, could not feel any pain, did not last long." She notes did very well without any awareness for hip replacement History of kidney stones passed on own Heart palpitations Carpal tunnel syndrome on both sides Surgical History H/O left cataract extraction (04/2023) Hx of right cataract extraction (04/2023) History of esophagogastroduodenoscopy (EGD) History of colonoscopy History of cystoscopy History of total left hip arthroplasty Hx of breast biopsy left--benign Hx of shoulder replacement left History of total right knee replacement (TKR) Family History Grandmother (Maternal) Diabetes Grandmother (Paternal) Diabetes Uncle Colorectal cancer Aunt Colorectal cancer Father COPD (chronic obstructive pulmonary disease) Smoker Mother Breast cancer Aunt Breast cancer Aunt Pancreatic cancer Other No family history of adverse response to anesthesia Denies family history of Ovarian cancer Prostate cancer Myocardial infarction Social History Smoking Status: Never smoker Second Hand Exposure: Yes (childhood); Do You Dip or Chew Tobacco: No; Hx Alcohol Use: No Hx Substance Use: No Preferred Language: Swazi Communication Ability: Effective Visual Impairment: No Limitations Hearing Ability: Normal 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 Operator Required: No Beliefs That Will Affect Care: None marital status: Current Living Situation: Spouse 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 How many Children do You have: 3 Feels Safe at Home: Yes Childhood Exposure to Second-Hand Smoke: Yes Diet: regular caffeine: No during the past year weight has: remained stable Dental Care, Regularly: Yes Physical Activity Frequency: Daily Seatbelt Use: always Sunscreen Use: Yes Assistive Devices: Cane and Glasses Review of Systems All systems reviewed & are unremarkable except as noted in HPI & below Physical Exam Constitutional: WD/WN, vitals as above (Obesity) Respiratory: normal respiratory effort; no respiratory distress Cardiovascular: Rate/Rhythm: regular rate and regular rhythm Musculoskeletal: Pain left knee with weightbearing. Varus alignment of the knee. Mild swelling and range of motion 0 through 110 degrees. No pseudolaxity. Right knee 0 to 120 degrees benign scar with stable knee with stable knee replacement components. Distal circulation sensorimotor exam intact. Skin: no rashes, warm and dry Neurologic: normal touch/pain/proprioception Psychiatric: A+Ox3, euthymic affect Results & Data Diagnostic Findings X-rays left knee demonstrate that she has grade 4 medial compartment osteoarthritis grade 3 patellofemoral osteoarthritis. Medial compartment is uxut-fi-ifys with subluxation femur medial on the tibia subchondral sclerosis and osteophytes. Code Status & VTE Plan VTE Prophylaxis Plan VTE Prophylaxis will be ordered: Yes
[~2024-01-07 07:46] MED LIST changes: -ACETAMINOPHEN 500 MG TAB PO SCH; +BUPIVACAINE 0.25% PF 30 ML VIAL ONE; -CEFAZOLIN 2000MG 2,000 MG/15 ML SYR IV SCH; -CeleBREX 200 MG CAP PO SCH; -FAMOTIDINE 20 MG TAB PO SCH; -GABAPENTIN 300 MG PO SCH; -LR 500ML BOLUS, THEN 15ML/HR IV SCH; -MIDAZOLAM HCL 1 MG/ML 2ML VIAL ONE; -ROPIVACAINE 0.5% HCL/PF 150 MG, BUPIVACAINE 0.5% MPF 30 ML, EPINEPHrine 30MG/30ML (OR U... INFIL SCH; -TRANEXAMIC ACID 1,000 MG **IV Intra-op IV SCH; -TRANEXAMIC ACID 1,000 MG **IV Pre-op IV SCH; -dexAMETHasone 4 MG TAB PO SCH; -fentaNYL citrate 100 MCG/2 ML VIAL ONE
[2024-01-07] MEDS: LR 500ML BOLUS, THEN 15ML/HR IV SCH (08:29)
[2024-01-07] MEDS: LR 60ML/HR IV SCH (08:29)
[2024-01-07] MEDS: GABAPENTIN 300 MG CAP PO SCH (08:30)
[2024-01-07] MEDS: FAMOTIDINE 20 MG TAB PO SCH (08:30)
[2024-01-07] MEDS: ACETAMINOPHEN 500 MG TAB PO SCH ×2 (08:30→14:39)
[2024-01-07] MEDS: METOCLOPRAMIDE HCL 10 MG TABLET PO SCH (08:30)
[2024-01-07] MEDS: CeleBREX 200 MG CAP PO SCH (08:30)
[2024-01-07] MEDS ORDERED: PROPOFOL IV EMULSION 10 MG/ML 20 ML VIAL IV ONE ×8 (09:06→11:55)
[2024-01-07] MEDS ORDERED: fentaNYL citrate PF 100 MCG/2 ML VIAL ONE (09:06)
[2024-01-07] MEDS ORDERED: MIDAZOLAM HCL 1 MG/ML 2ML VIAL ONE (09:06)
--- NOTE | 2024-01-07 09:15 | History & Physical Bridge Note ---
Date of Service January 07, 2024 History & Physical Bridge Note I have examined the patient, reviewed the History & Physical and in the interval since the performance of the History & Physical I have noted the following changes of clinical significance: no changes noted
[2024-01-07] MEDS ORDERED: ATROPINE SULFATE 0.1 MG/ML 10ML SYR IV PRN (09:21)
[2024-01-07] MEDS ORDERED: ONDANSETRON INJ 2 MG/ML 2 ML VIAL IV PRN ×2 (09:21→13:16)
[2024-01-07] MEDS ORDERED: ePHEDrine sulfate 50 MG/ML AMP IV PRN (09:21)
[2024-01-07] MEDS ORDERED: fentaNYL citrate PF 100 MCG/2 ML VIAL IV PRN (09:21)
[2024-01-07] MEDS: TRANEXAMIC ACID 1,000 MG **IV Pre-op IV SCH (09:33)
[2024-01-07] MEDS: ceFAZolin 2000MG 2,000 MG/15 ML SYR IV SCH ×2 (09:51→18:18)
[2024-01-07] MEDS: ROPIVACAINE 0.5% HCL/PF 246 MG, Ketorolac (*for OR use only*) 30 MG in SODIUM CHLORIDE ... INFIL SCH (10:36)
[2024-01-07] MEDS: ORTHO JOINT ANESTHETIC ONE (10:37)
[2024-01-07] MEDS ORDERED: PHENYLEPHRINE HCL 10 MG/ML VIAL ONE (11:02)
[2024-01-07] MEDS: TRANEXAMIC ACID 1,000 MG **IV Intra-op IV SCH (11:47)
--- NOTE | 2024-01-07 12:17 | Operative Report ---
Post Operative Report Pre & Post Diagnosis Operation Date: 01/07/24 09:40 Pre-Op Diagnosis: Left Knee Osteoarthritis, obesity BMI 40.2 Post-Op Diagnosis: Left Knee Osteoarthritis, obesity BMI 40.2 I identified the patient and participated in the time-out.: Yes Procedure Operation Date: 01/07/24 09:40 Actual Procedures p Left Total Knee Arthroplasty lateral release. Tristin Garza MD Surgeon Tristin Garza MD Tobacco Sweeper Tim RODRIGUEZ Estimated Blood Loss 5 Findings Consistent with Post-Op Diagnosis Specimens Bone cuts Drains 2 Hemovac Anesthesia Type MAC Spinal Regional Complications none Disposition Disposition: Recovery Room Indications 78-year-old female with severe end-stage osteoarthritis of her left knee failed conservative management. History of successful right knee replacement. Description of Procedure The patient was taken to the operating room and anesthetized under spinal MAC regional block. Patient was placed supine on the the operating table. A pneumatic tourniquet was placed about the obese left upper thigh. The knee exam demonstrated 0 through 130 degrees range of motion. No instability no pseudolaxity. Varus knee with tight medial compartment. Patella laterally aligned. The involved leg was elevated exsanguinated with Esmarch bandage and the pneumatic tourniquet was raised to 325 millimeters mercury. A longitudinal incision was made across the anterior knee. Skin flaps were elevated. An incision was made into the medial retinaculum and extended up into the mid third of the quadriceps tendon and extended down to the tibial tubercle. Intra- articular findings demonstrated tricompartmental osteoarthritis with large radial tear posterior horn medial meniscus and [id number] medial compartment with an anterior medial eburnation. Intact cruciate ligaments.. The knee was exposed by excising cruciate ligaments and menisci. The infrapatellar fat pad was resected. The fat pad over the anterior femur at the upper aspect of the articular surface was resected for placement of the component in that area. A subperiosteal peel lateral release was performed around the patella. The Summers & Nephew journey 2.0 posterior stabilized total knee arthroplasty system was utilized for the procedure. The custom femoral cutting guide was pinned in position. The distal femoral cut was made. The size 4, 5 in 1 cutting block was placed. The anterior posterior and chamfer cuts were made. The knee was extended and a free hand cut technique was performed to the patella. The patella width was measured and the width was reproduced using a 29 symmetrical patella component. The excess lateral facet was beveled off to prevent any impingement. 3 drill holes are made for the patella component pegs. The tibia was then subluxed. The custom tibial cutting block was pinned in position and the proximal tibial cut was made with the oscillating saw. Flexion and extension gaps were balanced. Medial and posterior medial releases were required including releasing the semimembranosus. The size 3 tibial trial was externally rotated in line with the tibial tubercle and pinned in position. The punch for the stem was used. The femoral trial was inserted and centered the notch cutting devices were used and the collet was placed. Tibial trials were used for the insert. The size 13 trial gave balanced ligaments through full range of motion. Patella tracking was assessed with range of motion. The patella tracked laterally still so I did a lateral release leaving the synovium intact and the patella tracked centrally. The trials were removed. The Orthomix anesthetic cocktail was injected per protocol. The cut bone surfaces and soft tissue were copiously irrigated with pulsatile lavage saline solution. The final components were cemented with Refobacin cement. The final components were Summers & Nephew journey 2.0 size 4 left femoral component, left tibial component with a 13 mm posterior stabilized tibial polyethylene and a 29 mm polyethylene symmetrical patella component. Xperience irrigation was placed over metal tray prior to polyethyle insertion. After the cement cured, the knee was then copiously irrigated with pulsatile lavage Xperience solution. 2 drains were brought out laterally connected to Hemovac. The quadriceps tendon and medial retinaculum were closed with #2 FiberWire at the apex of the proximal split in the quad tendon and three #2 FiberWire's around the medial retinaculum distal quad tendon and 1 over the joint level. A 0 strata fix running locking suture was placed from the superior quad tendon split down to the inferior pole patella repairing the quad tendon and medial retinaculum. The distal medial retinaculum was repaired with 0 to [id number] #1 Vicryl sutures. The knee was taken through full range of motion and repair was secure. Knee range of motion was 0 through 130 degrees. the subcutaneous tissues were closed with 2-0 Vicryl sutures. The skin was closed with 3-0 strata fix subcuticular suture followed by Prineo glue system. A Silverlon dressing was applied. The tourniquet was let down and the patient had good capillary refill to the extremity. The patient tolerated the procedure well. My physician process assistant Tim RODRIGUEZ participated as mobile sales assistant and was integral part in all aspects of the procedure including prepping, draping, leg positioning, soft tissue retraction, instrument management and assisted in the closure , and will participate in postoperative care the patient. I attest to the content of the Intraoperative Record and any orders documented therein. Any exceptions are noted below.
--- NOTE | 2024-01-07 12:47 | XRay Report ---
TWO VIEWS LEFT KNEE CLINICAL HISTORY: Postoperative examination. FINDINGS: AP and crosstable lateral portable views of the left knee are obtained. A left knee arthrop lasty is in near anatomic alignment. There has been undersurface remodeling of the patella. No acute fracture is seen. There are expected postoperative changes around the knee including a surgical drain , soft tissue edema, and subcutaneous gas. IMPRESSION: Expected postoperative changes status post left knee arthroplasty. No acute fracture is s een. ACT 112: Negative or not required by law. Electronically signed by: Avery Bailon M.D. 01/07/2024 12:46 PM
[2024-01-07] MEDS: SODIUM CHLORIDE 0.9% 1,000 ML IV SCH (13:16)
[2024-01-07] MEDS ORDERED: KETOROLAC TROMETHAMINE 15 MG/ML VIAL IV PRN (13:16)
[2024-01-07] MEDS ORDERED: HYDROmorphone INJ 0.5 MG/0.5 ML SYR IV PRN (13:16)
[2024-01-07] MEDS ORDERED: ALUMINUM/MAGNESIUM SUSP 30 ML UDC PO PRN (13:16)
[2024-01-07] MEDS ORDERED: PHARMACY GLYCEMIC MGMT CONSULT PRN (13:16)
[2024-01-07] MEDS ORDERED: METOCLOPRAMIDE HCL INJ 5 MG/ML 2 ML VIAL IV PRN (13:16)
[2024-01-07] MEDS ORDERED: bisacodyL 10 MG SUPP PR PRN (13:16)
[2024-01-07] MEDS ORDERED: PSYLLIUM or GUAR GUM FIBER 4GM PACKET PO PRN (13:16)
[2024-01-07] MEDS ORDERED: NALOXONE HCL 0.4 MG/1 ML VIAL/CARP IV PRN (13:16)
[2024-01-07] MEDS ORDERED: diphenhydrAMINE Capsule 25 MG CAP PO PRN (13:16)
[2024-01-07] MEDS ORDERED: MAGNESIUM HYDROXIDE SUSP 30 ML UDC PO PRN (13:16)
[2024-01-07] MEDS ORDERED: ALBUTEROL HFA 8 GM INHALER INH PRN (13:16)
--- NOTE | 2024-01-07 13:25 | Anesthesiology Progress Note ---
Date of Service January 07, 2024 Anesthesia Post Procedure Vital Signs Vital Signs: Temp Pulse Pulse Resp BP Pulse Ox O2 Del Method 01/07/24 13:16 36.5 C 61 16 119/72 95 Room Air 01/07/24 13:00 60 20 116/62 98 Room Air 01/07/24 12:50 36.4 C L 61 14 104/68 95 Room Air 01/07/24 12:40 61 19 102/54 L 93 Room Air 01/07/24 12:30 62 22 96/56 L 100 Oxymask 01/07/24 12:22 36.3 C L 65 20 102/56 L 98 Oxymask 01/07/24 08:20 36.4 C L 78 20 149/83 H 95 Room Air O2 Flow Rate 01/07/24 13:16 01/07/24 13:00 01/07/24 12:50 01/07/24 12:40 01/07/24 12:30 7 01/07/24 12:22 7 01/07/24 08:20 Transfer of Care Handoff Completed per policy Notes Mental Status: alert / awake / arousable Patient Amnestic to Procedure: Yes Nausea / Vomiting: adequately controlled Pain: adequately controlled Airway Patency, RR, SpO2: stable & adequate BP & HR: stable & adequate Hydration State: stable & adequate Neuraxial Anesthesia: was administered and sensory block is resolving Anesthetic Complications: no major complications apparent and Pt Satisfied with anesthetic care
--- NOTE | 2024-01-07 14:18 | Hospitalist Consultation ---
Date of Consultation January 07, 2024 Assessment & Plan (1) Status post right knee replacement: p Left Total Knee Arthroplasty lateral release. Tristin Garza MD EBL 5cc IVF/abx,pain control, bowel regimen, PT/OT per primary service DVT proph: ASA 81mg BID per primary service. BP borderline hypotensive with surgery and lightheaded/dizzy w/ ambulation to bathroom and steroid dependent. Did get medrol 2mg this morning before coming in but will schedule 50mg IV hydrocortisone q8h overnight and if stable/improved can continue usual 2mg medrol for tomorrow but may need to extend. Did ask microbiology lab assistant to notify pharmacy of IV steroids ordered given consulted for glycemic management Monitor labs in AM (2) Rheumatoid arthritis: continue hydroxychloroquine BID. On medrol 2mg daily but BP 111/74 and 95/56 with surgery and given symptoms w/ ambulation will schedule solumedrol IV 50mg q8h for 24hr and can resume medrol PO in am or continue if needing pending repeat BP (3) Interstitial lung disease: 2nd to RA. plaquenil continued. Did have recent COVID infection in October earlier this year with slow recovery but on room air. Albuterol HFA as needed, stress dose steroids as outlined, incentive spirometry (in room) encouraged (4) Inflammatory arthritis: (5) Type 2 diabetes mellitus: pharmacy consulted for glycemic management, appreciated (6) Sleep apnea: CPAP HS ordered (7) Hypothyroid: Chronic/stable Continue Synthroid 137mcg daily Plan Thank you for allowing hospitalist service to participate in the care of Ms Brit palomino. Hospitalist service will follow along/monitor AM labs. Please call with any questions/concerns. Supervising Physician Co-Signing Physician Notes The patient was seen by me. The chart was reviewed. Case discussed with JENNIFER Griffith. Agree with assessment and plan History of Present Illness Reason for Consultation: medical management Requesting Physician: Dr Garza Attending Physician: Tristin Garza MD History of Present Illness 78 yo female with PMHx significant for Rheumatoid Arthritis, HTN, PSVT, DM presented for LEFT total knee arthroplasty with Dr Garza this morning. EBL 5cc Evaluated in 324, son and in room. Just got back from bathroom with nursing to urinate. Pain present but controlled and just sore. Reports taking her diltiazem this morning as directed by cardiology prior to surgery this morning and took her metoprolol last evening. On room air. Does report feeling a little lightheaded/dizzy when coming back from the bathroom and discussed borderline BPs but chronic steroid use and follows with Dr Mcpherson from Rheumatology for her RA and on Plaquenil but also on medrol 2mg daily which she did take this morning but will plan for 24 hours solumedrol 50mg IV q8h and monitor. Moved bowels yesterday, no issues with constipation. No hx DVT/PE. Notable did have COVID infection this summer but stable recovery albeit slowly. No fever/chills, no CP/SOB, no palpitations, nausea/vomiting/abdominal pain at this time. and son updated at bedside. Questions/concerns addressed at this time. Allergies Allergy/AdvReac Type Severity Reaction Status Date / Time lisinopril Allergy Unknown COUGH Verified 01/07/24 08:20 bupropion [From Wellbutrin] AdvReac Unknown nightmares Verified 01/07/24 08:20 tramadol [From Ultram] AdvReac Unknown NIGHTMARES Verified 01/07/24 08:20 Home Medications Medication Instructions Recorded Confirmed Type iopvdteoqghc-fzqgbmyl-dbofi acid 1 cap PO QAM 08/19/18 01/07/24 History 400 mcg-vitamin K 80 mcg capsule (Multi For Her 50 Plus) psyllium husk 0.4 gram capsule 0.4 g PO UD PRN Constipation 08/19/18 01/07/24 History (Metamucil) acetaminophen 500 mg tablet 1,000 mg (2 x 500 mg) PO Q8H PRN 09/08/18 01/07/24 Rx (Tylenol Extra Strength) pain #90 tabs solifenacin 5 mg tablet (Vesicare) 5 mg PO QPM 10/07/19 01/07/24 History cholecalciferol (vitamin D3) 25 1,000 unit PO QAM 08/06/22 01/07/24 History mcg (1,000 unit) tablet (Vitamin D3) metoprolol succinate 50 mg 50 mg PO HS #90 tabs 02/24/23 01/07/24 Rx tablet,extended release 24 hr albuterol sulfate 90 mcg/actuation 2 puff inhalation Q6H PRN 03/06/23 01/07/24 Rx aerosol inhaler shortness of breath #8.5 grams metformin 500 mg tablet,extended 500 mg PO QAM #180 tabs 09/10/23 01/07/24 Rx release 24 hr biotin 1 mg capsule 1 mg PO BID 10/16/23 01/07/24 History hydroxychloroquine 200 mg tablet 200 mg PO BID 11/05/23 01/07/24 History simvastatin 10 mg tablet 10 mg PO QPM #90 tabs 11/26/23 01/07/24 Rx levothyroxine 137 mcg tablet 137 mcg PO QAM 11/27/23 01/07/24 History diltiazem HCl 180 mg 180 mg PO QAM 01/02/24 01/07/24 History capsule,extended release 24 hr (Cardizem CD) methylprednisolone 4 mg tablet 2 mg PO QAM 01/02/24 01/07/24 History (Medrol) venlafaxine 75 mg capsule,extended 75 mg PO QAM 01/07/24 01/07/24 History release 24 hr (Effexor XR) Patient History Medical History Interstitial lung disease noted in records, patient denies Pulmonary nodules Osteoporosis Inflammatory arthritis Type 2 diabetes mellitus NIDDM PAC (premature atrial contraction) PVC's (premature ventricular contractions) follows with Kip Catarino PSVT (paroxysmal supraventricular tachycardia) follows with Kip Catarino Rheumatoid arthritis Osteoarthritis Sleep apnea CPAP-compliant Hypothyroidism Hypertension patient denies, states metoprolol is for palpitations, follows with Kip Catarino Hypertriglyceridemia Dyspnea on exertion occasional, chronic x 1 year-notes worsening after having COVID 10/2023 History of COVID-19 10/2023-fatigue persists, no other symptoms History of colon polyps History of anesthesia reaction with knee replacement-"could hear everything clear as day, could not feel any pain, did not last long." She notes did very well without any awareness for hip replacement History of kidney stones passed on own Heart palpitations Carpal tunnel syndrome on both sides Surgical History H/O left cataract extraction (04/2023) Hx of right cataract extraction (04/2023) History of esophagogastroduodenoscopy (EGD) History of colonoscopy History of cystoscopy History of total left hip arthroplasty Hx of breast biopsy left--benign Hx of shoulder replacement left History of total right knee replacement (TKR) Family History Grandmother (Maternal) Diabetes Grandmother (Paternal) Diabetes Uncle Colorectal cancer Aunt Colorectal cancer Father COPD (chronic obstructive pulmonary disease) Smoker Mother Breast cancer Aunt Breast cancer Aunt Pancreatic cancer Other No family history of adverse response to anesthesia Denies family history of Ovarian cancer Prostate cancer Myocardial infarction Social History Smoking Status: Never smoker Second Hand Exposure: Yes (childhood); Do You Dip or Chew Tobacco: No; Tobacco Cessation Education Requested by Patient: No Hx Alcohol Use: No Hx Substance Use: No Preferred Language: Yemeni Communication Ability: Effective Visual Impairment: No Limitations Hearing Ability: Normal Stacker Straightener Required: No Beliefs That Will Affect Care: None marital status: Current Living Situation: Spouse 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 How many Children do You have: 3 Other Information That Helps Us Care for You: No Feels Safe at Home: Yes Safety Concerns: Feels Safe At This Time Childhood Exposure to Second-Hand Smoke: Yes Diet: regular caffeine: No during the past year weight has: remained stable Dental Care, Regularly: Yes Physical Activity Frequency: Daily Seatbelt Use: always Sunscreen Use: Yes Assistive Devices: Cane and Glasses Review of Systems 2 Review of Systems: All systems reviewed & are unremarkable except as noted in HPI & below Physical Exam Physical Exam: General: 78yo female sitting up in bed, just got back from using the bathroom, NAD, family in room HEENT: head atraumatic, normocephalic, mmm, trachea midline Resp: even/unlabored, no significant wheezing/rales, on room air CV: RRR, rates 60s, no significant mrg, trace pedal edema but perfused/pulses present and calves nontender GI: +BS, soft/NT : no logan MSK/Neuro: dressing to LEFT knee c/d/i, ALPHONSO wrap in place with ice pack, hemovac with ~40cc bloody drainage Psych: AOx3, cooperative with exam Results & Data Results & Data Vital Signs (Past 12 Hours) Vital Signs Temp Pulse Pulse Resp BP Pulse Ox O2 Del Method 01/07/24 13:55 62 16 111/74 96 Room Air 01/07/24 13:45 58 L 16 123/73 99 Room Air 01/07/24 13:16 36.5 C 61 16 119/72 95 Room Air 01/07/24 13:00 60 20 116/62 98 Room Air 01/07/24 12:50 36.4 C L 61 14 104/68 95 Room Air 01/07/24 12:40 61 19 102/54 L 93 Room Air 01/07/24 12:30 62 22 96/56 L 100 Oxymask 01/07/24 12:22 36.3 C L 65 20 102/56 L 98 Oxymask 01/07/24 08:20 36.4 C L 78 20 149/83 H 95 Room Air O2 Flow Rate 01/07/24 13:55 01/07/24 13:45 01/07/24 13:16 01/07/24 13:00 01/07/24 12:50 01/07/24 12:40 01/07/24 12:30 7 01/07/24 12:22 7 01/07/24 08:20 Laboratory Results 01/07/24 01/07/24 Range/Units 12:28 08:13 POC Glucose 123 H 130 H (70-99) mg/dl Diagnostic Findings Knee X-Ray 01/07/24 12:25 TWO VIEWS LEFT KNEE CLINICAL HISTORY: Postoperative examination. FINDINGS: AP and crosstable lateral portable views of the left knee are obtained. A left knee arthroplasty is in near anatomic alignment. There has been undersurface remodeling of the patella. No acute fracture is seen. There are expected postoperative changes around the knee including a surgical drain, soft tissue edema, and subcutaneous gas. IMPRESSION: Expected postoperative changes status post left knee arthroplasty. No acute fracture is seen. ACT 112: Negative or not required by law. Electronically signed by: Avery Bailon M.D. 01/07/2024 12:46 PM PG Care Time/CCT Total # of Minutes Spent Total Time Spent with Patient: Total time spent is greater than 50% in coordination of care (as documented) at patient's floor/unit and/or counseling patient: Coding Level of Care Code 28149 IN/OBS CONSULT LVL 3,45M Diagnoses Status post right knee replacement Z96.651 Rheumatoid arthritis M06.9 Interstitial lung disease J84.9 Inflammatory arthritis M19.90 Type 2 diabetes mellitus E11.9 Sleep apnea G47.30 Hypothyroid E03.9
--- NOTE | 2024-01-07 14:29 | Pharmacy Report ---
Pharmacy Glycemic Short Note 2 - Date of Service January 07, 2024 - Glycemic Short BSG Results (Last 24 hours): 01/07/24 01/07/24 08:13 12:28 POC Glucose 130 H 123 H OUTPATIENT ANTIDIABETIC REGIMEN: * Metformin XR 500mg po QAM HbA1c: 7% on 10/17/23 ASSESSMENT: * 78 year old female s/p right knee replacement. Pharmacy has been consulted for glycemic monitoring postop. * Patient is on chronic steroids at home (methylprednisolone 2mg po q AM). * BSG 130mg/dL and 123mg/dL today and only on metformin at home so will not order basal insulin * Will order conservative bolus insulin dosing since BSG within goal range currently. PLAN FOR INPATIENT GLYCEMIC CONTROL: * Hold outpatient oral diabetes medications * Basal insulin * none * Bolus insulin * NovoLog per scale ACHS or Q6hrs while NPO * Goal Range: Low 110 mg/dL - High 140 mg/dL * Correction Factor: 30 mg/dL/unit * Nutritional / Prandial insulin per carb ratio of 1 unit per 10 grams CHO consumed
[2024-01-07] MEDS: HYDROCORTISONE SOD 50 MG in SYRINGE 0 ML IV SCH (14:39)
[2024-01-07 16:34] VITALS: RESP 18
[2024-01-07] MEDS: TRANEXAMIC ACID / 0.7% NACL 1,000 MG/100 ML BAG IV SCH (18:09)
[2024-01-07] MEDS: INSULIN ASPART PER UNIT CHARGE SC SCH ×2 (18:16→23:23)
[2024-01-07] MEDS ORDERED: NON-FORMULARY MEDICATION (Biotin 1 mg Capsule) PO SCH (21:00)
[2024-01-07] MEDS: SIMVASTATIN 10 MG TAB PO SCH (21:10)
[2024-01-07] MEDS: METOPROLOL SUCC 50MG EXT REL TAB PO SCH (21:10)
[2024-01-07] MEDS: HYDROXYCHLOROQUINE SULFATE 200 MG TAB PO SCH (21:10)
[2024-01-07] MEDS: ASPIRIN 81 MG ECTAB PO SCH (21:11)
[2024-01-07] MEDS: OXYBUTYNIN CHLORIDE XL 5 MG TABCR PO SCH (21:11)
[2024-01-07] MEDS: SENNA 8.6 MG TAB PO SCH (21:16)
[2024-01-07] MEDS: DOCUSATE SODIUM 100 MG CAP PO SCH (21:16)
[2024-01-08] MEDS: oxyCODONE HCL IR 5 MG TAB (IMMEDIATE RELEASE) PO PRN (02:27)
[2024-01-08] MEDS ORDERED: Nursing to Pharmacy Communication SCH (03:30)
[2024-01-08] MEDS: LEVOTHYROXINE SODIUM 137 MCG TABLET PO SCH (05:40)
[2024-01-08 06:33] LABS: Hematocrit (blood only) 35.5 % (37.0-47.0); Hemoglobin 11.6 g/dl (12.0-16.0); Mean Corpuscular Hemoglobin 30.9 pg (25.0-34.0); Mean Corpuscular Hgb Conc 32.7 g/dL (32.0-36.0); Mean Corpuscular Volume 94.4 fL (80.0-100.0); Mean Platelet Volume 9.3 fL (9.4-12.4); Platelet Count 203 K/uL (130-400); RDW Coefficient of Variation 14.6 % (11.5-14.5); RDW Standard Deviation 50.8 fL (36.4-46.3); Red Blood Count 3.76 M/uL (4.20-5.40); White Blood Count 12.02 K/ul (4.8-10.8)
[2024-01-08 07:04] LABS: Calcium 8.6 mg/dl (8.6-10.3); Magnesium 1.7 mg/dl (1.7-2.4); Potassium 3.8 mmol/L (3.5-5.1)
[2024-01-08 07:10] LABS: BUN Creatinine Ratio 22.2 (10-20); Creatinine Clr Calc Pharmacy 83.9 ml/min
--- NOTE | 2024-01-08 07:50 | Orthopedic Progress Note ---
Date of Service January 08, 2024 Assessment & Plan (1) Osteoarthritis of left knee: Plan: End-stage left knee osteoarthritis. Status post Summers & Nephew journey knee replacement postop day 1. Patient doing well and discharge plan is for home health and home PT. If this can be set up today she can be discharged home after physical therapy. Hemovac drain can be pulled prior to discharge if drainage continues to be low. Maintain Silverlon dressing. Patient has follow- up in office in 2 weeks for wound check. (2) Status post right knee replacement: Admission and Anticipated Discharge Date Admission Date: January 07, 2024 Subjective Good pain relief patient doing well. No complaints. Review of Systems Review of Systems: No chest pain shortness of breath or any medical issues. Physical Exam Musculoskeletal: Left lower extremity distal circulation sensorimotor exam intact and independent straight leg raise. Dressing dry and intact. Minimal drainage from Hemovac drain. Results & Data Vital Signs (Past 12 Hours) Vital Signs Temp Pulse Resp BP Pulse Ox O2 Del Method 01/08/24 07:20 Room Air, CPAP 01/08/24 02:33 36.7 C 75 18 162/77 H 96 Room Air 01/08/24 00:14 CPAP 01/07/24 23:00 36.4 C L 71 18 121/75 93 Room Air Laboratory Results Hemoglobin 11.6 hematocrit 35.5. Only 60 cc drainage Hemovac. Diagnostic Findings Well aligned left total knee replacement on postop x-rays. (1) Osteoarthritis of left knee Osteoarthritis type: primary Qualified Code(s): M17.12 - Unilateral primary osteoarthritis, left knee
--- NOTE | 2024-01-08 07:57 | Hospitalist Progress Note ---
Date of Service January 08, 2024 Assessment & Plan (1) Status post right knee replacement: Plan: p Left Total Knee Arthroplasty lateral release. Tristin Garza MD EBL 5cc IVF/abx,pain control, bowel regimen, PT/OT per primary service DVT proph: ASA 81mg BID per primary service. Hydrocortisone IV for stress dosing 24hours in patient w/ steroid dependence and lightheaded/dizzy post-op w/ BP hypotensive post op and IMPROVED/RESOLVED and no further symptoms and BP 138/77 today and continues on usual medrol 2mg daily. WBC elevation suspected 2nd to surgery/steroids. Afebrile. no fever/chills Hgb 12.9--> 11.6, acute blood loss anemia from surgery/hemovac output suspected as well as some dilutional aspect from IVF PT/OT consults pending, patient hopeful for discharge today per primary service (2) Rheumatoid arthritis: Plan: continue hydroxychloroquine BID. On medrol 2mg daily but BP 111/74 and 95/56 with surgery and given symptoms w/ ambulation was given solumedrol 50mg IV q8h x 3 doses and resumed home medrol for today as above (3) Interstitial lung disease: Plan: 2nd to RA. plaquenil continued. Did have recent COVID infection in October earlier this year with slow recovery but on room air. Albuterol HFA as needed, stress dose steroids as outlined, incentive spirometry (in room) encouraged and lungs CTA and 94% on RA without SOB reported (4) Inflammatory arthritis: Plan: as above (5) Type 2 diabetes mellitus: Plan: pharmacy consulted for glycemic management, appreciated and now back on home steroid dose (6) Sleep apnea: Plan: CPAP HS ordered (7) Hypothyroid: Plan: Chronic/stable Continue Synthroid 137mcg daily Plan Thank you for allowing hospitalist service to participate in the care of Ms Morris. Hospitalist service will sign off at this time. Please call with any questions/concerns. Admission and Anticipated Discharge Date Admission Date: January 07, 2024 Supervising Physician Co-Signing Physician Notes The patient was not seen by me. The chart was reviewed. Case discussed with JENNIFER Griffith. Agree with assessment and plan Subjective Evaluated this morning, just got done working with therapy, a little fatigued/sore from such but pain controlled/no need for anything at this time. No further lightheaded/dizziness, back on home medrol and BP 138/77. SpO2 94%, no SOB/CP. Passing gas, belly grumbling and +BS throughout but no BM but feels like something coming. Did get bowel regimen this morning. Reports Dr Garza in this morning, emptied drain and hopefully able to remove this afternoon before dc but will need to monitor output. No fever, chills. Hopeful for dc today. Questions/concerns addressed at this time. Physical Exam Physical Exam: General: 78yo female sitting up at the side of the bed, just finished working with therapy, NAD HEENT: head atraumatic, normocephalic, mmm, trachea midline Resp: even/unlabored, no significant wheezing/rales, on room air 94% CV: RRR, rates 60s-70s, no significant mrg, trace pedal edema but perfused, calves nontender and pulses present. GI: +BS throughout, slight distension but nontender, no guarding/rebound : no logan MSK/Neuro: dressing to LEFT knee c/d/i, ALPHONSO wrap in place with ice pack, hemovac with ~50-60cc bloody drainage Psych: AOx3, cooperative with exam Results & Data Results & Data Vital Signs (Past 12 Hours) Vital Signs Temp Pulse Resp BP Pulse Ox O2 Del Method 01/08/24 07:20 Room Air, CPAP 01/08/24 02:33 36.7 C 75 18 162/77 H 96 Room Air 01/08/24 00:14 CPAP 01/07/24 23:00 36.4 C L 71 18 121/75 93 Room Air Diagnostic Findings Knee X-Ray 01/07/24 12:25 TWO VIEWS LEFT KNEE CLINICAL HISTORY: Postoperative examination. FINDINGS: AP and crosstable lateral portable views of the left knee are obtained. A left knee arthroplasty is in near anatomic alignment. There has been undersurface remodeling of the patella. No acute fracture is seen. There are expected postoperative changes around the knee including a surgical drain, soft tissue edema, and subcutaneous gas. IMPRESSION: Expected postoperative changes status post left knee arthroplasty. No acute fracture is seen. ACT 112: Negative or not required by law. Electronically signed by: Avery Bailon M.D. 01/07/2024 12:46 PM PG Care Time/CCT Total # of Minutes Spent Total Time Spent with Patient: Total time spent is greater than 50% in coordination of care (as documented) at patient's floor/unit and/or counseling patient: Coding Level of Care Code 93311 SUB INP/OBS CARE 2/35MIN Diagnoses Status post right knee replacement Z96.651 Rheumatoid arthritis M06.9 Interstitial lung disease J84.9 Inflammatory arthritis M19.90 Type 2 diabetes mellitus E11.9 Sleep apnea G47.30 Hypothyroid E03.9
[2024-01-08 08:05] VITALS: BP 138/77; PULSE 65; TEMP 98.4
[2024-01-08] MEDS: VENLAFAXINE HCL XR 75 MG CAPXR PO SCH (08:39)
[2024-01-08] MEDS: CHOLECALCIFEROL 25 MCG (1000 UNITS) TAB PO SCH (08:39)
[2024-01-08] MEDS: MULTIVITAMIN TAB PO SCH (08:39)
[2024-01-08] MEDS: dilTIAZem HCL 180 MG CAPCR PO SCH (08:39)
[2024-01-08] MEDS: methylPREDNISolone 4 MG TAB PO SCH (08:39)
[2024-01-08] MEDS ORDERED: metFORMIN HCL ER 500 MG TABCR PO SCH (09:00)
[2024-01-08] MEDS ORDERED: CEROVITE ADV FORMULA TAB PO SCH (09:00)
[2024-01-08 09:28] VITALS: O2SAT 94
[2024-01-08] MEDS ORDERED: CeleBREX 200 MG CAP PO SCH (21:00)
[2024-01-09] MEDS ORDERED: CYANOCOBALAMIN (B-12) 500 MCG TABLET PO SCH (09:00)
== END 2024-01-08 12:44 | disposition home health service (06) ==
LOC: ASU 07:46 → 3E 07:46